=== PATIENT | male | born 1980 | race Caucasian/White ===

== ENCOUNTER 2019-03-03 20:47 | Inpatient (IN) ==
[2019-03-03] MEDS ORDERED: KETOROLAC 30 MG/ML VIAL IV ONE (21:04)
[2019-03-03] MEDS ORDERED: MoRPHine SULFATE 4 MG/ML 1 ML CARP\\VIAL IV STA (21:04)
[2019-03-03] MEDS ORDERED: CLINDAMYCIN 600 MG in DEXTROSE 5% 50 ML IV ONE (21:06)
[2019-03-03 21:20] LABS: Basophils # (auto) 0.06 K/uL (0-0.2); Basophils % (auto) 0.5 %; Eosinophils # (auto) 0.04 K/uL (0-0.5); Eosinophils % (auto) 0.3 %; Hematocrit (blood only) 42.2 % (42-52); Hemoglobin 14.9 g/dL (14.0-18.0); Immature Granulocytes # (auto) 0.03 K/uL (0.00-0.02); Immature Granulocytes % (auto) 0.2 %; Lymphocytes % (auto) 14.6 %; Mean Corpuscular Hemoglobin 36.4 pg (25-34); Mean Corpuscular Hgb Conc 35.3 g/dL (32-36); Mean Corpuscular Volume 103.2 fL (80-100); Mean Platelet Volume 8.7 fL (7.4-10.4); Monocytes # (auto) 1.55 K/uL (0.11-0.59); Monocytes % (auto) 12.6 %; Neutrophils # (auto) 8.82 K/uL (1.4-6.5); Neutrophils % (auto) 71.8 %; Platelet Count 204 K/uL (130-400); RDW Coefficient of Variation 12.3 % (11.5-14.5); RDW Standard Deviation 46.7 fL (36.4-46.3); Red Blood Count 4.09 M/uL (4.7-6.1)
[2019-03-03] MEDS ORDERED: IOVERSOL 100ml IV PRN (21:29)
[2019-03-03 21:31] LABS: iSTAT Blood Urea Nitrogen < 3 mg/dl (7-18); iSTAT Carbon Dioxide 27 mEq/l (24-31); iSTAT Chloride 98 mEq/L (101-112); iSTAT Glucose 103 mg/dl (70-99); iSTAT Hematocrit 44 % (42-52); iSTAT Ionized Calcium 1.12 mmol/l (1.12-1.32); iSTAT Potassium 3.9 mEq/L (3.3-5.0); iSTAT Sodium 135 mEq/L (135-144)
[2019-03-03 21:36] LABS: Albumin Level 3.9 gm/dl (3.4-5.0); BUN Creatinine Ratio 4.5 (10-20); Calcium 9.6 mg/dl (8.5-10.1); Creatinine Clr Calc Pharmacy 153.4 ml/min; Est GFR (African American) 146.8; Est GFR (Non-African American) 126.6
[2019-03-03 21:39] LABS: Bilirubin,Total 0.7 mg/dl (0.2-1); Globulin 3.8 gm/dl (2.5-4.0); Total Protein 7.7 gm/dl (6.4-8.2)
--- NOTE | 2019-03-03 22:12 | CT Scan Report ---
CT facial bones w con HISTORY: r sided facial swelling TECHNIQUE: Multiaxial CT images of the maxillofacial region were performed and reformatted in the cor onal plane following the use of intravenous contrast. COMPARISON STUDY: None. FINDINGS: The visualized brain parenchyma and orbits are unremarkable. Subcutaneous fat stranding and swelling within the right side of the face. There is also mild right cervical lymphadenopathy. Domin ant posterior chain lymph node measures 3.4 x 1.5 x 0.8 cm. The major cervical vessels enhance normal ly. Prevertebral soft tissues and the epiglottis are normal in thickness. The major salivary glands e nhance symmetrically. A few mildly enlarged submental lymph nodes and left submandibular lymph nodes. Multiple dental caries are present. Small periapical lucencies are noted within the bilateral lower molars and a left upper molar. There is also a periapical lucency at ADA 1 and 2 which demonstrates e xtensive/expansion into the right maxillary sinus. This could represent a large infected periapical l ucency or odontogenic cyst. This measures 2.7 x 2.8 x 1.7 cm and occupies the floor the right maxilla ry sinus. There is focal cortical breakthrough measuring 8 mm along the lower lateral portion of this periapical lucency with extension into the adjacent buccal soft tissues consistent with an abscess. This measures 1.7 x 0.5 cm and is best seen on image 138 of 261. This likely accounts for the right f acial soft tissue swelling. There is also near complete opacification of the right maxillary sinus wi th an associated fluid level and partial opacification of the right ethmoid air cells which is also c oncerning for underlying infection. IMPRESSION: 1. A 2.8 x 2.7 x 1.7 cm periapical lucency/infected odontogenic cyst at the level of ADA 1 and 2 whic h extends into the floor of the right maxillary sinus. There is also focal cortical breakthrough arslan g the lower lateral portion of this abnormality with an associated 1.7 x 0.5 cm soft tissue abscess a t the buccal surface of the lower maxilla. Oral maxillofacial surgery consultation recommended for fu rther evaluation. 2. Right facial soft tissue swelling. 3. Cervical lymphadenopathy. This is nonspecific but likely reactive. 4. Right-sided sinus disease as described above. 5. Multiple dental caries are noted. Electronically signed by: Song Acuna M.D. 03/03/2019 10:11 PM
[2019-03-03] MEDS: NICOTINE 21 MG/24 HR TDSY TD SCH (23:44)
[2019-03-03] MEDS ORDERED: LORazepam 1 MG/2 ML VIAL IV PRN (23:47)
--- NOTE | 2019-03-04 00:12 | Emergency Department Note ---
Entered by Chloe Ghosh acting as a scribe for History of Present Illness General Chief complaint: Infection Stated complaint: SEVER INFECTION MOUTH JAW NOSE AND EYE Source: patient History of Present Illness Onset (ago): day(s) (2) Location: face and mouth (jaw and teeth) Maximum Pain Intensity: 10 Current Pain Intensity: 9 Quality: + other (infection) Associated symptoms: + denies other symptoms (difficulty breathing) and + other (right eye pain, runny nose); no cough and no fever/chills The patient is a 39 year old male who presents to the Emergency Room with complaints of an infection in his jaw and teeth beginning 2 days ago. The patient states it began in his upper jaw. The patient reports the pain as a 9/10. He denies any recent dental trauma. The patient reports pain with movement of his right eye. He notes a runny nose. The patient denies cough, fever, and difficulty breathing. He reports similar symptoms previously. Pain is significantly worsened with eating and drinking. He also notes that breathing does worsen the pain. Any palpation of the right side of his face also worsens the pain. Home Medications Home Medications Medication Instructions Recorded Confirmed Type multivitamin 1 tab PO DAILY 03/03/19 03/03/19 History Allergies Allergy/AdvReac Type Severity Reaction Status Date / Time No Known Allergies Allergy Verified 03/03/19 21:38 Past Med/Surg History Medical History No significant past medical history Surgical History Hx of tonsillectomy Family History Other No pertinent family history Social History Preferred Language: Syriac marital status: Current Living Situation: Spouse and Family current occupational status: employed Feels Safe at Home: Yes Smoking Status: Current every day smoker Review of Systems See HPI for pertinent positives & negatives. and A total of 10 systems reviewed and were otherwise negative Physical Exam Vital Signs Vital Signs - 24 hr 03/03/19 20:52 03/03/19 21:42 03/03/19 22:57 Temperature Source Oral Pulse Rate 107 H Pulse Rate [Right Finger] 100 H Respiratory Rate 16 20 Respiratory Effort / Characteristics Non-Labored Non-Labored Respiratory Depth Normal Normal Blood Pressure 145/93 H Blood Pressure [Right Arm] 119/91 Blood Pressure Mean 110 Blood Pressure Mean [Right Arm] 100 Blood Pressure Position Sitting Pulse Oximetry 99 99 100 Oxygen Delivery Method Room Air Room Air Room Air Sepsis Recent Fever Within 48 Hours No Sepsis New/Unexplained Change in Mental Status No Sepsis Action Taken by Nursing No Action Required GENERAL: Sitting up in bed, disheveled, mild distress, holding right side of face EYE EXAM: normal conjunctiva FACE: Swelling below right eye and over right check. OROPHARYNX: No swelling below tongue. Tolerates secretions. Poor dentition. Number 1 tooth with black stub present. Teeth 3, 4, and 5 are fractured with multiple dental carries, stained yellow, no palpable abscess. NECK: supple, no nuchal rigidity, no adenopathy, non-tender LUNGS: Clear to auscultation. Normal chest wall mechanics HEART: no murmurs, S1 normal and S2 normal ABDOMEN: abdomen soft, non-tender, normo-active bowel sounds, no masses, no rebound or guarding. SKIN: no rashes and no bruising UPPER EXTREMITIES: upper extremities are grossly normal. LOWER EXTREMITIES: No pitting edema. NEURO EXAM: Normal sensorium Course Course ED COURSE: Vital signs were reviewed and showed tachycardia and hypertension. The patients medical record was reviewed The above diagnostic studies were performed and reviewed. ED treatments and interventions as stated above. 2100: The patient was evaluated in room B08. A complete history and physical examination was performed. 2229: Upon reevaluation, the patient is resting more comfortably.I discussed my findings with the patient and he understands and agrees with the treatment plan. I spoke with Dr. Morales [facility] Hospitalist who agrees to further manage the patient. Based on the patients age, coexisting illnesses, exam and lab findings the decision to treat as an inpatient was made. The patient remained stable while under my care. The patient will be evaluated for further management. Administered Medications Ioversol (Optiray 320 100ml) 93 ml IV ONCE PRN PRN Reason: Interaction Checking Stop: 03/07/19 21:28 Last Admin: 03/03/19 21:29 Dose: 93 ml Documented by: [id number] Nicotine (Nicoderm Cq) 21 mg TD QAM ELSY Stop: 04/02/19 23:39 Last Admin: 03/03/19 23:44 Dose: 21 mg Documented by: [id number] Discontinued Medications Clindamycin Phosphate 600 mg/ (Dextrose) 54 mls @ 100 mls/hr IV ONE ONE Stop: 03/03/19 21:38 Last Infusion: 03/03/19 22:16 Dose: 0 mls/hr Documented by: [id number] Admin: 03/03/19 21:41 Dose: 100 mls/hr Documented by: [id number] Ketorolac Tromethamine (Toradol) 30 mg IV NOW ONE Stop: 03/03/19 21:05 Last Admin: 03/03/19 21:38 Dose: 30 mg Documented by: [id number] Morphine Sulfate (Morphine Sulfate) 4 mg IV NOW STA Stop: 03/03/19 21:05 Last Admin: 03/03/19 21:38 Dose: 4 mg Documented by: [id number] Medical Decision Making Differential Diagnosis Differential diagnoses includes but is not limited to dental fracture, dental carries, and dental abscess. Medical Records Attestation: I reviewed the patient's medical records. Home Medications Current Medication List: was personally reviewed by me Laboratory Data Attestation: I reviewed the patient's lab results. Result diagrams: 03/03/19 21:13 03/03/19 21:13 Lab Results 03/03/19 03/03/19 03/03/19 Range/Units 21:13 21:13 21:16 WBC 12.30 H (4.8-10.8) K/uL RBC 4.09 L (4.7-6.1) M/uL Hgb 14.9 (14.0-18.0) g/dL POC Hgb 15.0 (14.0-18.0) g/dl Hct 42.2 (42-52) % POC Hct 44 (42-52) % MCV 103.2 H (80-100) fL MCH 36.4 H (25-34) pg MCHC 35.3 (32-36) g/dL RDW Std Deviation 46.7 H (36.4-46.3) fL RDW Coeff of Shanika 12.3 (11.5-14.5) % Plt Count 204 (130-400) K/uL MPV 8.7 (7.4-10.4) fL Immature Gran % (Auto) 0.2 % Neut % (Auto) 71.8 % Lymph % (Auto) 14.6 % [place] % (Auto) 12.6 % Eos % (Auto) 0.3 % Baso % (Auto) 0.5 % Immature Gran # (Auto) 0.03 H (0.00-0.02) K/uL Neut # (Auto) 8.82 H (1.4-6.5) K/uL Lymph # (Auto) 1.80 (1.2-3.4) K/uL [place] # (Auto) 1.55 H (0.11-0.59) K/uL Eos # (Auto) 0.04 (0-0.5) K/uL Baso # (Auto) 0.06 (0-0.2) K/uL POC Sodium 135 (135-144) mEq/L Sodium 135 L (136-145) mmol/L POC Potassium 3.9 (3.3-5.0) mEq/L Potassium 4.0 (3.5-5.1) mmol/L POC Chloride 98 L (101-112) mEq/L Chloride 101 (98-107) mmol/L Carbon Dioxide 28 (21-32) mmol/L POC Total CO2 27 (24-31) mEq/l Anion Gap 7.0 (3-11) POC Anion Gap 14.0 L (16-25) mmol/L POC BUN < 3 L (7-18) mg/dl BUN 3 L (7-18) mg/dl Creatinine 0.58 L (0.6-1.4) mg/dl POC Creatinine 1.0 (0.6-1.3) mg/dl Est Cr Clr Drug Dosing 153.4 ml/min Est GFR ( Amer) 146.8 Est GFR (Non-Af Amer) 126.6 BUN/Creatinine Ratio 4.5 L (10-20) Glucose 101 H (70-99) mg/dl POC Glucose (other) 103 H (70-99) mg/dl Calcium 9.6 (8.5-10.1) mg/dl POC Ioniz Calcium Ancelmo 1.12 (1.12-1.32) mmol/l Total Bilirubin 0.7 (0.2-1) mg/dl AST 16 (15-37) U/L ALT 20 (12-78) U/L Alkaline Phosphatase 65 (45-117) U/L Total Protein 7.7 (6.4-8.2) gm/dl Albumin 3.9 (3.4-5.0) gm/dl Globulin 3.8 (2.5-4.0) gm/dl Albumin/Globulin Ratio 1.0 (0.9-2) Imaging Data Radiologist's Impression: Radiology results as stated below per my review and the radiologist's interpretation: CT facial bones w con HISTORY: r sided facial swelling TECHNIQUE: Multiaxial CT images of the maxillofacial region were performed and reformatted in the coronal plane following the use of intravenous contrast. COMPARISON STUDY: None. FINDINGS: The visualized brain parenchyma and orbits are unremarkable. Subcutaneous fat stranding and swelling within the right side of the face. There is also mild right cervical lymphadenopathy. Dominant posterior chain lymph node measures 3.4 x 1.5 x 0.8 cm. The major cervical vessels enhance normally. Prevertebral soft tissues and the epiglottis are normal in thickness. The major salivary glands enhance symmetrically. A few mildly enlarged submental lymph nodes and left submandibular lymph nodes. Multiple dental caries are present. Small periapical lucencies are noted within the bilateral lower molars and a left upper molar. There is also a periapical lucency at ADA 1 and 2 which demonstrates extensive/expansion into the right maxillary sinus. This could represent a large infected periapical lucency or odontogenic cyst. This measures 2.7 x 2.8 x 1.7 cm and occupies the floor the right maxillary sinus. There is focal cortical breakthrough measuring 8 mm along the lower lateral portion of this periapical lucency with extension into the adjacent buccal soft tissues consistent with an abscess. This measures 1.7 x 0.5 cm and is best seen on image 138 of 261. This likely accounts for the right facial soft tissue swelling. There is also near complete opacification of the right maxillary sinus with an associated fluid level and partial opacification of the right ethmoid air cells which is also concerning for underlying infection. IMPRESSION: 1. A 2.8 x 2.7 x 1.7 cm periapical lucency/infected odontogenic cyst at the level of ADA 1 and 2 which extends into the floor of the right maxillary sinus. There is also focal cortical breakthrough along the lower lateral portion of this abnormality with an associated 1.7 x 0.5 cm soft tissue abscess at the buccal surface of the lower maxilla. Oral maxillofacial surgery consultation recommended for further evaluation. 2. Right facial soft tissue swelling. 3. Cervical lymphadenopathy. This is nonspecific but likely reactive. 4. Right-sided sinus disease as described above. 5. Multiple dental caries are noted. Electronically signed by: Song Acuna M.D. 03/03/2019 10:11 PM Blood Pressure Blood Pressure Findings: Elevated blood pressure Blood Pressure Disposition: elevated BP felt to be situational MDM Narrative Patient is a 39-year-old male who presents the ER for 2 days worth of right- sided facial swelling. Pain is significantly worsened. He notes he has some pain with range of motion of his eye. On exam he does have swelling to the anterior right face. Vital show that he is tachycardic. Labs show a leukoc ytosis of 12.3 thousand. No significant anemia. BMP was unremarkable along with LFTs bilirubin. CT of the face shows a moderate dental abscess with erosion of the right maxillary sinus. Patient was given IV fluids and IV narcotics along with IV clindamycin. He was updated bedside. Discussed with oral maxillary facial surgery. Patient will be admitted to the hospitalist. Both patient and significant other were updated bedside. Impression & Plan Dental abscess, Facial swelling, Facial pain Discharge Plan Visit Data Chief Complaint: Infection Stated Complaint: SEVER INFECTION MOUTH JAW NOSE AND EYE ED Provider: Leonel Guevara Discharge Problem: Dental abscess, Facial swelling, Facial pain Patient Disposition: Being Evaluated by Hospitalist Discharge Instructions Interventions: ED Discharge Assessment Last Done: 03/04/19 00:00 Forms Stand Alone Forms: My [facility] [employer] Prescriptions Prescriptions: No Action multivitamin Tablet,Chewable 1 tab PO DAILY RF: 0 Referrals Referrals: PCP,NO [Primary Care Provider] - The scribe's documentation has been prepared under my direction and personally reviewed by me in its entirety. I confirm that the note above accurately reflects all work, treatment, procedures, and medical decision making performed by me.
[2019-03-04] MEDS: HYDROmorphone INJ 0.5 MG/0.5 ML SYR IV PRN ×4 (00:27→20:17)
[2019-03-04] MEDS ORDERED: ONDANSETRON INJ 2 MG/ML 2 ML VIAL IV PRN (00:48)
[2019-03-04] MEDS ORDERED: POLYETHYLENE (MIRALAX) 17 GM PACK PO PRN (00:48)
[2019-03-04] MEDS: SODIUM CHLORIDE 0.9% 1000ML 1,000 ML IV SCH ×3 (01:01→20:42)
--- NOTE | 2019-03-04 02:44 | History and Physical Report ---
DATE OF ADMISSION: 03/03/2019 CHIEF COMPLAINT: Dental infection. HISTORY OF PRESENT ILLNESS: This is a 39-year-old male with past medical history significant for dental infection, in the past he was supposed to get tooth extracted about 2 years ago but was not done because of insurance issues , history of tobacco abuse,presents with dental infection at his right side since last 3 days and the right side of the face is swollen. He has pain shooting into his head and his ears, not able to eat food, has a fever at home which prompted him to come to the ER. In the ER, imaging studies with CAT scan was done which shows a periapical infected odontogenic cyst at the level of ADA 1 and 2 which extends into the floor of the right maxillary sinus and also a soft tissue abscess in the buccal surface of the lower maxilla. ER talked to oral maxillofacial surgery and they are going to come and see the patient in the morning. IV clindamycin was given in the ER and patient requiring IV pain medications. Currently, resting comfortable and hemodynamically stable. Has headache and earache from the infection. No runny nose. No chest pain, no shortness of breath, no cough, he felt nauseous due to pain, no abdominal pain. No diarrhea or constipation, no black stools or bloody stools. No hematuria or burning micturition, no swelling in the legs, no rash. ALLERGIES: No known drug allergies. PAST SURGICAL HISTORY: Tonsillectomy. MEDICATIONS: Multivitamins. FAMILY HISTORY: Significant for mother had diabetes. Father had COPD. Aunt has diabetes. Maternal grandmother has lung cancer, she was a smoker. SOCIAL HISTORY: He says he is and lives with his . Smokes one and a half pack cigarettes day. Alcohol, drinks 2 or 3 beers every day. No drug use. REVIEW OF SYMPTOMS: As per HPI. Rest of review of systems negative. PHYSICAL EXAMINATION: GENERAL: The patient is of moderate build, not in acute distress. VITAL SIGNS: Temperature, afebrile, pulse 100, respiratory rate 20, blood pressure 119/91, oxygen 100% room air. HEENT: No pallor, no icterus. Pupils equal, round, reactive to light. Right-sided face is swollen. No erythema seen. tender to palpation. NECK: No JVD, no neck masses. CARDIOVASCULAR: S1, S2 heard, regular rate and rhythm, no murmur, no gallop. RESPIRATORY SYSTEM: Normal AP diameter. No accessory muscle use. No wheezing, no crackles. ABDOMEN: Soft, bowel sounds present, nontender. No distention. CENTRAL NERVOUS SYSTEM: Cranial nerves II-XII grossly intact. Nonfocal. EXTREMITIES: No edema, no erythema. LABORATORY DATA: WBC 12.3, hemoglobin 14.9, hematocrit 42.2, platelets 204. Sodium 135, potassium 4, chloride 101, bicarbonate 28, BUN 3, creatinine 0.5, serum glucose 101, calcium 9.6, total bilirubin 0.7, AST 16, ALT 20, alkaline phosphatase 65,. Facial CT 2.8 x 2.7 x 1.7 periapical lucency infected odontogenic cyst at the level of ADA 1 and 2 which extends to the floor of the right maxillary sinus. There is also a focal cortical breakthrough along the lower lateral portion of this abnormality with an associated 1.7 x 0.5 cm soft tissue abscess at the buccal surface of the lower maxilla. Oral maxillofacial surgery consultation is recommended for further evaluation. Right facial soft tissue swelling, cervical lymphadenopathy, this is nonspecific, but likely reactive. Right sinus disease, multiple dental caries as noted. ASSESSMENT AND PLAN: This is a 39-year-old male who presents with dental abscess. 1. Dental abscess and also multiple dental caries, IV antibiotics with clindamycin 600 t.i.d. Oral surgeon was notified by the ER and will consult in a.m. Keep him n.p.o., IV fluids, pain control. 2. Tobacco use: On nicotine patch. 3. Alcoholism: drinks beers 2 or 3 beers per day . Denies withdrawal symptoms if he doesn't drink.We will give IV thiamine and folic acid, IV Ativan p.r.n. for any withdrawal symptoms. 3. Deep venous thrombosis prophylaxis, sequential compression devices for now. 4. Disposition: Admit to medical floor. Level 1 full code. MTDD
[2019-03-04] MEDS: CLINDAMYCIN 600 MG in DEXTROSE 5% 50 ML IV SCH ×3 (05:22→21:14)
[2019-03-04 05:25] LABS: Basophils # (auto) 0.05 K/uL (0-0.2); Basophils % (auto) 0.5 %; Eosinophils # (auto) 0.03 K/uL (0-0.5); Eosinophils % (auto) 0.3 %; Hematocrit (blood only) 39.8 % (42-52); Hemoglobin 13.8 g/dL (14.0-18.0); Immature Granulocytes # (auto) 0.03 K/uL (0.00-0.02); Immature Granulocytes % (auto) 0.3 %; Lymphocytes # (auto) 1.91 K/uL (1.2-3.4); Lymphocytes % (auto) 19.5 %; Mean Corpuscular Hgb Conc 34.7 g/dL (32-36); Mean Corpuscular Volume 103.9 fL (80-100); Mean Platelet Volume 8.7 fL (7.4-10.4); Monocytes % (auto) 14.3 %; Neutrophils # (auto) 6.35 K/uL (1.4-6.5); Neutrophils % (auto) 65.1 %; Platelet Count 184 K/uL (130-400); RDW Coefficient of Variation 12.4 % (11.5-14.5); RDW Standard Deviation 47.4 fL (36.4-46.3); Red Blood Count 3.83 M/uL (4.7-6.1); White Blood Count 9.77 K/uL (4.8-10.8)
[2019-03-04 05:40] LABS: BUN Creatinine Ratio 6.7 (10-20); Blood Urea Nitrogen 4 mg/dl (7-18); Calcium 8.6 mg/dl (8.5-10.1); Carbon Dioxide 25 mmol/L (21-32); Chloride 107 mmol/L (98-107); Creatinine Clr Calc Pharmacy 166.6 ml/min; Est GFR (African American) > 150.0; Est GFR (Non-African American) 131.4; Glucose 80 mg/dl (70-99); Magnesium 2.3 mg/dl (1.8-2.4); Potassium 4.1 mmol/L (3.5-5.1); Sodium 138 mmol/L (136-145)
[2019-03-04] MEDS: ACETAMINOPHEN 325 MG TAB PO PRN ×2 (05:42→12:53)
--- NOTE | 2019-03-04 07:43 | Surgery Consultation ---
Date of Consultation Reason for consult=acute right side upper facial swelling--3 cm collection of pus from infected teeth. Review of CT scan=I reviewed the CT scan and agree with the reading, acute infection upper right, very poor dentition and reactive nodes. Oral Exam-extensive dental decay and fractured teeth, all teeth are beyond repair and future full mouth extraction will be needed. Draining fistula and gross decay noted on almost every tooth. Present Complaint:pain, swelling Upper right side and face abscess A detailed oral exam was completed. Soft tissue---swelling right cheek, mucobuccal fold, draining fistula noted on many teeth and localized infection Oral Care---Overall oral care is very poor Occlusion---N/A TMJ exam---No pop, clicking, pain, good ROM Periodontal exam---poor The soft tissue of the tongue, floor of mouth, palate (hard/soft) all WNL Right posterior =abscess from infected teeth, chronic gingival infection from decayed teeth Neck is supple, FROM, Able to extend and flex neck w/o difficulty, Tender right submandular glands due to current right side infection. Plan: Discussed findings and treatment plan with patient, he is in agreement. Take patient to the OR and drain the infection upper right side, will need to extract teeth # 1,2,3,4,5 maybe other as this is an extensive infection and localized infection involving the upper right teeth and whole upper jaw. I will plan OR today. History of Present Illness Attending Physician: Shahram Arreguin DO Allergies Allergy/AdvReac Type Severity Reaction Status Date / Time No Known Allergies Allergy Verified 03/03/19 21:38 Home Medications Home Medications Medication Instructions Recorded Confirmed Type multivitamin 1 tab PO DAILY 03/03/19 03/03/19 History Patient History Medical History No significant past medical history Surgical History Hx of tonsillectomy Family History Other No pertinent family history Social History Preferred Language: Slovenian Communication Ability: Effective Dye Blender Required: No Beliefs That Will Affect Care: None marital status: Current Living Situation: Spouse current occupational status: employed Feels Safe at Home: Yes Safety Concerns: Feels Safe At This Time Smoking Status: Current every day smoker Tobacco Type: cigarettes ; Cigarettes Per Day: 20 ; Do You Dip or Chew Tobacco: No ; Tobacco Cessation Education Requested by Patient: No Hx Alcohol Use: Yes Alcohol type: beer Hx Substance Use: No Results & Data Vital Signs (Past 12 Hours) Vital Signs Temp Pulse Pulse Resp BP BP Pulse Ox 03/04/19 00:10 37.1 C 101 H 18 118/73 94 03/03/19 22:57 100 H 20 119/91 100 03/03/19 21:42 99 03/03/19 20:52 107 H 16 145/93 H 99 PG Care Time/CCT Total # of Minutes Spent Total Time Spent with Patient: Total time spent is greater than 50% in coordination of care (as documented) at patient's floor/unit and/or counseling patient:
--- NOTE | 2019-03-04 07:51 | Hospitalist Progress Note ---
Date of Service March 04, 2019 Assessment & Plan (1) Dental abscess: ASSESSMENT AND PLAN: This is a 39-year-old male who presents with dental abscess. 1. Dental abscess and also multiple dental caries, IV antibiotics with clindamycin 600 t.i.d. Oral surgeon was notified by the ER and has seen the patient Keep him n.p.o., IV fluids, pain control. 2. Tobacco use: On nicotine patch. 3. Alcoholism: drinks beers 2 or 3 beers per day . Denies withdrawal symptoms if he doesn't drink.We will give IV thiamine and folic acid, IV Ativan p.r.n. for any withdrawal symptoms. 4. Leukocytosis 5. Deep venous thrombosis prophylaxis, sequential compression devices for now. Disposition: DC after OMFS workup complete Labs reviewed ROS-No Headache, No Visual Changes, No Nausea, No Vomiting, No Fever, No Chills, No Neck Pain or Stiffness, No Chest Pain, No Palpitations, No SOB, No BROOKS, No Cough, No Sputum, No Wheezing, No Abdominal Pain, No Diarrhea, No Hematemesis, No Hemoptysis, No Unexpected Weight Loss, No Flank pain, No Melena, No Hematochezia, No Frequency, No Urgency, No Burning, No Hematuria, No Rashes, No Diaphoresis. Appetite is Normal, +Facial Pain and Swelling R>L Physical Exam Gen-AAO x 3, NAD, Afebrile Head-NCAT, EOMI, PERRLA, Anicteric Sclera, No Posterior Pharyngeal Erythema Neck-Supple, No JVD, No Thyromegaly, No Masses, No LAD, No Bruits Lungs-Clear to Auscultation Bilaterally, No Rales, No Rhonchi, No Wheezing, No Crepitus Chest-No S4, +S1, +S2, No S3, No Murmurs, No Rubs, No Gallops, No Ectopy Abdomen-Soft, Bowel Sounds Present, Non Tender, Non Distended, No Hepatomegaly, No Splenomegaly, No Palpable Masses, No Rebound, No Rigidity, No Guarding Musculoskeletal-Full Range of Motion Bilaterally, No CVAT Extremities-No Cyanosis, No Clubbing, No Edema Nuero-Cranial Nerves II-XII grossly intact, Motor WNL, DTRs WNL, Strength WNL, Non Focal Psych-Normal Mood Results & Data Vital Signs (Past 12 Hours) Vital Signs Temp Pulse Pulse Resp BP BP Pulse Ox 03/04/19 00:10 37.1 C 101 H 18 118/73 94 03/03/19 22:57 100 H 20 119/91 100 03/03/19 21:42 99 03/03/19 20:52 107 H 16 145/93 H 99 Allergies No Known Allergies Allergy (Verified 03/03/19 21:38) Height/Weight/Isolation Height 5 ft 10 in Weight 64.2 kg CBC 03/03/19 03/03/19 03/03/19 21:13 21:13 21:16 WBC 12.30 H RBC 4.09 L Hgb 14.9 POC Hgb 15.0 Hct 42.2 POC Hct 44 MCV 103.2 H MCH 36.4 H MCHC 35.3 RDW Std Deviation 46.7 H RDW Coeff of Shanika 12.3 Plt Count 204 MPV 8.7 Immature Gran % (Auto) 0.2 Neut % (Auto) 71.8 Lymph % (Auto) 14.6 [place] % (Auto) 12.6 Eos % (Auto) 0.3 Baso % (Auto) 0.5 Immature Gran # (Auto) 0.03 H Neut # (Auto) 8.82 H Lymph # (Auto) 1.80 [place] # (Auto) 1.55 H Eos # (Auto) 0.04 Baso # (Auto) 0.06 POC Sodium 135 Sodium 135 L POC Potassium 3.9 Potassium 4.0 POC Chloride 98 L Chloride 101 Carbon Dioxide 28 POC Total CO2 27 Anion Gap 7.0 POC Anion Gap 14.0 L POC BUN < 3 L BUN 3 L Creatinine 0.58 L POC Creatinine 1.0 Est Cr Clr Drug Dosing 153.4 Est GFR ( Amer) 146.8 Est GFR (Non-Af Amer) 126.6 BUN/Creatinine Ratio 4.5 L Glucose 101 H POC Glucose (other) 103 H Calcium 9.6 POC Ioniz Calcium Ancelmo 1.12 Magnesium Total Bilirubin 0.7 AST 16 ALT 20 Alkaline Phosphatase 65 Total Protein 7.7 Albumin 3.9 Globulin 3.8 Albumin/Globulin Ratio 1.0 03/04/19 03/04/19 05:13 05:13 WBC 9.77 RBC 3.83 L Hgb 13.8 L POC Hgb Hct 39.8 L POC Hct MCV 103.9 H MCH 36.0 H MCHC 34.7 RDW Std Deviation 47.4 H RDW Coeff of Shanika 12.4 Plt Count 184 MPV 8.7 Immature Gran % (Auto) 0.3 Neut % (Auto) 65.1 Lymph % (Auto) 19.5 [place] % (Auto) 14.3 Eos % (Auto) 0.3 Baso % (Auto) 0.5 Immature Gran # (Auto) 0.03 H Neut # (Auto) 6.35 Lymph # (Auto) 1.91 [place] # (Auto) 1.40 H Eos # (Auto) 0.03 Baso # (Auto) 0.05 POC Sodium Sodium 138 POC Potassium Potassium 4.1 POC Chloride Chloride 107 Carbon Dioxide 25 POC Total CO2 Anion Gap 6.0 POC Anion Gap POC BUN BUN 4 L Creatinine 0.53 L POC Creatinine Est Cr Clr Drug Dosing 166.6 Est GFR ( Amer) > 150.0 Est GFR (Non-Af Amer) 131.4 BUN/Creatinine Ratio 6.7 L Glucose 80 POC Glucose (other) Calcium 8.6 POC Ioniz Calcium Ancelmo Magnesium 2.3 Total Bilirubin AST ALT Alkaline Phosphatase Total Protein Albumin Globulin Albumin/Globulin Ratio Chemistry 03/03/19 03/04/19 21:13 05:13 Sodium 135 L 138 Potassium 4.0 4.1 Chloride 101 107 Carbon Dioxide 28 25 Anion Gap 7.0 6.0 BUN 3 L 4 L Creatinine 0.58 L 0.53 L Glucose 101 H 80
[2019-03-04] MEDS ORDERED: INFLUENZA ADMINISTRATION CHARGE ONE (08:30)
[2019-03-04] MEDS ORDERED: INFLUENZA VIRUS QUAD VACCINE 0.5 ML SYR IM ONE (08:30)
[2019-03-04] MEDS ORDERED: NICOTINE 21 MG/24 HR TDSY TD SCH (09:00)
[2019-03-04] MEDS ORDERED: FOLIC ACID 1 MG in SYRINGE 9.8 ML IV SCH (09:00)
[2019-03-04] MEDS ORDERED: THIAMINE HCL 100 MG in SYRINGE 9 ML IV SCH (09:00)
[2019-03-04] MEDS: NICOTINE 21 MG/24 HR TDSY TD SCH (09:32)
[2019-03-04] MEDS: CEROVITE ADV FORMULA TAB PO SCH (09:32)
--- NOTE | 2019-03-04 13:46 | Anesthesiology Consultation ---
Date of Service March 04, 2019 Assessment & Plan (1) Encounter for pre-operative examination: Chart Review Chart Review: Acceptable Risk for Surgery History Surgery Operation Date: 03/04/19 09:40 Proposed Procedures p Right Incision and Drainage Upper Face Abscess - Vitaly Desir, DMD s 2 Dental Extractions, Possible Multiple - Vitaly Desir DMD Height/Weight Height: 5 ft 10 in Weight: 64.2 kg Allergies Allergy/AdvReac Type Severity Reaction Status Date / Time No Known Allergies Allergy Verified 03/03/19 21:38 Medications Home Medications Medication Instructions Recorded Confirmed Last Taken multivitamin 1 tab PO DAILY 03/03/19 03/03/19 Unknown Active Medications Generic Name Dose Route Start Last Admin Trade Name Freq PRN Reason Stop Dose Admin Acetaminophen 650 mg 03/04/19 00:48 03/04/19 12:53 Tylenol PO 04/03/19 00:47 650 mg Q4H PRN Administration pain/fever Hydromorphone HCl 0.5 mg 03/03/19 23:40 03/04/19 07:32 Dilaudid IV 03/17/19 23:39 0.5 mg Q3H PRN Administration Pain Thiamine HCl 100 mg/ Syringe 10 mls @ 2 mls/min 03/04/19 09:00 03/04/19 09:07 IV 04/03/19 08:59 2 mls/min QAM ELSY Administration Folic Acid 1 mg/ Syringe 10 mls @ 5 mls/min 03/04/19 09:00 03/04/19 09:07 IV 04/03/19 08:59 5 mls/min QAM ELSY Administration Sodium Chloride 1,000 mls @ 125 mls/hr 03/04/19 00:55 03/04/19 09:06 Nss 1000ml IV 04/03/19 00:54 125 mls/hr .Q8H ELSY Administration Clindamycin Phosphate 600 mg/ 54 mls @ 100 mls/hr 03/04/19 06:00 03/04/19 13:30 Dextrose IV 03/14/19 05:59 100 mls/hr Q8H ELSY Administration Miscellaneous 1 ea 03/04/19 08:59 03/04/19 09:17 Remove Nicoderm Patch N/A 04/03/19 08:58 1 ea [id number] ELSY Administration Multivitamins/Minerals 1 tab 03/04/19 09:00 03/04/19 09:32 Multivitamin W/ Minerals Tab PO 04/03/19 08:59 1 tab QAM ELSY Administration Nicotine 21 mg 03/03/19 23:40 03/04/19 09:32 Nicoderm Cq TD 04/02/19 23:39 21 mg QAM ELSY Administration Past Medical History Medical History No significant past medical history Past Family History Family History Other No pertinent family history Past Surgical History Surgical History Hx of tonsillectomy Social History Smoking Status: Current every day smoker tobacco type: cigarettes Smoking cigarettes per day: 20 Do You Dip or Chew Tobacco: No Hx Alcohol Use: Yes Alcohol type: beer alcohol intake frequency: 0-2 drinks per day Hx Substance Use: No Physical Exam Vital Signs Last Vital Signs Temp 37.0 C 03/04/19 08:00 Pulse 80 03/04/19 08:00 Resp 18 03/04/19 08:00 BP 118/62 03/04/19 08:00 Pulse Ox 96 03/04/19 08:00 Testing Laboratory Results 03/04/19 05:13 03/04/19 05:13
[2019-03-04] MEDS ORDERED: BUPIVACAINE/EPINEPHRINE 0.5% 1:200,000 1.8 ML CARP ONE ×2 (16:14→18:08)
[2019-03-04] MEDS ORDERED: CHLORHEXIDINE GLUCONATE 0.12% 480 ML ONE (16:14)
[2019-03-04] MEDS ORDERED: MIDAZOLAM HCL 1 MG/ML 2ML VIAL ONE (17:10)
[2019-03-04] MEDS ORDERED: fentaNYL citrate 100 MCG/2 ML VIAL ONE ×3 (17:10→19:33)
[2019-03-04] MEDS ORDERED: ROCURONIUM BROMIDE 10 MG/ML 5 ML VIAL ONE (17:13)
[2019-03-04] MEDS ORDERED: PROPOFOL IV EMULSION 10 MG/ML 20 ML VIAL IV ONE (17:13)
[2019-03-04] MEDS ORDERED: LIDOCAINE HCL 2% 2 ML VIAL/AMP(20MG/ML) INFIL ONE (17:13)
[2019-03-04] MEDS ORDERED: ATROPINE SULFATE 0.1 MG/ML 10ML SYR IV PRN (17:22)
[2019-03-04] MEDS ORDERED: ePHEDrine sulfate 50 MG/ML AMP IV PRN (17:22)
[2019-03-04] MEDS ORDERED: fentaNYL citrate 100 MCG/2 ML VIAL IV PRN (17:22)
--- NOTE | 2019-03-04 17:24 | History & Physical Bridge Note ---
Date of Service March 04, 2019 History & Physical Bridge Note I have examined the patient, reviewed the History & Physical and in the interval since the performance of the History & Physical I have noted the following changes of clinical significance: no changes noted. swelling continues upper right side. Plan I&D and extraction of involved teeth.
[2019-03-04] MEDS ORDERED: PHENYLEPHRINE 100MCG/ML 5ML SYR ONE (18:40)
[2019-03-04] MEDS ORDERED: DEXAMETHASONE SOD INJ 4 MG/ML VIAL ONE (18:45)
[2019-03-04] MEDS ORDERED: ONDANSETRON INJ 2 MG/ML 2 ML VIAL ONE (18:45)
--- NOTE | 2019-03-04 19:03 | History & Physical Bridge Note ---
Date of Service March 04, 2019 History & Physical Bridge Note I have examined the patient, reviewed the History & Physical and in the interval since the performance of the History & Physical I have noted the following changes of clinical significance: no changes noted
--- NOTE | 2019-03-04 19:04 | Post Operative Brief Note ---
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 culture naso maxillary abscess B. sinus fistula - pathology
--- NOTE | 2019-03-04 19:28 | Anesthesiology Progress Note ---
Date of Service March 04, 2019 Anesthesia Post Procedure Vital Signs Vital Signs: Temp Pulse Pulse Pulse Resp BP BP 03/04/19 17:07 37.2 C 98 H 96 H 16 148/96 H 03/04/19 15:26 36.9 C 73 16 132/83 03/04/19 08:00 37.0 C 80 18 118/62 03/04/19 00:10 37.1 C 101 H 18 118/73 03/03/19 22:57 100 H 20 119/91 03/03/19 21:42 03/03/19 20:52 107 H 16 145/93 H Pulse Ox 03/04/19 17:07 100 03/04/19 15:26 100 03/04/19 08:00 96 03/04/19 00:10 94 03/03/19 22:57 100 03/03/19 21:42 99 03/03/19 20:52 99 Pain Intensity Mouth: Pain Intensity: 8 Transfer of Care Handoff Completed per policy Notes Mental Status: alert / awake / arousable and participated in evaluation Patient Amnestic to Procedure: Yes Nausea / Vomiting: adequately controlled Pain: adequately controlled Airway Patency, RR, SpO2: stable & adequate BP & HR: stable & adequate Hydration State: stable & adequate Anesthetic Complications: no major complications apparent and Pt Satisfied with anesthetic care
[2019-03-04] MEDS ORDERED: cloNIDine HCL 0.1 MG TAB PO PRN (21:30)
[2019-03-04] MEDS ORDERED: MoRPHine SULFATE 2 MG/ML CARP IV PRN (22:05)
[2019-03-04] MEDS: MoRPHine SULFATE 2 MG/ML CARP IV PRN (22:14)
[2019-03-05] MEDS: MoRPHine SULFATE 2 MG/ML CARP IV PRN ×3 (00:22→07:34)
[2019-03-05] MEDS: CLINDAMYCIN 600 MG in DEXTROSE 5% 50 ML IV SCH (05:01)
[2019-03-05] MEDS: SODIUM CHLORIDE 0.9% 1000ML 1,000 ML IV SCH (05:02)
[2019-03-05] MEDS: ACETAMINOPHEN 325 MG TAB PO PRN (06:09)
[2019-03-05 06:40] LABS: Hemoglobin 14.1 g/dL (14.0-18.0); Mean Corpuscular Hemoglobin 35.6 pg (25-34); Mean Corpuscular Hgb Conc 33.6 g/dL (32-36); Mean Corpuscular Volume 106.1 fL (80-100); Mean Platelet Volume 9.6 fL (7.4-10.4); Platelet Count 247 K/uL (130-400); RDW Standard Deviation 46.6 fL (36.4-46.3); Red Blood Count 3.96 M/uL (4.7-6.1); White Blood Count 10.96 K/uL (4.8-10.8)
[2019-03-05 07:14] LABS: BUN Creatinine Ratio 10.2 (10-20); Calcium 9.3 mg/dl (8.5-10.1); Creatinine Clr Calc Pharmacy 149.6 ml/min; Est GFR (African American) 145.8; Est GFR (Non-African American) 125.8; Potassium 4.4 mmol/L (3.5-5.1)
[2019-03-05] MEDS: NICOTINE 21 MG/24 HR TDSY TD SCH (07:35)
[2019-03-05] MEDS: CEROVITE ADV FORMULA TAB PO SCH (07:36)
--- NOTE | 2019-03-05 07:50 | Discharge Summary ---
Date of Service March 05, 2019 Principal Diagnosis Dental Abscess Leukocytosis Nausea and Vomiting Discharge Exam See Below Discharge Data Allergies Allergy/AdvReac Type Severity Reaction Status Date / Time No Known Allergies Allergy Verified 03/03/19 21:38 Consultations 03/03/19 22:31 ED Decision to Admit Stat 03/04/19 08:00 Consult Oromaxillofacial Surgery Routine Current Diagnoses Periapical abscess without sinus (03/03/19) Encounter for other preprocedural examination (03/03/19) Allergies No Known Allergies Allergy (Verified 03/03/19 21:38) Height/Weight/Isolation Height 5 ft 10 in Weight 64.2 kg Chemistry 03/03/19 03/04/19 03/05/19 21:13 05:13 05:48 Sodium 135 L 138 132 L Potassium 4.0 4.1 4.4 Chloride 101 107 99 Carbon Dioxide 28 25 21 Anion Gap 7.0 6.0 12.0 H BUN 3 L 4 L 6 L Creatinine 0.58 L 0.53 L 0.59 L Glucose 101 H 80 156 H Microbiology 03/04/19 Unknown Face Gram Stain - Final 03/04/19 Unknown Face Aerobic and Anaerobic Culture - Pending Procedures Performed Operation Date: 03/04/19 09:40 Actual Procedures p Right Incision and Drainage Upper Face Abscess, closure oral sinus opening(Right) - Vitaly Desir DMD s Dental Extractions 16 teeth and roots(Right) - Vitaly Desir DMD Ordered Studies 03/03/19 21:04 CT facial bones w con Stat Hospital Course (1) Dental abscess: ASSESSMENT AND PLAN: This is a 39-year-old male who presents with dental abscess. 1. Dental abscess and also multiple dental caries, IV antibiotics with clindamycin 600 t.i.d. Oral surgeon extracted 16 teeth 2. Tobacco use: On nicotine patch. 3. Alcohol use: drinks beers 2 or 3 beers per day Disposition: DC today on Clindamycin and Percocet, F/U c Dr Desir in the office 2-3 weeks Labs reviewed ROS-No Headache, No Visual Changes, No Nausea, No Vomiting, No Fever, No Chills, No Neck Pain or Stiffness, No Chest Pain, No Palpitations, No SOB, No BROOKS, No Cough, No Sputum, No Wheezing, No Abdominal Pain, No Diarrhea, No Hematemesis, No Hemoptysis, No Unexpected Weight Loss, No Flank pain, No Melena, No Hematochezia, No Frequency, No Urgency, No Burning, No Hematuria, No Rashes, No Diaphoresis. Appetite is Normal, Less Facial Pain and considerably less Swelling Physical Exam Gen-AAO x 3, NAD, Afebrile, Poor dentition Head-NCAT, EOMI, PERRLA, Anicteric Sclera, No Posterior Pharyngeal Erythema Neck-Supple, No JVD, No Thyromegaly, No Masses, No LAD, No Bruits Lungs-Clear to Auscultation Bilaterally, No Rales, No Rhonchi, No Wheezing, No Crepitus Chest-No S4, +S1, +S2, No S3, No Murmurs, No Rubs, No Gallops, No Ectopy Abdomen-Soft, Bowel Sounds Present, Non Tender, Non Distended, No Hepatomegaly, No Splenomegaly, No Palpable Masses, No Rebound, No Rigidity, No Guarding Musculoskeletal-Full Range of Motion Bilaterally, No CVAT Extremities-No Cyanosis, No Clubbing, No Edema Nuero-Cranial Nerves II-XII grossly intact, Motor WNL, DTRs WNL, Strength WNL, Non Focal Psych-Normal Mood Total Time Total Time Spent Total Time Spent (In Minutes): 45 mins Total Time Includes: Examination of the Patient, Discharge Planning, Medication Reconciliation and Communication With Other Providers Discharge Plan Discharge Items Patient Disposition: Home - Self-Care Reason For Visit: DENTAL INFECTION Discharge Diagnosis: Dental Abscess Leukocytosis Nausea and Vomiting Condition on Discharge: Good Activity: Resume your previous activity Lifting: Gradually increase as tolerated Bathing: No limitations Sexual Activity: When tolerated Exercise/Sports: Gradually increase as tolerated Driving/Machine Use: No limitations Weightbearing: Full weightbearing Non-emergency contact: Primary Care Provider and Surgeon Call non-emergency contact if: you have any medication questions Follow-up/Referrals: PCP,NO [Primary Care Provider] - Vitaly Desir DMD [Physician] - (2-3 weeks) Diet: Regular Diet Texture: Dental soft (bite-sized) Addtl Attending Provider Instructions: None Pending Studies at Discharge: No Stand-Alone Forms: My [place], Smoking Cessation Medications and DC Order Prescriptions: New acetaminophen [Mapap (acetaminophen)] 325 mg Tablet 650 mg PO Q4H PRN (Reason: fever or pain) Qty: 100 RF: 0 oxycodone-acetaminophen [Percocet] 5-325 mg tablet 1 tab PO Q6H PRN (Reason: pain) Qty: 30 RF: 0 clindamycin HCl 300 mg capsule 300 mg PO Q8H 7 Days Qty: 21 RF: 0 Continued multivitamin Tablet,Chewable 1 tab PO DAILY RF: 0 Discharge Orders: Discharge Order (Routine); Ordered 03/05/19 Ordered By: Shahram Arreguin Admission Data Admit Date/Time: 03/03/19 23:40 Attending Provider: Shahram Arreguin Admit Provider: Prateek Morales Primary Care Provider: PCP,NO Other Providers: Prateek Morales ; Vitaly Desir
--- NOTE | 2019-03-05 08:44 | Progress Note ---
Date of Service Post op note --surgery Thursday at 5:30 PM in OR Today doing great. Swelling is decreased and pain level improved, oral sites look good, sinus opening well closed, suture line looks great, no air leak. OK for D/C today--reviewed diet, Oral care, Peridex rinse, need for follow up. Due to sinus opening -need to avoid smoking, discussed nasal spray and avoid nos e blowing. Follow up was stressed but I get the feeling that he does not want to take any more time off work to see me. Damon has my card and phone number and I stress the need to follow up and need for the other teeth to be removed soon to avoid further infection on the left side. Overall excellent result Rx as pr the hospital service. RTC w/in 10-12 days =follow up March 05, 2019 Results & Data Vital Signs (Past 12 Hours) Vital Signs Temp Pulse Resp BP BP Pulse Ox 03/05/19 08:24 37.2 C 77 18 137/84 99 03/05/19 07:15 37.2 C 77 18 137/84 99 03/05/19 03:39 37.0 C 83 15 139/88 98 03/04/19 23:13 36.8 C 78 15 153/90 H 98 03/04/19 22:02 36.7 C 79 16 166/87 H 96 03/04/19 20:58 37.3 C 76 16 165/95 H 98 PG Care Time/CCT Total # of Minutes Spent Total Time Spent with Patient: Total time spent is greater than 50% in coordination of care (as documented) at patient's floor/unit and/or counseling patient:
--- NOTE | 2019-03-05 09:38 | Operative Report ---
DATE OF OPERATION: 03/04/2019 PREOPERATIVE DIAGNOSES: Severe infection of the right nasolabial zygomatic area as well as an extensive swelling in the mucobuccal fold of the right side with multiple carious teeth. 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 OPERATION: Incision and drainage of acute infection of right maxilla, extraction of multiple teeth of maxilla and right lower jaw and closure of large oral sinus opening right side. DESCRIPTION OF PROCEDURE: After the patient was cleared to undergo general anesthesia, he was brought down to the operating room and placed under general anesthesia via an orotracheal intubation. After adequate anesthesia was obtained, the patient was prepped and draped in the usual manner for oral surgery. At this time, a time-out was taken to ensure that we had the correct patient, position, antibiotics were on board and all instrument and equipment was available. Everyone agreed and the operation now began. At this time, the facial area was prepped in the usual manner. Sterile dressings were applied around the facial area. Sterile dressing was applied. The tube was positioned to allow for good access to the right side. The oral cavity was suctioned dried. A gauze pressure dressing was applied into the trachea to keep the tube in position and also to prevent any fluids from getting down into the stomach and long area. At this time, Peridex mouth rinse was irrigated into the mouth and allowed to sit for a minute or so before was suctioned dried and I turned my attention to the right maxilla. With the use of Marcaine anesthesia, I was able to give local anesthesia mostly on the palatal aspect of the maxilla due to the fact that there was such gross swelling and edematous tissue in the mucolabial fold. I also gave an inferior alveolar block on the right side. I now turned my attention to the infected area. The tissue was quite fluctuant and with the use of a 15 blade, an incision was made in the mucoperiosteal tissue and I was able to express a large amount of pus from the area. This material was then cultured for both aerobic and anaerobic bacteria. At this time, it was obvious that the infection most likely developed from grossly carious teeth which were tooth #1 and #2 on the upper right side. With the use of rongeurs and dental forceps, I was able to remove these root particles and fractured teeth. By doing so, more pus was expressed in the sinus. The 2 sockets were filled with devitalized bone and a lot of granulation tissue. When I removed the granulation tissue, it was obvious that there was a very large cystic cavity within the sinus. The sinus itself was not violated, but there was definitely a cyst within the sinus that was walled off from the sinus separately. I spent a lot of time cleaning out the cystic lining, which could represent an odontogenic lesion. Nevertheless, this tissue was submitted for pathologic determination. At this time, it was obvious that I needed to obtain a lot of soft tissue relaxation to close this very large opening which was almost 20 mm in length and about 7-8 mm in width. Unfortunately, the surrounding tissues were grossly edematous and the teeth were cariously involved and infected almost to the gumline. As I discussed with the patient preoperatively, there was definitely a need to remove these grossly infected teeth to ensure good closure of the opening into the maxillary sinus and to prevent a recurrence of infection. Once again with the use of a 15 blade, I was able to make an incision around the necks of the teeth from tooth #[address] the midline to tooth #12. I reflected the mucoperiosteal flap and by doing so, another loculation of pus in the nasolabial maxillary area was encountered. This was drained with introducing a hemostat into the area. At this time, I irrigated the area to make sure that there was no other loculations of pus. Now using rongeurs and dental forceps, I was able to remove tooth #3, 4, 5, 6, 7, 8, 9, 10, 11 and 12. Once the teeth were removed, I then used a curette and curetted each of the sockets. Tooth #3 and tooth #4 had gross infection at the socket and it was obvious that these teeth did communicate with the sinus once the granulation tissue was removed. Using rongeurs, I was able to perform an alveoplasty to remove all of the irregular bone and then smoothed it out with a file. Once this was done, I then used a fresh 15 blade, incised the very scarred periosteum to get some relaxation. I also reflected the palatal tissue and smoothed down some of the irregular bone in this area. Once again filing it down, irrigating it and reflecting the tissue. I was able to now get a very relaxed soft tissue closure over the maxilla and especially over the posterior maxilla where the large opening was. It was obvious that I had some difficulty in closing the tissue posteriorly so to prevent any tension on the wound in this area. I used a 15 blade and made an incision high into the tuberosity area and then reflected the tissue with a periosteal elevator and then incised the periosteum. By doing so, I was able to get a very nice closure of the whole maxilla from the posterior area to tooth #12 area without any tension. At this time, we irrigated the maxillary sinus. I used curettes and adequate suction to clean out the sinus. When we were done, irrigating the sinus was relatively clear. The closure was now started with the use of a 4-0 Vicryl suture in a hammock suture method. By putting a number of strategic sutures, I was able to get good relaxation of the tissue and started the closure. After this was completed, I now used a 2-0 chromic suture in an interrupted fashion starting from the most posterior area and ending in the anterior region. By doing so, we had excellent closure. To add another layer of security using a 3 Vicryl suture, I was able to place a number of Hammock sutures in the posterior area where the large opening was to again take tension off the suture line. When all was said and done, we had very nice closure of the maxillary area with no air leaks encountered. Because of the patient's very abnormal occlusion when I closed the jaws, some of the lower teeth were impinging on the surgical site. Since these teeth were also grossly carious and decayed, I elected to remove some lower teeth to prevent trauma to the sinus closure area. In essence, I removed tooth #32, 30, 29 and 28. At this time, I sutured the area after irrigating the sockets. We were finally completed with the procedure. The oral cavity was irrigated and suctioned dried. The oropharyngeal throat pack was removed. I introduced a large bore suction to clean out the oral cavity. I cleaned out the nasal cavity and the oropharyngeal areas as well. I passed an orogastric tube to evacuate the contents of the stomach. At this time, the patient was turned over to the anesthesia department. Once he was awake and alert, the anesthetic tube was removed. Gauze pressure dressings were applied into the right side. The patient was transferred to the recovery room for postoperative management. In the recovery room, I evaluated the patient. He was awake. He was alert. He had no bleeding. I checked the sinus opening and we had good closure without any air leaks. I will be seeing the patient on Thursday morning for discussion of discharge and followup planning. We will most likely keep him on oral antibiotics in the form of clindamycin and some form of pain medication. At this time, this is end of this dictation for Mr. Damon Day. Please note that the following procedures were done: 1. Complex incision and drainage of nasomaxillary infection as well as drainage of right maxillary sinus infection, removal of 16 teeth going from tooth #1 to tooth #12 on the upper and tooth #28, 29, 30 and 32 on the lower. Primary closure of a large oral sinus opening was completed as well as routine alveoplasties. I attest to the content of the Intraoperative Record and any orders documented therein. Any exception s are noted below.
== END 2019-03-05 09:40 | disposition home or self-care (01) | DRG 134 ==
LOC: ED 20:47 → 3W 23:40
DX: K04.7 Periapical abscess without sinus

== ENCOUNTER 2022-04-14 13:24 | Inpatient (IN) ==
[2022-04-14 16:09] LABS: Basophils # (auto) 0.11 K/uL (0-0.2); Basophils % (auto) 1.3 %; Eosinophils # (auto) 0.05 K/uL (0-0.50); Eosinophils % (auto) 0.6 %; Hematocrit (blood only) 40.4 % (40.1-51.0); Hemoglobin 14.9 g/dl (14.0-18.0); Immature Granulocytes # (auto) 0.03 K/uL (0.00-0.02); Immature Granulocytes % (auto) 0.4 %; Lymphocytes # (auto) 1.86 K/uL (1.2-3.4); Lymphocytes % (auto) 21.9 %; Mean Corpuscular Hemoglobin 38.4 pg (25.0-34.0); Mean Corpuscular Hgb Conc 36.9 g/dL (32.0-36.0); Mean Corpuscular Volume 104.1 fL (80.0-100.0); Mean Platelet Volume 8.6 fL (9.4-12.4); Monocytes # (auto) 0.86 K/uL (0.24-0.82); Monocytes % (auto) 10.1 %; Neutrophils # (auto) 5.57 K/uL (1.4-6.5); Neutrophils % (auto) 65.7 %; Platelet Count 206 K/uL (130-400); RDW Coefficient of Variation 12.9 % (11.5-14.5); RDW Standard Deviation 49.6 fL (36.4-46.3); Red Blood Count 3.88 M/uL (4.63-6.08); White Blood Count 8.48 K/ul (4.8-10.8)
[2022-04-14 16:32] LABS: Albumin Globulin Ratio 1.6 (0.9-2); Albumin Level 4.6 gm/dl (3.4-5.0); BUN Creatinine Ratio 9.1 (10-20); Bilirubin,Total 0.5 mg/dl (0.2-1.0); Calcium 9.4 mg/dl (8.5-10.1); Creatinine Clr Calc Pharmacy 154.7 ml/min; Est GFR (African American) 146.9 ml/min; Est GFR (Non-African American) 126.7 ml/min; Globulin 2.9 gm/dl (2.5-4.0); Potassium 4.1 mmol/L (3.5-5.1); Total Protein 7.5 gm/dl (6.0-8.3)
[2022-04-14 18:58] LABS: Appearance Urine Clear (Clear); Bilirubin Urine Negative (Negative); Blood Urine Negative (Negative); Color Urine Yellow; Glucose Urine UA Negative (Negative); Ketones Urine Negative (Negative); Leukocyte Esterase Urine Negative (Negative); Nitrite Urine Negative (Negative); Protein Urine Negative (Negative); Specific Gravity Urine 1.006 (1.000-1.030); Urobilinogen Urine Negative (Negative)
[2022-04-14] MEDS ORDERED: LORazepam 2 MG/1 ML VIAL IV STA (19:13)
[2022-04-14] MEDS ORDERED: SODIUM CHLORIDE 0.9% 1000ML 2,000 ML IV ONE (19:13)
--- NOTE | 2022-04-14 19:13 | Emergency Department Note ---
Impression & Plan Alcohol withdrawal, Alcoholic intoxication, Transaminitis ED Provider Note NAME: DANIEL DUGGAN AGE: 42 SEX: M : 1980 ARRIVES VIA: Walk-In INFORMANT: Patient ED PROVIDER(S): Leonel Guevara DO CHIEF COMPLAINT: withdraw HPI: Patient is a 42-year-old male who presents to the ER as he wants to stop drinking. His last drink was around 10 AM. He notes he is very tremulous and feels his heart racing. He generally drinks about 18 beers a day plus some. He denies any headache or change in vision. No chest pain or shortness of breath. He admits to nausea but no vomiting. No dysuria, urgency, or frequency. No cough or congestion. He denies any thoughts when hurt himself or hurt anyone else. ROS: See above HPI for pertinent positives & negatives. A total of 10 systems reviewed and were otherwise negative. PAST MEDICAL HISTORY:See Below PAST SURGICAL HISTORY:See Below FAMILY HISTORY:See Below SOCIAL HISTORY:See Below HOME MEDICATIONS:See Below ALLERGIES:See Below VITALS:See Below PHYSICAL EXAMINATION: GENERAL: Sitting up in bed, alert, mild distress, diffuse shaking of the upper and lower extremities, EYE EXAM: normal conjunctiva. OROPHARYNX: mucous membranes are dry LUNGS: Clear to auscultation. Normal chest wall mechanics HEART: no murmurs, S1 normal and S2 normal ABDOMEN: abdomen soft, non-tender, normo-active bowel sounds, no masses, no rebound or guarding. BACK: Back is symmetrical on inspection and there is no deformity, no midline tenderness, no CVA tenderness. SKIN: no rashes and no bruising UPPER EXTREMITIES: upper extremities are grossly normal. LOWER EXTREMITIES: No pitting edema. NEURO EXAM: Normal sensorium, cranial nerves II-XII grossly intact, normal speech, no gross weakness of arms, no gross weakness of legs. MEDICAL DECISION MAKING: Patient is a 42-year-old male who presents to the ER for the above-stated complaint. He is an alcoholic and drinks about 18 beers a day. Last drink was earlier today. He was stopped drinking. He notes he has persistent tremors and cannot stop shaking. Denies any headache or change in vision. No chest pain or shortness of breath. No nausea vomiting or diarrhea. No dysuria urgency or frequency. No other exacerbating or remitting factors. Upon evaluation he has persistent tremors. IV Ativan. Labs show no significant leukocytosis or anemia. BMP with mild hyponatremia at 132. Mild transaminitis of the 70s. Troponin negative. Lipase unremarkable. COVID-negative. Alcohol was elevated at 280. He was given IV Ativan as he was having tremors and was slightly hypertensive and mildly tachycardic. Updated bedside discussed with Dr. Ruiz approved for further evaluation. Triage Nursing notes reviewed. Limited review of prior medical records performed Vital Signs: reviewed and remarkable for HTN Differential diagnosis: Infection, dehydration, metabolic abnormality, hypo/hyperglycemia, electrolyte disturbance, anemia, hypoxia, cardiac sources, intracerebral event, toxicologic, neurologic, as well as other pathologies. ER treatment provided: See below Diagnostics interpreted by me: ECG: Sinus rhythm rate 82 Normal axis J-point elevation throughout QTC 4 4 Cardiac Monitoring: An order was placed for continuous cardiac monitoring. The monitor shows a rate of 90 with sinus rhythm. Laboratory studies: As stated above and show below. Imaging studies: Portable AP upright 1 view of the chest unremarkable Consultation(s): Discussed with the hospitalist for further evaluation Procedures: none Critical Care: None Past Med/Surg History Medical History (Updated 04/15/22 @ 00:14 by Leonel Guevara DO) No significant past medical history Surgical History Hx of tonsillectomy Family History Father COPD (chronic obstructive pulmonary disease) Social History Smoking Status: Current every day smoker Tobacco Type: Cigarettes Cigarettes Per Day: 1 pack a day; Hx Alcohol Use: Yes Alcohol type: beer and hard liquor Hx Substance Use: No Preferred Language: Macedonian Communication Ability: Effective Visual Impairment: No Limitations Rounding Machine Tender Required: No Beliefs That Will Affect Care: None marital status: Current Living Situation: Spouse current occupational status: employed Other Information That Helps Us Care for You: No Feels Safe at Home: Yes Safety Concerns: Feels Safe At This Time Assistive Devices: None Allergies Allergies Allergy/AdvReac Type Severity Reaction Status Date / Time No Known Allergies Allergy Verified 04/14/22 20:10 Home Meds Home Medications Medication Instructions Recorded Confirmed multivitamin 1 tab PO DAILY 12/26/22 12/26/22 Results & Data (ED) Vital Signs Vital Signs - 24 hr 04/14/22 14:00 04/14/22 18:43 04/14/22 18:43 Temperature 36.9 C 37.2 C Temperature Source Temporal Artery Scan Oral Pulse Rate 111 H Pulse Rate [Apical] 81 Pulse Rhythm [Apical] Pulse Strength [Apical] Respiratory Rate 18 14 Respiratory Effort / Characteristics Non-Labored Spontaneous Respiratory Depth Normal Respiratory Pattern Regular Blood Pressure 149/88 H Blood Pressure [Left Arm] 169/104 H Blood Pressure Mean 108 Blood Pressure Mean [Left Arm] 125 Blood Pressure Position Sitting Blood Pressure Position [Left Arm] Pulse Oximetry 98 98 Oxygen Delivery Method Room Air Room Air Room Air Sepsis Recent Fever Within 48 Hours No Sepsis New/Unexplained Change in Mental Status No Sepsis Action Taken by Nursing No Action Required 04/14/22 19:18 04/14/22 20:00 Temperature Temperature Source Pulse Rate Pulse Rate [Apical] 82 Pulse Rhythm [Apical] Regular Pulse Strength [Apical] Normal Respiratory Rate 18 Respiratory Effort / Characteristics Non-Labored Respiratory Depth Normal Respiratory Pattern Regular Blood Pressure Blood Pressure [Left Arm] 162/99 H Blood Pressure Mean Blood Pressure Mean [Left Arm] 120 Blood Pressure Position Blood Pressure Position [Left Arm] Lying Pulse Oximetry 98 97 Oxygen Delivery Method Room Air Room Air Sepsis Recent Fever Within 48 Hours Sepsis New/Unexplained Change in Mental Status Sepsis Action Taken by Nursing Laboratory Data Result diagrams: 04/14/22 15:55 04/14/22 15:55 Lab Results 04/14/22 04/14/22 04/14/22 Range/Units 15:55 15:55 15:55 WBC 8.48 (4.8-10.8) K/ul RBC 3.88 L (4.63-6.08) M/uL Hgb 14.9 (14.0-18.0) g/dl Hct 40.4 (40.1-51.0) % MCV 104.1 H (80.0-100.0) fL MCH 38.4 H (25.0-34.0) pg MCHC 36.9 H (32.0-36.0) g/dL RDW Std Deviation 49.6 H (36.4-46.3) fL RDW Coeff of Shanika 12.9 (11.5-14.5) % Plt Count 206 (130-400) K/uL MPV 8.6 L (9.4-12.4) fL Immature Gran % (Auto) 0.4 % Neut % (Auto) 65.7 % Lymph % (Auto) 21.9 % [place] % (Auto) 10.1 % Eos % (Auto) 0.6 % Baso % (Auto) 1.3 % Neut # (Auto) 5.57 (1.4-6.5) K/uL Lymph # (Auto) 1.86 (1.2-3.4) K/uL [place] # (Auto) 0.86 H (0.24-0.82) K/uL Eos # (Auto) 0.05 (0-0.50) K/uL Baso # (Auto) 0.11 (0-0.2) K/uL Immature Gran # (Auto) 0.03 H (0.00-0.02) K/uL Sodium 132 L (136-145) mmol/L Potassium 4.1 (3.5-5.1) mmol/L Chloride 96 L (98-107) mmol/L Carbon Dioxide 29 (21-32) mmol/L Anion Gap 7 (3-11) BUN 5 L (6-23) mg/dl Creatinine 0.55 L (0.6-1.4) mg/dl Est Cr Clr Drug Dosing 154.7 ml/min Est GFR ( Amer) 146.9 ml/min Est GFR (Non-Af Amer) 126.7 ml/min BUN/Creatinine Ratio 9.1 L (10-20) Glucose 97 (70-99(Fasting)) mg/dl Calcium 9.4 (8.5-10.1) mg/dl Magnesium (1.7-2.4) mg/dl Total Bilirubin 0.5 (0.2-1.0) mg/dl AST 78 H (13-39) U/L ALT 56 H (7-52) U/L Alkaline Phosphatase 73 (34-104) U/L Troponin I High Sens (0-20) pg/ml Total Protein 7.5 (6.0-8.3) gm/dl Albumin 4.6 (3.4-5.0) gm/dl Globulin 2.9 (2.5-4.0) gm/dl Albumin/Globulin Ratio 1.6 (0.9-2) Lipase (11-82) U/L Urine Color Urine Appearance (Clear) Urine pH (4.5-7.5) Ur Specific [place] (1.000-1.030) Urine Protein (Negative) Urine Glucose (UA) (Negative) Urine Ketones (Negative) Urine Blood (Negative) Urine Nitrite (Negative) Urine Bilirubin (Negative) Urine Urobilinogen (Negative) Ur Leukocyte Esterase (Negative) Ethyl Alcohol mg/dL 225.7 H (<10.0) mg/dl SARS-CoV-2, RNA, NAAT (NEGATIVE) 04/14/22 04/14/22 04/14/22 Range/Units 15:55 18:39 19:30 WBC (4.8-10.8) K/ul RBC (4.63-6.08) M/uL Hgb (14.0-18.0) g/dl Hct (40.1-51.0) % MCV (80.0-100.0) fL MCH (25.0-34.0) pg MCHC (32.0-36.0) g/dL RDW Std Deviation (36.4-46.3) fL RDW Coeff of Shanika (11.5-14.5) % Plt Count (130-400) K/uL MPV (9.4-12.4) fL Immature Gran % (Auto) % Neut % (Auto) % Lymph % (Auto) % [place] % (Auto) % Eos % (Auto) % Baso % (Auto) % Neut # (Auto) (1.4-6.5) K/uL Lymph # (Auto) (1.2-3.4) K/uL [place] # (Auto) (0.24-0.82) K/uL Eos # (Auto) (0-0.50) K/uL Baso # (Auto) (0-0.2) K/uL Immature Gran # (Auto) (0.00-0.02) K/uL Sodium (136-145) mmol/L Potassium (3.5-5.1) mmol/L Chloride (98-107) mmol/L Carbon Dioxide (21-32) mmol/L Anion Gap (3-11) BUN (6-23) mg/dl Creatinine (0.6-1.4) mg/dl Est Cr Clr Drug Dosing ml/min Est GFR ( Amer) ml/min Est GFR (Non-Af Amer) ml/min BUN/Creatinine Ratio (10-20) Glucose (70-99(Fasting)) mg/dl Calcium (8.5-10.1) mg/dl Magnesium 2.4 (1.7-2.4) mg/dl Total Bilirubin (0.2-1.0) mg/dl AST (13-39) U/L ALT (7-52) U/L Alkaline Phosphatase (34-104) U/L Troponin I High Sens 4.5 (0-20) pg/ml Total Protein (6.0-8.3) gm/dl Albumin (3.4-5.0) gm/dl Globulin (2.5-4.0) gm/dl Albumin/Globulin Ratio (0.9-2) Lipase 59 (11-82) U/L Urine Color Yellow Urine Appearance Clear (Clear) Urine pH 7.0 (4.5-7.5) Ur Specific [place] 1.006 (1.000-1.030) Urine Protein Negative (Negative) Urine Glucose (UA) Negative (Negative) Urine Ketones Negative (Negative) Urine Blood Negative (Negative) Urine Nitrite Negative (Negative) Urine Bilirubin Negative (Negative) Urine Urobilinogen Negative (Negative) Ur Leukocyte Esterase Negative (Negative) Ethyl Alcohol mg/dL (<10.0) mg/dl SARS-CoV-2, RNA, NAAT NEGATIVE (NEGATIVE) Administered Medications Folic Acid (Folic Acid 1 Mg Tab) [facility] [place] [facility] [place] Stop: 05/14/22 23:11 Last Admin: 04/14/22 23:29 Dose: 1 mg Documented By: FOREST Nicotine (Nicotine 21 Mg/24 Hr Tdsy) 21 mg TD Q24H [facility] Stop: 05/14/22 20:59 Last Admin: 04/14/22 21:07 Dose: 21 mg Documented By: NEHAS Thiamine HCl (Thiamine Hcl 100 Mg Tab) 100 mg PO QAM [facility] Stop: 05/14/22 23:11 Last Admin: 04/14/22 23:28 Dose: 100 mg Documented By: VK Discontinued Medications Gabapentin (Gabapentin 600 Mg Tab) 1,200 mg PO NOW ONE Stop: 04/14/22 23:13 Last Admin: 04/14/22 23:28 Dose: 1,200 mg Documented By: VK Sodium Chloride (Nss 1000ml) 2,000 mls @ 999 mls/hr IV .Q2H1M ONE Stop: 04/14/22 21:13 Last Infusion: 04/14/22 20:59 Dose: 0 mls/hr Documented By: Admin: 04/14/22 19:30 Dose: 999 mls/hr Documented By: LRS Multivitamins 10 ml/ Thiamine HCl 100 mg/ Folic Acid 1 mg/Sodium Chloride 1,011.2 mls @ 1,011.2 mls/hr IV .Q1H ONE Stop: 04/14/22 21:59 Last Admin: 04/14/22 22:15 Dose: 1,011.2 mls/hr Documented By: VK Lorazepam (Lorazepam 2 Mg/1 Ml Vial) 2 mg IV NOW STA Stop: 04/14/22 19:14 Last Admin: 04/14/22 19:30 Dose: 2 mg Documented By: LRS Imaging Data Radiologist's Impression: Chest X-Ray 04/14/22 19:13 SINGLE VIEW CHEST CLINICAL HISTORY: Atypical chest pain. FINDINGS: An AP, portable, upright chest radiograph is obtained. No prior studies are available for comparison at the time of dictation. The cardiomediastinal silhouette is unremarkable. The lungs and pleural spaces are clear. No pneumothorax is seen. The bony thorax is grossly intact. Bilateral nipple piercings are in place. IMPRESSION: No active disease in the chest. ACT 112: Negative or not required by law. Electronically signed by: Costa Ríos M.D. 04/14/2022 7:30 PM Discharge Plan Visit Data Chief Complaint: Detox Request Stated Complaint: DETOX REQUEST ED Provider: Leonel Guevara Discharge Problem: Alcohol withdrawal, Alcoholic intoxication, Transaminitis Patient Disposition: Admitted As Inpatient Discharge Instructions Interventions: ED Discharge Assessment Last Done: 04/14/22 21:47
--- NOTE | 2022-04-14 19:32 | XRay Report ---
SINGLE VIEW CHEST CLINICAL HISTORY: Atypical chest pain. FINDINGS: An AP, portable, upright chest radiograph is obtained. No prior studies are available for c omparison at the time of dictation. The cardiomediastinal silhouette is unremarkable. The lungs and p leural spaces are clear. No pneumothorax is seen. The bony thorax is grossly intact. Bilateral nipple piercings are in place. IMPRESSION: No active disease in the chest. ACT 112: Negative or not required by law. Electronically signed by: Costa Ríos M.D. 04/14/2022 7:30 PM
[2022-04-14 20:13] LABS: Magnesium 2.4 mg/dl (1.7-2.4)
[2022-04-14 20:15] LABS: Troponin I High Sensitivity 4.5 pg/ml (0-20)
[2022-04-14] MEDS ORDERED: MULTI-VITAMIN INFUSION 10 ML, THIAMINE HCL 100 MG, FOLIC ACID 1 MG in SODIUM CHLORIDE 0... IV ONE (21:00)
[2022-04-14] MEDS: NICOTINE 21 MG/24 HR TDSY TD SCH (21:07)
--- NOTE | 2022-04-14 21:46 | History & Physical Report ---
Date of Service April 14, 2022 Assessment & Plan (1) Alcohol withdrawal: Plan: Admit to telemetry Patient presenting from home with request for alcohol detox. Patient reports drinking at least 15 beers/day. Last drink was at 1030 this morning. Give banana bag, start p.o. folic acid and thiamine tomorrow. Alcohol withdrawal protocol with gabapentin and as needed Ativan Patient expresses wishes to attend inpatient rehab after hospitalization DVT prophylaxis SCDs History of Present Illness Chief Complaint: Alcohol detox request Primary Care Provider: Juan Luis Blair DO 42-year-old male without significant past medical history who presents to the ED for alcohol detox request. Patient reports that he drinks at least 15 beers/day. Also drinks some occasional hard liquor. Patient reports he has been drinking this amount for the past 2 years. Patient reports experiencing tremors when he does not drink alcohol. Patient reports he was previously employed at [employer] until about 2 weeks ago when he was found drinking alcohol on the job. Patient reports his last drink was around 1030 this morning. He is currently feeling tremulous, nauseous, diaphoretic. Patient denies chest pain and palpitations. No other recent illnesses, fevers, chills. He denies abdominal pain, vomiting, diarrhea. No urinary symptoms. In the ED, patient is hemodynamically stable. Labs are unremarkable. He was given IVF and Ativan 2 mg IV. Allergies Allergy/AdvReac Type Severity Reaction Status Date / Time No Known Allergies Allergy Verified 04/14/22 20:10 Home Medications Medication Instructions Recorded Confirmed Type multivitamin 1 tab PO DAILY 04/14/22 04/14/22 History Past Med/Surg History Medical History (Updated 04/15/22 @ 00:14 by Leonel Guevara DO) No significant past medical history Surgical History Hx of tonsillectomy Family History Father COPD (chronic obstructive pulmonary disease) Social History Smoking Status: Current every day smoker Tobacco Type: Cigarettes Cigarettes Per Day: 1 pack a day; Hx Alcohol Use: Yes Alcohol type: beer and hard liquor Hx Substance Use: No Preferred Language: Tajik Communication Ability: Effective Visual Impairment: No Limitations Clinical Research Management Associate Required: No Beliefs That Will Affect Care: None marital status: Current Living Situation: Spouse current occupational status: employed Other Information That Helps Us Care for You: No Feels Safe at Home: Yes Safety Concerns: Feels Safe At This Time Assistive Devices: None Review of Systems Review of Systems: ROS per HPI, all other systems reviewed and negative Physical Exam Constitutional: WD/WN, vitals as above Eyes: PERRL, conjunctivae normal, anicteric sclerae ENMT: external ear and nose normal, oropharynx normal Respiratory: normal respiratory effort, lungs clear to auscultation Cardiovascular: Rate/Rhythm: regular rhythm and + tachycardic Vessels: normal peripheral pulses Extremities: no edema Gastrointestinal (Abdomen): normal bowel sounds, soft, nontender, no he patosplenomegaly Musculoskeletal: no cyanosis or clubbing, extremities motor strength 5/5 Skin: no rashes, warm and dry Neurologic: PERRL, EOMI, accommodation nl, no face palsy, no dysarthria Motor/Sensory: + tremor Psychiatric: A+Ox3, euthymic affect Results & Data Results & Data ([facility]) Vital Signs (Past 12 Hours) Vital Signs Temp Pulse Pulse Resp BP BP Pulse Ox 04/14/22 20:00 82 18 162/99 H 97 04/14/22 19:18 98 04/14/22 18:43 37.2 C 81 14 169/104 H 98 04/14/22 18:43 04/14/22 14:00 36.9 C 111 H 18 149/88 H 98 O2 Del Method 04/14/22 20:00 Room Air 04/14/22 19:18 Room Air 04/14/22 18:43 Room Air 04/14/22 18:43 Room Air 04/14/22 14:00 Room Air Laboratory Results Short CBC 04/14/22 Range/Units 15:55 WBC 8.48 (4.8-10.8) K/ul Hgb 14.9 (14.0-18.0) g/dl Hct 40.4 (40.1-51.0) % Plt Count 206 (130-400) K/uL BMP 04/14/22 15:55 Sodium 132 L Potassium 4.1 Chloride 96 L Carbon Dioxide 29 BUN 5 L Creatinine 0.55 L Glucose 97 Calcium 9.4 Liver Function 04/14/22 Range/Units 15:55 Total Bilirubin 0.5 (0.2-1.0) mg/dl AST 78 H (13-39) U/L ALT 56 H (7-52) U/L Alkaline Phosphatase 73 (34-104) U/L Albumin 4.6 (3.4-5.0) gm/dl Urine 04/14/22 Range/Units 18:39 Urine Color Yellow Urine Appearance Clear (Clear) Urine pH 7.0 (4.5-7.5) Ur Specific [place] 1.006 (1.000-1.030) Urine Protein Negative (Negative) Urine Glucose (UA) Negative (Negative) Diagnostic Findings Chest X-Ray 04/14/22 19:13 SINGLE VIEW CHEST CLINICAL HISTORY: Atypical chest pain. FINDINGS: An AP, portable, upright chest radiograph is obtained. No prior studies are available for comparison at the time of dictation. The cardiomediastinal silhouette is unremarkable. The lungs and pleural spaces are clear. No pneumothorax is seen. The bony thorax is grossly intact. Bilateral nipple piercings are in place. IMPRESSION: No active disease in the chest. ACT 112: Negative or not required by law. Electronically signed by: Costa Ríos M.D. 04/14/2022 7:30 PM Code Status & VTE Plan VTE Prophylaxis Plan VTE Prophylaxis will be ordered: Yes Supervising Physician Co-Signing Physician Notes Agree with above note by Tory Staples patient saying having some tremors, nausea and sweating. Hs some left facial swelling and says he is having ongoing dental problem but doing ok . No fevers. No chest pain or sob. Appetite ok. No abdominal pain.Hemodynamics stable Exam Heent: Mild swollen left cheek CVS s1 and s2 heard no murmurs RS cta b/l no added sounds Abd benign slat grader non focal ext no edema A/p Alcohol withdrawal gabapentin withdrawal protocol with ativan prn thiamine and folic acid clonidine prn close monitor Dental infection. will start on augmentin. Rest as per Tory staples
[2022-04-14] MEDS ORDERED: GABAPENTIN 600 MG TAB PO ONE (23:12)
[2022-04-14] MEDS ORDERED: ACETAMINOPHEN 325 MG TAB PO PRN (23:12)
[2022-04-14] MEDS ORDERED: GABAPENTIN 1200MG ALCOHOL WITHDRAWAL LOAD PO STA (23:12)
[2022-04-14] MEDS ORDERED: LORazepam 1 MG TAB PO PRN (23:12)
[2022-04-14] MEDS ORDERED: Ativan PO Alcohol Withdrawal--Active Protocol PO PRN (23:12)
[2022-04-14] MEDS: THIAMINE HCL 100 MG TAB PO SCH (23:28)
[2022-04-14] MEDS: FOLIC ACID 1 MG TAB PO SCH (23:29)
[2022-04-15] MEDS: GABAPENTIN 600 MG TAB PO SCH ×3 (05:01→20:05)
[2022-04-15] MEDS: LORazepam 1 MG TAB PO PRN ×2 (05:01→15:12)
[2022-04-15 05:03] LABS: Hemoglobin 14.2 g/dl (14.0-18.0); Mean Corpuscular Hemoglobin 38.1 pg (25.0-34.0); Mean Corpuscular Hgb Conc 36.4 g/dL (32.0-36.0); Mean Corpuscular Volume 104.6 fL (80.0-100.0); Mean Platelet Volume 8.8 fL (9.4-12.4); Platelet Count 168 K/uL (130-400); RDW Coefficient of Variation 13.2 % (11.5-14.5); RDW Standard Deviation 51.3 fL (36.4-46.3); Red Blood Count 3.73 M/uL (4.63-6.08); White Blood Count 7.32 K/ul (4.8-10.8)
[2022-04-15 05:22] LABS: Anion Gap 6 (3-11); BUN Creatinine Ratio 10.6 (10-20); Blood Urea Nitrogen 5 mg/dl (6-23); Calcium 7.9 mg/dl (8.5-10.1); Carbon Dioxide 25 mmol/L (21-32); Chloride 106 mmol/L (98-107); Creatinine Clr Calc Pharmacy 177.6 ml/min; Est GFR (African American) > 150.0 ml/min; Est GFR (Non-African American) 135.2 ml/min; Glucose 95 mg/dl (70-99(Fasting)); Potassium 3.9 mmol/L (3.5-5.1); Sodium 137 mmol/L (136-145)
--- NOTE | 2022-04-15 07:58 | Hospitalist Progress Note ---
Date of Service April 15, 2022 Assessment & Plan (1) Alcohol withdrawal: Plan: Admitted to telemetry Patient presenting from home with request for alcohol detox. Patient reports drinking at least 15 beers/day. Give banana bag in ED, started p.o. folic acid and thiamine - will cont. Alcohol withdrawal protocol with gabapentin and as needed Ativan Patient expresses wishes to attend inpatient rehab after hospitalization Currently no symptoms of withdrawal. Dental infection -Left-sided facial swelling -Patient reports that he has been having swelling on and off for some time, denies any pain, he is not concerned -Patient has very poor dentition, history of dental infection -Started on Augmentin on admission, will continue DVT ppx - SCDs Admission and Anticipated Discharge Date Admission Date: April 14, 2022 Subjective Patient seen for alcoholism, alcohol withdrawal, interested in going to inpatient alcohol rehab Currently laying in bed, in no acute distress He is awake alert oriented answering questions appropriately, patient is very cooperative Denies any fevers chills chest pain shortness of breath, abdominal pain, nausea vomiting Complains of sweats and some tremors He does have facial swelling, secondary to poor dentition, he says swelling comes and goes and he does not have any pain. Patient is not concerned about this. Review of Systems Review of Systems: All systems reviewed & are unremarkable except as noted in Subjective Physical Exam Physical Exam: Constitutional:L WD/WN, vitals as a ryne Eyes: PERRL, EOMI, conju nctivae normal, an icteric sclerae ENMT: + poor dentition Respiratory: normal respiratory effort, lungs emmett ar to auscultation Cardiovascular:L Rate/Rhythm: regul ar rhythm Vessels: normal peripheral pulses Extremiti es: no edema Gastrointestinal ( Abdomen): normal bowel sound s, soft, nontender , no hepatosplenom egaly Musculoskeletal: moves extremities Skin: no rashes, warm an d dry Neurologic: PERRL, EOMI, no fa ce palsy, no dysar thria, moves extre mities Motor/Sens ory: + tremor Psychiatric: A+Ox3, euthymic af fect Results & Data Results & Data ([facility]) Vital Signs (Past 12 Hours) Vital Signs Temp Pulse Pulse Resp BP BP Pulse Ox 04/15/22 07:19 36.8 C 89 18 153/94 H 97 04/15/22 07:15 04/15/22 07:15 91 H 04/15/22 04:40 36.8 C 112 H 18 165/105 H 94 04/15/22 03:07 82 14 129/86 95 04/14/22 23:30 86 04/14/22 23:30 83 18 129/86 95 04/14/22 22:31 36.7 C 92 H 18 146/90 H 95 04/14/22 22:31 88 04/14/22 20:00 82 18 162/99 H 97 O2 Del Method 04/15/22 07:19 Room Air 04/15/22 07:15 Room Air 04/15/22 07:15 04/15/22 04:40 Room Air 04/15/22 03:07 Room Air 04/14/22 23:30 04/14/22 23:30 Room Air 04/14/22 22:31 Room Air 04/14/22 22:31 04/14/22 20:00 Room Air Laboratory Results 04/15/22 04/15/22 04/14/22 Range/Units 04:57 04:57 22:15 WBC 7.32 (4.8-10.8) K/ul RBC 3.73 L (4.63-6.08) M/uL Hgb 14.2 (14.0-18.0) g/dl Hct 39.0 L (40.1-51.0) % MCV 104.6 H (80.0-100.0) fL MCH 38.1 H (25.0-34.0) pg MCHC 36.4 H (32.0-36.0) g/dL RDW Std Deviation 51.3 H (36.4-46.3) fL RDW Coeff of Shanika 13.2 (11.5-14.5) % Plt Count 168 (130-400) K/uL MPV 8.8 L (9.4-12.4) fL Immature Gran % (Auto) % Neut % (Auto) % Lymph % (Auto) % Ida % (Auto) % Eos % (Auto) % Baso % (Auto) % Neut # (Auto) (1.4-6.5) K/uL Lymph # (Auto) (1.2-3.4) K/uL Ida # (Auto) (0.24-0.82) K/uL Eos # (Auto) (0-0.50) K/uL Baso # (Auto) (0-0.2) K/uL Immature Gran # (Auto) (0.00-0.02) K/uL Sodium 137 (136-145) mmol/L Potassium 3.9 (3.5-5.1) mmol/L Chloride 106 (98-107) mmol/L Carbon Dioxide 25 (21-32) mmol/L Anion Gap 6 (3-11) BUN 5 L (6-23) mg/dl Creatinine 0.47 L (0.6-1.4) mg/dl Est Cr Clr Drug Dosing 177.6 ml/min Est GFR ( Amer) > 150.0 ml/min Est GFR (Non-Af Amer) 135.2 ml/min BUN/Creatinine Ratio 10.6 (10-20) Glucose 95 (70-99(Fasting)) mg/dl Calcium 7.9 L (8.5-10.1) mg/dl Magnesium (1.7-2.4) mg/dl Total Bilirubin (0.2-1.0) mg/dl AST (13-39) U/L ALT (7-52) U/L Alkaline Phosphatase (34-104) U/L Troponin I High Sens (0-20) pg/ml Total Protein (6.0-8.3) gm/dl Albumin (3.4-5.0) gm/dl Globulin (2.5-4.0) gm/dl Albumin/Globulin Ratio (0.9-2) Lipase (11-82) U/L Urine Color Urine Appearance (Clear) Urine pH (4.5-7.5) Ur Specific [place] (1.000-1.030) Urine Protein (Negative) Urine Glucose (UA) (Negative) Urine Ketones (Negative) Urine Blood (Negative) Urine Nitrite (Negative) Urine Bilirubin (Negative) Urine Urobilinogen (Negative) Ur Leukocyte Esterase (Negative) Nasal Screen MRSA (PCR) Negative (Negative) Ethyl Alcohol mg/dL (<10.0) mg/dl SARS-CoV-2, RNA, NAAT (NEGATIVE) 04/14/22 04/14/22 04/14/22 Range/Units 20:40 19:30 18:39 WBC (4.8-10.8) K/ul RBC (4.63-6.08) M/uL Hgb (14.0-18.0) g/dl Hct (40.1-51.0) % MCV (80.0-100.0) fL MCH (25.0-34.0) pg MCHC (32.0-36.0) g/dL RDW Std Deviation (36.4-46.3) fL RDW Coeff of Shanika (11.5-14.5) % Plt Count (130-400) K/uL MPV (9.4-12.4) fL Immature Gran % (Auto) % Neut % (Auto) % Lymph % (Auto) % Ida % (Auto) % Eos % (Auto) % Baso % (Auto) % Neut # (Auto) (1.4-6.5) K/uL Lymph # (Auto) (1.2-3.4) K/uL Ida # (Auto) (0.24-0.82) K/uL Eos # (Auto) (0-0.50) K/uL Baso # (Auto) (0-0.2) K/uL Immature Gran # (Auto) (0.00-0.02) K/uL Sodium (136-145) mmol/L Potassium (3.5-5.1) mmol/L Chloride (98-107) mmol/L Carbon Dioxide (21-32) mmol/L Anion Gap (3-11) BUN (6-23) mg/dl Creatinine (0.6-1.4) mg/dl Est Cr Clr Drug Dosing ml/min Est GFR ( Amer) ml/min Est GFR (Non-Af Amer) ml/min BUN/Creatinine Ratio (10-20) Glucose (70-99(Fasting)) mg/dl Calcium (8.5-10.1) mg/dl Magnesium (1.7-2.4) mg/dl Total Bilirubin (0.2-1.0) mg/dl AST (13-39) U/L ALT (7-52) U/L Alkaline Phosphatase (34-104) U/L Troponin I High Sens (0-20) pg/ml Total Protein (6.0-8.3) gm/dl Albumin (3.4-5.0) gm/dl Globulin (2.5-4.0) gm/dl Albumin/Globulin Ratio (0.9-2) Lipase (11-82) U/L Urine Color Yellow Urine Appearance Clear (Clear) Urine pH 7.0 (4.5-7.5) Ur Specific [place] 1.006 (1.000-1.030) Urine Protein Negative (Negative) Urine Glucose (UA) Negative (Negative) Urine Ketones Negative (Negative) Urine Blood Negative (Negative) Urine Nitrite Negative (Negative) Urine Bilirubin Negative (Negative) Urine Urobilinogen Negative (Negative) Ur Leukocyte Esterase Negative (Negative) Nasal Screen MRSA (PCR) (Negative) Ethyl Alcohol mg/dL 89.4 H (<10.0) mg/dl SARS-CoV-2, RNA, NAAT NEGATIVE (NEGATIVE) 04/14/22 04/14/22 04/14/22 Range/Units 15:55 15:55 15:55 WBC (4.8-10.8) K/ul RBC (4.63-6.08) M/uL Hgb (14.0-18.0) g/dl Hct (40.1-51.0) % MCV (80.0-100.0) fL MCH (25.0-34.0) pg MCHC (32.0-36.0) g/dL RDW Std Deviation (36.4-46.3) fL RDW Coeff of Shanika (11.5-14.5) % Plt Count (130-400) K/uL MPV (9.4-12.4) fL Immature Gran % (Auto) % Neut % (Auto) % Lymph % (Auto) % Ida % (Auto) % Eos % (Auto) % Baso % (Auto) % Neut # (Auto) (1.4-6.5) K/uL Lymph # (Auto) (1.2-3.4) K/uL Ida # (Auto) (0.24-0.82) K/uL Eos # (Auto) (0-0.50) K/uL Baso # (Auto) (0-0.2) K/uL Immature Gran # (Auto) (0.00-0.02) K/uL Sodium 132 L (136-145) mmol/L Potassium 4.1 (3.5-5.1) mmol/L Chloride 96 L (98-107) mmol/L Carbon Dioxide 29 (21-32) mmol/L Anion Gap 7 (3-11) BUN 5 L (6-23) mg/dl Creatinine 0.55 L (0.6-1.4) mg/dl Est Cr Clr Drug Dosing 154.7 ml/min Est GFR ( Amer) 146.9 ml/min Est GFR (Non-Af Amer) 126.7 ml/min BUN/Creatinine Ratio 9.1 L (10-20) Glucose 97 (70-99(Fasting)) mg/dl Calcium 9.4 (8.5-10.1) mg/dl Magnesium 2.4 (1.7-2.4) mg/dl Total Bilirubin 0.5 (0.2-1.0) mg/dl AST 78 H (13-39) U/L ALT 56 H (7-52) U/L Alkaline Phosphatase 73 (34-104) U/L Troponin I High Sens 4.5 (0-20) pg/ml Total Protein 7.5 (6.0-8.3) gm/dl Albumin 4.6 (3.4-5.0) gm/dl Globulin 2.9 (2.5-4.0) gm/dl Albumin/Globulin Ratio 1.6 (0.9-2) Lipase 59 (11-82) U/L Urine Color Urine Appearance (Clear) Urine pH (4.5-7.5) Ur Specific [place] (1.000-1.030) Urine Protein (Negative) Urine Glucose (UA) (Negative) Urine Ketones (Negative) Urine Blood (Negative) Urine Nitrite (Negative) Urine Bilirubin (Negative) Urine Urobilinogen (Negative) Ur Leukocyte Esterase (Negative) Nasal Screen MRSA (PCR) (Negative) Ethyl Alcohol mg/dL 225.7 H (<10.0) mg/dl SARS-CoV-2, RNA, NAAT (NEGATIVE) 04/14/22 Range/Units 15:55 WBC 8.48 (4.8-10.8) K/ul RBC 3.88 L (4.63-6.08) M/uL Hgb 14.9 (14.0-18.0) g/dl Hct 40.4 (40.1-51.0) % MCV 104.1 H (80.0-100.0) fL MCH 38.4 H (25.0-34.0) pg MCHC 36.9 H (32.0-36.0) g/dL RDW Std Deviation 49.6 H (36.4-46.3) fL RDW Coeff of Shanika 12.9 (11.5-14.5) % Plt Count 206 (130-400) K/uL MPV 8.6 L (9.4-12.4) fL Immature Gran % (Auto) 0.4 % Neut % (Auto) 65.7 % Lymph % (Auto) 21.9 % Ida % (Auto) 10.1 % Eos % (Auto) 0.6 % Baso % (Auto) 1.3 % Neut # (Auto) 5.57 (1.4-6.5) K/uL Lymph # (Auto) 1.86 (1.2-3.4) K/uL Ida # (Auto) 0.86 H (0.24-0.82) K/uL Eos # (Auto) 0.05 (0-0.50) K/uL Baso # (Auto) 0.11 (0-0.2) K/uL Immature Gran # (Auto) 0.03 H (0.00-0.02) K/uL Sodium (136-145) mmol/L Potassium (3.5-5.1) mmol/L Chloride (98-107) mmol/L Carbon Dioxide (21-32) mmol/L Anion Gap (3-11) BUN (6-23) mg/dl Creatinine (0.6-1.4) mg/dl Est Cr Clr Drug Dosing ml/min Est GFR ( Amer) ml/min Est GFR (Non-Af Amer) ml/min BUN/Creatinine Ratio (10-20) Glucose (70-99(Fasting)) mg/dl Calcium (8.5-10.1) mg/dl Magnesium (1.7-2.4) mg/dl Total Bilirubin (0.2-1.0) mg/dl AST (13-39) U/L ALT (7-52) U/L Alkaline Phosphatase (34-104) U/L Troponin I High Sens (0-20) pg/ml Total Protein (6.0-8.3) gm/dl Albumin (3.4-5.0) gm/dl Globulin (2.5-4.0) gm/dl Albumin/Globulin Ratio (0.9-2) Lipase (11-82) U/L Urine Color Urine Appearance (Clear) Urine pH (4.5-7.5) Ur Specific [place] (1.000-1.030) Urine Protein (Negative) Urine Glucose (UA) (Negative) Urine Ketones (Negative) Urine Blood (Negative) Urine Nitrite (Negative) Urine Bilirubin (Negative) Urine Urobilinogen (Negative) Ur Leukocyte Esterase (Negative) Nasal Screen MRSA (PCR) (Negative) Ethyl Alcohol mg/dL (<10.0) mg/dl SARS-CoV-2, RNA, NAAT (NEGATIVE) Medications Administered Current Inpatient Medications Acetaminophen (Acetaminophen 325 Mg Tab) 650 mg PO Q4H PRN PRN Reason: pain/fever Stop: 05/14/22 23:11 Folic Acid (Folic Acid 1 Mg Tab) 1 mg PO QAM [facility] Stop: 05/14/22 23:11 Last Admin: 04/14/22 23:29 Dose: 1 mg Gabapentin (Gabapentin 600 Mg Tab) 600 mg PO Q6H [facility] Stop: 04/15/22 12:01 Last Admin: 04/15/22 05:01 Dose: 600 mg Gabapentin (Gabapentin 600 Mg Tab) 600 mg PO Q8H [facility] Stop: 04/16/22 12:01 Gabapentin (Gabapentin 600 Mg Tab) 600 mg PO Q12H [facility] Stop: 04/17/22 12:01 Gabapentin (Gabapentin 600 Mg Tab) 600 mg PO Q24H [facility] Stop: 04/18/22 12:01 Lorazepam (Lorazepam 1 Mg Tab) 1 mg PO UD PRN; Protocol PRN Reason: EtOH Withdrawal AWSS Score 6,7 Stop: 05/14/22 23:11 Last Admin: 04/15/22 05:01 Dose: 1 mg Lorazepam (Lorazepam 1 Mg Tab) 3 mg PO ONCE PRN; Protocol PRN Reason: EtOH Withdrawal AWSS Score 10 & above Lorazepam (Lorazepam 1 Mg Tab) 2 mg PO UD PRN; Protocol PRN Reason: EtOH Withdrawal AWSS Score 8,9 Stop: 05/14/22 23:11 Miscellaneous (Remove Nicoderm Patch) 1 each N/A Q24H [facility] Stop: 05/15/22 20:58 Nicotine (Nicotine 21 Mg/24 Hr Tdsy) 21 mg TD Q24H [facility] Stop: 05/14/22 20:59 Last Admin: 04/14/22 21:07 Dose: 21 mg Thiamine HCl (Thiamine Hcl 100 Mg Tab) 100 mg PO QAM [facility] Stop: 05/14/22 23:11 Last Admin: 04/14/22 23:28 Dose: 100 mg
[2022-04-15] MEDS: FOLIC ACID 1 MG TAB PO SCH (08:37)
[2022-04-15] MEDS: THIAMINE HCL 100 MG TAB PO SCH (08:37)
[2022-04-15] MEDS ORDERED: Ativan IV Alcohol Withdrawal--Active Protocol IV PRN (09:54)
[2022-04-15] MEDS ORDERED: cloNIDine HCL 0.1 MG TAB PO PRN (09:54)
[2022-04-15] MEDS ORDERED: LORazepam 2 MG/1 ML VIAL IV PRN ×3 (09:54)
[2022-04-15] MEDS: AMOXICILLIN/CLAVULANATE 875 MG TAB PO SCH ×2 (10:38→16:15)
--- NOTE | 2022-04-15 12:49 | Electrocardiogram Report ---
Test Reason : Blood Pressure : / mmHG Vent. Rate : 082 BPM Atrial Rate : 082 BPM P-R Int : 142 ms QRS Dur : 072 ms QT Int : 346 ms P-R-T Axes : 054 031 042 degrees QTc Int : 404 ms Normal sinus rhythm Minimal voltage criteria for LVH, may be normal variant ST elevation, consider early repolarization Borderline ECG No previous ECGs available Confirmed by Antoni Cohen ([id number]) on 04/15/2022 12:49:41 PM Referred By: Confirmed By:Bola Cohen
[2022-04-15] MEDS: NICOTINE 21 MG/24 HR TDSY TD SCH (20:05)
[2022-04-16] MEDS: GABAPENTIN 600 MG TAB PO SCH ×3 (04:40→23:51)
[2022-04-16 05:18] LABS: Hematocrit (blood only) 41.7 % (40.1-51.0); Hemoglobin 14.7 g/dl (14.0-18.0); Mean Corpuscular Hemoglobin 38.2 pg (25.0-34.0); Mean Corpuscular Hgb Conc 35.3 g/dL (32.0-36.0); Mean Corpuscular Volume 108.3 fL (80.0-100.0); Mean Platelet Volume 9.2 fL (9.4-12.4); Platelet Count 169 K/uL (130-400); RDW Coefficient of Variation 12.9 % (11.5-14.5); RDW Standard Deviation 51.5 fL (36.4-46.3); Red Blood Count 3.85 M/uL (4.63-6.08); White Blood Count 5.59 K/ul (4.8-10.8)
[2022-04-16 05:44] LABS: BUN Creatinine Ratio 13.2 (10-20); Calcium 8.7 mg/dl (8.5-10.1); Creatinine Clr Calc Pharmacy 157.5 ml/min; Est GFR (African American) 149.1 ml/min; Est GFR (Non-African American) 128.7 ml/min; Magnesium 2.5 mg/dl (1.7-2.4); Phosphorus 3.6 mg/dl (2.5-4.9); Potassium 4.1 mmol/L (3.5-5.1)
[2022-04-16] MEDS: LORazepam 1 MG TAB PO PRN ×5 (06:42→20:11)
[2022-04-16] MEDS: AMOXICILLIN/CLAVULANATE 875 MG TAB PO SCH ×2 (09:00→17:18)
[2022-04-16] MEDS: FOLIC ACID 1 MG TAB PO SCH (09:00)
[2022-04-16] MEDS: THIAMINE HCL 100 MG TAB PO SCH (09:01)
--- NOTE | 2022-04-16 10:32 | Hospitalist Progress Note ---
Date of Service April 16, 2022 Assessment & Plan (1) Alcohol withdrawal: Plan: Admitted to telemetry Patient presenting from home with request for alcohol detox. Patient reports drinking at least 15 beers/day. Give banana bag in ED, started p.o. folic acid and thiamine - will cont. Alcohol withdrawal protocol with gabapentin and as needed Ativan Patient expresses wishes to attend inpatient rehab after hospitalization Currently sleepy, but able to be awoken easily and patient is answering appropriately, cooperative. Dental infection -Left-sided facial swelling -Patient reports that he has been having swelling on and off for some time, denies any pain, he is not concerned -Patient has very poor dentition, history of dental infection -Started on Augmentin on admission, will continue DVT ppx - SCDs Admission and Anticipated Discharge Date Admission Date: April 14, 2022 Subjective Patient seen for alcoholism, alcohol withdrawal, interested in going to inpatient alcohol rehab Currently laying in bed, in no acute distress He is sleepy but able to be awoken easily, he is answering questions appropriately Denies any fevers chills chest pain shortness of breath, abdominal pain, nausea vomiting + on and off sweats and some tremors + facial swelling, secondary to poor dentition, he says swelling comes and goes and he does not have any pain. Patient is not concerned about this. Review of Systems Review of Systems: All systems reviewed & are unremarkable except as noted in Subjective Physical Exam Physical Exam: Constitutional:L WD/WN, vitals as a ryne Eyes: PERRL, EOMI, conju nctivae normal, an icteric sclerae ENMT: + poor dentition Respiratory: normal respiratory effort, lungs emmett ar to auscultation Cardiovascular:L Rate/Rhythm: regul ar rhythm Vessels: normal peripheral pulses Extremiti es: no edema Gastrointestinal ( Abdomen): normal bowel sound s, soft, nontender , no hepatosplenom egaly Musculoskeletal: moves extremities Skin: no rashes, warm an d dry Neurologic: PERRL, EOMI, no fa ce palsy, no dysar thria, moves extre mities Motor/Sens ory: + tremor Psychiatric: A+Ox3, euthymic af fect Results & Data Results & Data ([facility]) Vital Signs (Past 12 Hours) Vital Signs Temp Pulse Pulse Resp BP Pulse Ox O2 Del Method 04/16/22 07:35 36.6 C 75 16 147/98 H 95 Room Air 04/16/22 03:04 36.7 C 80 16 153/92 H 96 Room Air 04/16/22 00:00 65 04/15/22 22:37 36.7 C 90 20 187/121 H 97 Room Air Laboratory Results 04/16/22 04/16/22 Range/Units 04:24 04:24 WBC 5.59 (4.8-10.8) K/ul RBC 3.85 L (4.63-6.08) M/uL Hgb 14.7 (14.0-18.0) g/dl Hct 41.7 (40.1-51.0) % MCV 108.3 H (80.0-100.0) fL MCH 38.2 H (25.0-34.0) pg MCHC 35.3 (32.0-36.0) g/dL RDW Std Deviation 51.5 H (36.4-46.3) fL RDW Coeff of Shanika 12.9 (11.5-14.5) % Plt Count 169 (130-400) K/uL MPV 9.2 L (9.4-12.4) fL Sodium 135 L (136-145) mmol/L Potassium 4.1 (3.5-5.1) mmol/L Chloride 103 (98-107) mmol/L Carbon Dioxide 26 (21-32) mmol/L Anion Gap 6 (3-11) BUN 7 (6-23) mg/dl Creatinine 0.53 L (0.6-1.4) mg/dl Est Cr Clr Drug Dosing 157.5 ml/min Est GFR ( Amer) 149.1 ml/min Est GFR (Non-Af Amer) 128.7 ml/min BUN/Creatinine Ratio 13.2 (10-20) Glucose 110 H (70-99(Fasting)) mg/dl Calcium 8.7 (8.5-10.1) mg/dl Phosphorus 3.6 (2.5-4.9) mg/dl Magnesium 2.5 H (1.7-2.4) mg/dl Medications Administered Current Inpatient Medications Acetaminophen (Acetaminophen 325 Mg Tab) 650 mg PO Q4H PRN PRN Reason: pain/fever Stop: 05/14/22 23:11 Amoxicillin/Clavulanate Potassium (Amoxicillin/Clavulanate 875 Mg Tab) 1 tab PO BIDM [facility] Stop: 04/22/22 09:59 Last Admin: 04/16/22 09:00 Dose: 1 tab Clonidine HCl (Clonidine Hcl 0.1 Mg Tab) 0.1 mg PO Q4H PRN PRN Reason: Hypertension Stop: 05/15/22 09:53 Last Admin: 04/15/22 22:40 Dose: 0.1 mg Folic Acid (Folic Acid 1 Mg Tab) 1 mg PO QAM [facility] Stop: 05/14/22 23:11 Last Admin: 04/16/22 09:00 Dose: 1 mg Gabapentin (Gabapentin 600 Mg Tab) 600 mg PO Q8H [facility] Stop: 04/16/22 12:01 Last Admin: 04/16/22 04:40 Dose: 600 mg Gabapentin (Gabapentin 600 Mg Tab) 600 mg PO Q12H [facility] Stop: 04/17/22 12:01 Gabapentin (Gabapentin 600 Mg Tab) 600 mg PO Q24H [facility] Stop: 04/18/22 12:01 Lorazepam (Lorazepam 1 Mg Tab) 1 mg PO UD PRN; Protocol PRN Reason: EtOH Withdrawal AWSS Score 6,7 Stop: 05/14/22 23:11 Last Admin: 04/16/22 06:42 Dose: 1 mg Lorazepam (Lorazepam 1 Mg Tab) 3 mg PO ONCE PRN; Protocol PRN Reason: EtOH Withdrawal AWSS Score 10 & above Lorazepam (Lorazepam 1 Mg Tab) 2 mg PO UD PRN; Protocol PRN Reason: EtOH Withdrawal AWSS Score 8,9 Stop: 05/14/22 23:11 Last Admin: 04/16/22 09:01 Dose: 2 mg Lorazepam (Lorazepam 2 Mg/1 Ml Vial) 1 mg IV UD PRN; Protocol PRN Reason: EtOH Withdrawal AWSS Score 6,7 Stop: 05/15/22 09:53 Lorazepam (Lorazepam 2 Mg/1 Ml Vial) 2 mg IV UD PRN; Protocol PRN Reason: EtOH Withdrawal AWSS Score 8,9 Stop: 05/15/22 09:53 Last Admin: 04/15/22 22:41 Dose: 2 mg Lorazepam (Lorazepam 2 Mg/1 Ml Vial) 3 mg IV ONCE PRN; Protocol PRN Reason: EtOH Withdrawal AWSS Score 10+ Miscellaneous (Remove Nicoderm Patch) 1 each N/A Q24H ELSY Stop: 05/15/22 20:58 Last Admin: 04/15/22 20:05 Dose: 1 each Miscellaneous (Ativan Iv Alcohol Withdrawal--Active Protocol) 1 each IV UD PRN; Protocol PRN Reason: EtoH Withdrawal AWSS 6,7,8,9,10+ Stop: 05/15/22 09:53 Nicotine (Nicotine 21 Mg/24 Hr Tdsy) 21 mg TD Q24H [facility] Stop: 05/14/22 20:59 Last Admin: 04/15/22 20:05 Dose: 21 mg Thiamine HCl (Thiamine Hcl 100 Mg Tab) 100 mg PO QAM ELSY Stop: 05/14/22 23:11 Last Admin: 04/16/22 09:01 Dose: 100 mg
[2022-04-16] MEDS: NICOTINE 21 MG/24 HR TDSY TD SCH (20:11)
[2022-04-17 06:52] LABS: Hematocrit (blood only) 44.8 % (40.1-51.0); Mean Corpuscular Hemoglobin 38.5 pg (25.0-34.0); Mean Corpuscular Hgb Conc 35.7 g/dL (32.0-36.0); Mean Corpuscular Volume 107.7 fL (80.0-100.0); Mean Platelet Volume 9.6 fL (9.4-12.4); Platelet Count 186 K/uL (130-400); RDW Coefficient of Variation 12.6 % (11.5-14.5); RDW Standard Deviation 50.7 fL (36.4-46.3); Red Blood Count 4.16 M/uL (4.63-6.08); White Blood Count 6.33 K/ul (4.8-10.8)
[2022-04-17 07:12] LABS: Anion Gap 6 (3-11); BUN Creatinine Ratio 13.7 (10-20); Blood Urea Nitrogen 7 mg/dl (6-23); Calcium 9.2 mg/dl (8.5-10.1); Carbon Dioxide 25 mmol/L (21-32); Chloride 105 mmol/L (98-107); Creatinine Clr Calc Pharmacy 163.7 ml/min; Est GFR (African American) > 150.0 ml/min; Est GFR (Non-African American) 130.7 ml/min; Glucose 117 mg/dl (70-99(Fasting)); Magnesium 2.3 mg/dl (1.7-2.4); Potassium 4.7 mmol/L (3.5-5.1); Sodium 136 mmol/L (136-145)
[2022-04-17] MEDS: THIAMINE HCL 100 MG TAB PO SCH (08:11)
[2022-04-17] MEDS: AMOXICILLIN/CLAVULANATE 875 MG TAB PO SCH ×2 (08:11→17:57)
[2022-04-17] MEDS: FOLIC ACID 1 MG TAB PO SCH (08:11)
--- NOTE | 2022-04-17 08:35 | Hospitalist Progress Note ---
Date of Service April 17, 2022 Assessment & Plan (1) Alcohol withdrawal: Plan: Admitted to telemetry Patient presenting from home with request for alcohol detox. Patient reports drinking at least 15 beers/day. Give banana bag in ED, started p.o. folic acid and thiamine - will cont. Alcohol withdrawal protocol with gabapentin and as needed Ativan Patient expresses wishes to attend inpatient rehab after hospitalization patient is answering appropriately, cooperative. Dental infection -Left-sided facial swelling -Patient reports that he has been having swelling on and off for some time, denies any pain -Patient has very poor dentition, history of dental infection, saw Dr. Desir before -Started on Augmentin on admission, will continue - consult Dr. Desir DVT ppx - SCDs Admission and Anticipated Discharge Date Admission Date: April 14, 2022 Subjective Patient seen for alcoholism, alcohol withdrawal, interested in going to inpatient alcohol rehab Currently laying in bed, in no acute distress He is answering questions appropriately, cooperative Denies any fevers chills chest pain shortness of breath, abdominal pain, nausea vomiting + on and off sweats and some tremors + facial swelling, secondary to poor dentition, he says swelling comes and goes and he does not have any pain Review of Systems Review of Systems: All systems reviewed & are unremarkable except as noted in Subjective Physical Exam Physical Exam: Constitutional:L WD/WN, vitals as a ryne Eyes: PERRL, EOMI, conju nctivae normal, an icteric sclerae ENMT: + poor dentition + left facial swell ing Respiratory: normal respiratory effort, lungs emmett ar to auscultation Cardiovascular:L Rate/Rhythm: regul ar rhythm Vessels: normal peripheral pulses Extremiti es: no edema Gastrointestinal ( Abdomen): normal bowel sound s, soft, nontender , no hepatosplenom egaly Musculoskeletal: moves extremities Skin: no rashes, warm an d dry Neurologic: PERRL, EOMI, no fa ce palsy, no dysar thria, moves extre mities Motor/Sens ory: + minimal elma mor Psychiatric: A+Ox3, euthymic af fect Results & Data Results & Data ([facility]) Vital Signs (Past 12 Hours) Vital Signs Temp Pulse Pulse Resp BP Pulse Ox O2 Del Method 04/17/22 08:01 36.4 C L 71 16 154/104 H 99 Room Air 04/17/22 02:49 36.2 C L 71 18 150/92 H 98 Room Air 04/17/22 00:00 36.8 C 77 16 161/107 H 99 Room Air 04/16/22 22:41 36.9 C 68 16 147/91 H 100 Room Air 04/16/22 22:40 63 Laboratory Results 04/17/22 04/17/22 Range/Units 05:43 05:43 WBC 6.33 (4.8-10.8) K/ul RBC 4.16 L (4.63-6.08) M/uL Hgb 16.0 (14.0-18.0) g/dl Hct 44.8 (40.1-51.0) % MCV 107.7 H (80.0-100.0) fL MCH 38.5 H (25.0-34.0) pg MCHC 35.7 (32.0-36.0) g/dL RDW Std Deviation 50.7 H (36.4-46.3) fL RDW Coeff of Shanika 12.6 (11.5-14.5) % Plt Count 186 (130-400) K/uL MPV 9.6 (9.4-12.4) fL Sodium 136 (136-145) mmol/L Potassium 4.7 (3.5-5.1) mmol/L Chloride 105 (98-107) mmol/L Carbon Dioxide 25 (21-32) mmol/L Anion Gap 6 (3-11) BUN 7 (6-23) mg/dl Creatinine 0.51 L (0.6-1.4) mg/dl Est Cr Clr Drug Dosing 163.7 ml/min Est GFR ( Amer) > 150.0 ml/min Est GFR (Non-Af Amer) 130.7 ml/min BUN/Creatinine Ratio 13.7 (10-20) Glucose 117 H (70-99(Fasting)) mg/dl Calcium 9.2 (8.5-10.1) mg/dl Phosphorus 4.0 (2.5-4.9) mg/dl Magnesium 2.3 (1.7-2.4) mg/dl Medications Administered Current Inpatient Medications Acetaminophen (Acetaminophen 325 Mg Tab) 650 mg PO Q4H PRN PRN Reason: pain/fever Stop: 05/14/22 23:11 Amoxicillin/Clavulanate Potassium (Amoxicillin/Clavulanate 875 Mg Tab) 1 tab PO BIDM [facility] Stop: 04/22/22 09:59 Last Admin: 04/17/22 08:11 Dose: 1 tab Clonidine HCl (Clonidine Hcl 0.1 Mg Tab) 0.1 mg PO Q4H PRN PRN Reason: Hypertension Stop: 05/15/22 09:53 Last Admin: 04/15/22 22:40 Dose: 0.1 mg Folic Acid (Folic Acid 1 Mg Tab) 1 mg PO QAM [facility] Stop: 05/14/22 23:11 Last Admin: 04/17/22 08:11 Dose: 1 mg Gabapentin (Gabapentin 600 Mg Tab) 600 mg PO Q12H [facility] Stop: 04/17/22 12:01 Last Admin: 04/16/22 23:51 Dose: 600 mg Gabapentin (Gabapentin 600 Mg Tab) 600 mg PO Q24H [facility] Stop: 04/18/22 12:01 Lorazepam (Lorazepam 1 Mg Tab) 1 mg PO UD PRN; Protocol PRN Reason: EtOH Withdrawal AWSS Score 6,7 Stop: 05/14/22 23:11 Last Admin: 04/16/22 20:11 Dose: 1 mg Lorazepam (Lorazepam 1 Mg Tab) 3 mg PO ONCE PRN; Protocol PRN Reason: EtOH Withdrawal AWSS Score 10 & above Lorazepam (Lorazepam 1 Mg Tab) 2 mg PO UD PRN; Protocol PRN Reason: EtOH Withdrawal AWSS Score 8,9 Stop: 05/14/22 23:11 Last Admin: 04/16/22 17:22 Dose: 2 mg Lorazepam (Lorazepam 2 Mg/1 Ml Vial) 1 mg IV UD PRN; Protocol PRN Reason: EtOH Withdrawal AWSS Score 6,7 Stop: 05/15/22 09:53 Lorazepam (Lorazepam 2 Mg/1 Ml Vial) 2 mg IV UD PRN; Protocol PRN Reason: EtOH Withdrawal AWSS Score 8,9 Stop: 05/15/22 09:53 Last Admin: 04/15/22 22:41 Dose: 2 mg Lorazepam (Lorazepam 2 Mg/1 Ml Vial) 3 mg IV ONCE PRN; Protocol PRN Reason: EtOH Withdrawal AWSS Score 10+ Miscellaneous (Remove Nicoderm Patch) 1 each N/A Q24H [facility] Stop: 05/15/22 20:58 Last Admin: 04/16/22 20:11 Dose: 1 each Nicotine (Nicotine 21 Mg/24 Hr Tdsy) 21 mg TD Q24H [facility] Stop: 05/14/22 20:59 Last Admin: 04/16/22 20:11 Dose: 21 mg Thiamine HCl (Thiamine Hcl 100 Mg Tab) 100 mg PO QAM [facility] Stop: 05/14/22 23:11 Last Admin: 04/17/22 08:11 Dose: 100 mg
--- NOTE | 2022-04-17 10:43 | Oral/Maxillofacial Consult ---
Date of Consultation April 17, 2022 History of Present Illness Attending Physician: Gage Carmona MD History of Present Illness Oral Maxillofacial Surgery Exam Present Complaint: Grossly fractured to gum line upper left molars This is a very chronic condition. Damon will need to remaining teeth removed once he has completed his rehab program. I do not see any acute issues that need urgent dental surgery. Symptoms have been ongoing for a while. Oral Exam: Finding- tender gingival tissue with deep pocket formation.Teeth are in an abnormal position and removal is clinical indicated of all remaining teeth Imaging: I suggested that Damon get a dental Panorex X Rays for treatment planing and future denture construction Soft tissue: floor of the mouth, tongue, hard/soft palate, posterior pharyngeal area all with in normal limits, no pathology or abnormal findings noted. No lesions noted that require follow up or Bx. No acute swelling, bleeding, infection. Slight tenderness upper left check--this has been an issue on and off for a while Suggest oral antibiotics for immediate therapy Oral Care: Overall oral care isvery poor TMJ exam: No pop, clicking, pain, good ROM, No history of TMJ injury or dysfunction Periodontal exam: There is evidence of severe chronic periodontal pathology extraction of all teeth required. Head/Neck exam: Neck is supple, FROM, Able to extend and flex neck w/o difficulty, no masses, no abnormalities, no airway issues. Treatment Plan: Given his present condition getting him into an inpatient Rehab facility would be in his best interest MAXIMILIANO Upon completion of the Rehab he will need to find the services of a dentist for routine dental X- Rays and extractions of all the remaining teeth followed by denture construction I reviewed the treatment plan and consent with the patient Understanding was expressed-that Rehab is needed. Upon completion of Rehab--getting involved with a dentist for X Rays and extractions will be needed. Time was given for questions regarding the future surgery, dentures, risks and post op care. The following teeth are decayed and fractured and removal is indicated of all remaining teeth Risks discussed: Bleeding,Pain,swelling,infection, dry socket, delayed healing, nerve injury to face,lips,tongue,chin area which could be permanent (rare). TMJ, jaw stiffness, change in bite (rare), ear pain (referred). Sinus problems like fistula or infection. Need to leave a small root fragment in place to avoid injury to nerve or sinus. OK for Rehab Dental issues are chronic in nature and can wait until he completes the inpatient Rehab. Allergies Allergy/AdvReac Type Severity Reaction Status Date / Time No Known Allergies Allergy Verified 04/14/22 20:10 Home Medications Medication Instructions Recorded Confirmed Type multivitamin 1 tab PO DAILY 04/14/22 04/14/22 History Patient History Medical History (Updated 04/15/22 @ 00:14 by Leonel Guevara DO) No significant past medical history Surgical History Hx of tonsillectomy Family History Father COPD (chronic obstructive pulmonary disease) Social History Smoking Status: Current every day smoker Tobacco Type: Cigarettes Cigarettes Per Day: 1 pack a day; Hx Alcohol Use: Yes Alcohol type: beer and hard liquor Hx Substance Use: No Preferred Language: Lebanese Communication Ability: Effective Visual Impairment: No 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 Beliefs That Will Affect Care: None marital status: Current Living Situation: Spouse current occupational status: employed Other Information That Helps Us Care for You: No Feels Safe at Home: Yes Safety Concerns: Feels Safe At This Time Assistive Devices: None Results & Data ([facility] [place]) Vital Signs (Past 12 Hours) Vital Signs Temp Pulse Pulse Resp BP Pulse Ox O2 Del Method 04/17/22 06:00 73 04/17/22 08:01 36.4 C L 71 16 154/104 H 99 Room Air 04/17/22 02:49 36.2 C L 71 18 150/92 H 98 Room Air 04/17/22 00:00 36.8 C 77 16 161/107 H 99 Room Air 04/16/22 22:41 36.9 C 68 16 147/91 H 100 Room Air 04/16/22 22:40 63 PG Care Time/CCT Total # of Minutes Spent Total Time Spent with Patient: Total time spent is greater than 50% in coordination of care (as documented) at patient's floor/unit and/or counseling patient: Coding Level of Care Code 86383 Inpt Consult Level 2
[2022-04-17] MEDS: GABAPENTIN 600 MG TAB PO SCH (12:23)
[2022-04-17] MEDS ORDERED: NICOTINE POLACRILEX 2 MG GUM MT PRN (16:27)
[2022-04-17] MEDS: NICOTINE 21 MG/24 HR TDSY TD SCH (20:43)
[2022-04-18 08:09] LABS: Hematocrit (blood only) 45.9 % (40.1-51.0); Hemoglobin 15.9 g/dl (14.0-18.0); Mean Corpuscular Hemoglobin 37.9 pg (25.0-34.0); Mean Corpuscular Hgb Conc 34.6 g/dL (32.0-36.0); Mean Corpuscular Volume 109.3 fL (80.0-100.0); Mean Platelet Volume 8.9 fL (9.4-12.4); Platelet Count 223 K/uL (130-400); RDW Coefficient of Variation 12.5 % (11.5-14.5); RDW Standard Deviation 50.3 fL (36.4-46.3); White Blood Count 6.83 K/ul (4.8-10.8)
[2022-04-18 08:33] LABS: Calcium 9.8 mg/dl (8.5-10.1); Creatinine Clr Calc Pharmacy 143.9 ml/min; Est GFR (African American) 143.7 ml/min; Magnesium 2.1 mg/dl (1.7-2.4); Potassium 4.4 mmol/L (3.5-5.1)
[2022-04-18] MEDS: FOLIC ACID 1 MG TAB PO SCH (08:36)
[2022-04-18] MEDS: THIAMINE HCL 100 MG TAB PO SCH (08:36)
[2022-04-18] MEDS: AMOXICILLIN/CLAVULANATE 875 MG TAB PO SCH (08:36)
[2022-04-18] MEDS ORDERED: GABAPENTIN 600 MG TAB PO SCH (12:00)
--- NOTE | 2022-04-18 13:03 | Discharge Summary ---
Date of Service April 18, 2022 Admission HPI Per Admitting Provider 42-year-old male without significant past medical history who presents to the ED for alcohol detox request. Patient reports that he drinks at least 15 beers/day. Also drinks some occasional hard liquor. Patient reports he has been drinking this amount for the past 2 years. Patient reports experiencing tremors when he does not drink alcohol. Patient reports he was previously employed at [employer] until about 2 weeks ago when he was found drinking alcohol on the job. Patient reports his last drink was around 1030 this morning. He is currently feeling tremulous, nauseous, diaphoretic. Patient denies chest pain and palpitations. No other recent illnesses, fevers, chills. He denies abdominal pain, vomiting, diarrhea. No urinary symptoms. In the ED, patient is hemodynamically stable. Labs are unremarkable. He was given IVF and Ativan 2 mg IV. Admission Exam Per Admitting Provider Constitutional: WD/WN, vitals as above Eyes: PERRL, conjunctivae normal, anicteric sclerae ENMT: external ear and nose normal, oropharynx normal Respiratory: normal respiratory effort, lungs clear to auscultation Cardiovascular: Rate/Rhythm: regular rhythm and + tachycardic Vessels: normal peripheral pulses Extremities: no edema Gastrointestinal (Abdomen): normal bowel sounds, soft, nontender, no hepatosplenomegaly Musculoskeletal: no cyanosis or clubbing, extremities motor strength 5/5 Skin: no rashes, warm and dry Neurologic: PERRL, EOMI, accommodation nl, no face palsy, no dysarthria Motor/Sensory: + tremor Psychiatric: A+Ox3, euthymic affect Principal Diagnosis Alcohol withdrawal Tobacco abuse Transaminitis Dental infection Discharge Exam General- No acute distress Head- atraumatic Eyes- PERRL, EOMI, No nystagmus ENT- oropharynx clear Neck- supple, no JVD Lungs- clear to auscultation Heart- regular rhythm; no murmur Abdomen- normal bowel sounds, soft, nontender Extremities- no calf tenderness Neuro- alert, oriented x 3; PERRL, EOMI; no facial palsy; no dysarthria, Mild tremor Skin- warm & dry Discharge Data Allergies Allergy/AdvReac Type Severity Reaction Status Date / Time No Known Allergies Allergy Verified 04/14/22 20:10 Consultations 04/14/22 20:14 ED Decision to Admit Stat 04/17/22 10:02 Consult Oromaxillofacial Surgery Routine Ordered Studies Laboratory Results WBC 6.83 K/ul (4.8-10.8) 04/18/22 07:48 RBC 4.20 M/uL (4.63-6.08) L 04/18/22 07:48 Hgb 15.9 g/dl (14.0-18.0) 04/18/22 07:48 Hct 45.9 % (40.1-51.0) 04/18/22 07:48 MCV 109.3 fL (80.0-100.0) H 04/18/22 07:48 MCH 37.9 pg (25.0-34.0) H 04/18/22 07:48 MCHC 34.6 g/dL (32.0-36.0) 04/18/22 07:48 RDW Std Deviation 50.3 fL (36.4-46.3) H 04/18/22 07:48 RDW Coeff of Shanika 12.5 % (11.5-14.5) 04/18/22 07:48 Plt Count 223 K/uL (130-400) 04/18/22 07:48 MPV 8.9 fL (9.4-12.4) L 04/18/22 07:48 Immature Gran % (Auto) 0.4 % 04/14/22 15:55 Neut % (Auto) 65.7 % 04/14/22 15:55 Lymph % (Auto) 21.9 % 04/14/22 15:55 [place] % (Auto) 10.1 % 04/14/22 15:55 Eos % (Auto) 0.6 % 04/14/22 15:55 Baso % (Auto) 1.3 % 04/14/22 15:55 Neut # (Auto) 5.57 K/uL (1.4-6.5) 04/14/22 15:55 Lymph # (Auto) 1.86 K/uL (1.2-3.4) 04/14/22 15:55 [place] # (Auto) 0.86 K/uL (0.24-0.82) H 04/14/22 15:55 Eos # (Auto) 0.05 K/uL (0-0.50) 04/14/22 15:55 Baso # (Auto) 0.11 K/uL (0-0.2) 04/14/22 15:55 Immature Gran # (Auto) 0.03 K/uL (0.00-0.02) H 04/14/22 15:55 Sodium 134 mmol/L (136-145) L 04/18/22 07:48 Potassium 4.4 mmol/L (3.5-5.1) 04/18/22 07:48 Chloride 100 mmol/L (98-107) 04/18/22 07:48 Carbon Dioxide 27 mmol/L (21-32) 04/18/22 07:48 Anion Gap 7 (3-11) 04/18/22 07:48 BUN 11 mg/dl (6-23) 04/18/22 07:48 Creatinine 0.58 mg/dl (0.6-1.4) L 04/18/22 07:48 Est Cr Clr Drug Dosing 143.9 ml/min 04/18/22 07:48 Est GFR ( Amer) 143.7 ml/min 04/18/22 07:48 Est GFR (Non-Af Amer) 124.0 ml/min 04/18/22 07:48 BUN/Creatinine Ratio 19.0 (10-20) 04/18/22 07:48 Glucose 104 mg/dl (70-99(Fasting)) H 04/18/22 07:48 Calcium 9.8 mg/dl (8.5-10.1) 04/18/22 07:48 Phosphorus 4.0 mg/dl (2.5-4.9) 04/17/22 05:43 Magnesium 2.1 mg/dl (1.7-2.4) 04/18/22 07:48 Total Bilirubin 0.5 mg/dl (0.2-1.0) 04/14/22 15:55 AST 78 U/L (13-39) H 04/14/22 15:55 ALT 56 U/L (7-52) H 04/14/22 15:55 Alkaline Phosphatase 73 U/L (34-104) 04/14/22 15:55 Troponin I High Sens 4.5 pg/ml (0-20) 04/14/22 15:55 Total Protein 7.5 gm/dl (6.0-8.3) 04/14/22 15:55 Albumin 4.6 gm/dl (3.4-5.0) 04/14/22 15:55 Globulin 2.9 gm/dl (2.5-4.0) 04/14/22 15:55 Albumin/Globulin Ratio 1.6 (0.9-2) 04/14/22 15:55 Lipase 59 U/L (11-82) 04/14/22 15:55 Urine Color Yellow 04/14/22 18:39 Urine Appearance Clear (Clear) 04/14/22 18:39 Urine pH 7.0 (4.5-7.5) 04/14/22 18:39 Ur Specific [place] 1.006 (1.000-1.030) 04/14/22 18:39 Urine Protein Negative (Negative) 04/14/22 18:39 Urine Glucose (UA) Negative (Negative) 04/14/22 18:39 Urine Ketones Negative (Negative) 04/14/22 18:39 Urine Blood Negative (Negative) 04/14/22 18:39 Urine Nitrite Negative (Negative) 04/14/22 18:39 Urine Bilirubin Negative (Negative) 04/14/22 18:39 Urine Urobilinogen Negative (Negative) 04/14/22 18:39 Ur Leukocyte Esterase Negative (Negative) 04/14/22 18:39 Nasal Screen MRSA (PCR) Negative (Negative) 04/14/22 22:15 Ethyl Alcohol mg/dL 89.4 mg/dl (<10.0) H 04/14/22 20:40 SARS-CoV-2, RNA, NAAT NEGATIVE (NEGATIVE) 04/14/22 19:30 Impressions Chest X-Ray 04/14/22 19:13 SINGLE VIEW CHEST CLINICAL HISTORY: Atypical chest pain. FINDINGS: An AP, portable, upright chest radiograph is obtained. No prior studies are available for comparison at the time of dictation. The cardiomediastinal silhouette is unremarkable. The lungs and pleural spaces are clear. No pneumothorax is seen. The bony thorax is grossly intact. Bilateral nipple piercings are in place. IMPRESSION: No active disease in the chest. ACT 112: Negative or not required by law. Electronically signed by: Costa Ríos M.D. 04/14/2022 7:30 PM Hospital Course (1) Alcohol withdrawal: Patient presenting from home with request for alcohol detox. Patient reported drinking at least 15 beers/day. Give banana bag in ED, started p.o. folic acid and thiamine - will cont. Alcohol withdrawal protocol with gabapentin and as needed Ativan Patient expresses wishes to attend inpatient rehab after hospitalization No sign of alcohol withdrawal or DT Pt is accepted to [facility] for inpatient alcohol rehab He said that he is anxious because there is only 1 bed available that he needs to discharge now before missing the bed Counseling on alcohol cessation Transaminitis Mostly related to alcohol abuse Check LFT in 1 to 2 weeks to monitor liver function Tobacco abuse Counseling on tobacco cessation Dental infection Left-sided facial swelling Patient reports that he has been having swelling on and off for some time, denies any pain Patient has very poor dentition, history of dental infection Oral maxillofacial surgery consulted- no indication foracute issues that need urgent dental surgery. Continue PO Augmentin BID to complete a today 10 days course Follow up with your dentist for routine dental care, X- Rays and extractions of all the remaining teeth followed by denture construction DVT ppx - SCDs Total Time Total Time Spent Total Time Spent (In Minutes): 35 minutes Discharge Plan Discharge Items Patient Disposition: Drug & Alcohol Rehab Reason For Visit: ETOH WITHDRAWAL Discharge Diagnosis: Alcohol withdrawal Tobacco abuse Transaminitis Dental infection Activity: Resume your previous activity Non-emergency contact: Primary Care Provider Call non-emergency contact if: you have any medication questions, your symptoms worsen and your temperature is above 101 Follow-up/Referrals: Juan Luis Blair DO [Primary Care Provider] - Diet: Regular Addtl Attending Provider Instructions: Follow up with your primary care provider once discharge from rehab Follow up with your dentist for routine dental care, X- Rays and extractions of all the remaining teeth followed by denture construction Counseling on alcohol and tobacco cessation Check LFT in 2 weeks to monitor your Liver enzymes Complete the course of the antibiotic Seek medical attention if your symptoms worsening Pending Studies at Discharge: No Stand-Alone Forms: My [facility] Skilled Items Patient informed of condition?: Yes DNR: No Discharge Level of Care: Acute rehab Communicable Disease: No Discharge Prognosis: Stable Lines: None Urinary Catheter: No Medications and DC Order Prescriptions: New amoxicillin-pot clavulanate 875-125 mg Tablet 1 tab PO BIDM Qty: 14 0RF folic acid 1 mg Tablet 1 mg PO QAM Qty: 30 0RF thiamine HCl (vitamin B1) 100 mg Tablet 100 mg PO QAM Qty: 30 0RF Continued multivitamin Tablet 1 tab PO DAILY Discharge Orders: Discharge Order (Routine); Ordered 04/18/22 Ordered By: Blanca Akins Admission Data Admit Date/Time: 04/14/22 20:23 Attending Provider: Blanca Akins Admit Provider: Prateek Morales Primary Care Provider: Juan Luis Blair Other Providers: Prateek Morales ; Vitaly Desir Andrea F.
== END 2022-04-18 13:28 | disposition home or self-care (01) | DRG 897 ==
LOC: ED 13:24 → 1E 20:23 → SUATTDRO 20:23 → 1E 21:47 → 2S 04-16 11:24

== ENCOUNTER 2022-12-29 19:25 | Inpatient (IN) ==
[2022-12-29 22:35] LABS: Alanine Aminotransferase 17 U/L (7-52); Albumin Globulin Ratio 1.2 (0.9-2); Albumin Level 3.4 gm/dl (3.4-5.0); Alkaline Phosphatase 134 U/L (34-104); Anion Gap 10 (3-11); BUN Creatinine Ratio 8.2 (10-20); Bilirubin,Total 0.6 mg/dl (0.2-1.0); Blood Urea Nitrogen 4 mg/dl (6-23); Calcium 8.3 mg/dl (8.6-10.3); Carbon Dioxide 28 mmol/L (21-32); Chloride 98 mmol/L (98-107); Est GFR (African American) > 150.0 ml/min; Est GFR (Non-African American) 132.9 ml/min; Globulin 2.9 gm/dl (2.5-4.0); Glucose 92 mg/dl (70-99(Fasting)); Lipase 41 U/L (11-82); Sodium 136 mmol/L (136-145); Total Protein 6.3 gm/dl (6.0-8.3)
[2022-12-29 22:51] LABS: Basophils # (auto) 0.07 K/uL (0.00-0.20); Basophils % (auto) 0.9 %; Eosinophils # (auto) 0.02 K/uL (0.00-0.50); Eosinophils % (auto) 0.2 %; Hematocrit (blood only) 38.7 % (42.0-52.0); Hemoglobin 14.3 g/dl (14.0-18.0); Immature Granulocytes # (auto) 0.04 K/uL (0.01-0.20); Immature Granulocytes % (auto) 0.5 %; Lymphocytes # (auto) 1.56 K/uL (1.20-3.40); Lymphocytes % (auto) 19.2 %; Mean Corpuscular Hemoglobin 38.1 pg (25.0-34.0); Mean Corpuscular Volume 103.2 fL (80.0-100.0); Mean Platelet Volume 9.6 fL (9.4-12.4); Monocytes # (auto) 0.68 K/uL (0.11-0.59); Monocytes % (auto) 8.4 %; Neutrophils # (auto) 5.74 K/uL (1.40-6.50); Neutrophils % (auto) 70.8 %; Platelet Count 158 K/uL (130-400); Platelet Estimate Decreased (Normal); RDW Coefficient of Variation 14.2 % (11.5-14.5); RDW Standard Deviation 53.1 fL (36.4-46.3); Red Blood Count 3.75 M/uL (4.70-6.10); White Blood Count 8.11 K/ul (4.8-10.8)
[2022-12-29] MEDS ORDERED: FAMOTIDINE 20MG IV PUSH 20 MG/5 ML SYR IV STA (23:05)
[2022-12-29] MEDS ORDERED: PANTOprazole 80 MG in DEXTROSE 5% 100 ML IV STA (23:05)
[2022-12-29] MEDS ORDERED: SODIUM CHLORIDE 0.9% 1,000 ML IV ONE (23:05)
[2022-12-29] MEDS ORDERED: PANTOprazole 80 MG in DEXTROSE 5% 100 ML IV ONE (23:05)
[2022-12-29] MEDS ORDERED: ONDANSETRON INJ 2 MG/ML 2 ML VIAL IV STA (23:05)
[2022-12-29] MEDS ORDERED: PANTOprazole 40 MG in DEXTROSE 5% 100 ML IV SCH (23:30)
[2022-12-29 23:35] LABS: Potassium 2.9 mmol/L (3.5-5.1)
[2022-12-29] MEDS ORDERED: NICOTINE 21 MG/24 HR TDSY TD STA (23:43)
[2022-12-29] MEDS ORDERED: POTASSIUM CHLORIDE 20 MEQ/15 ML UDC PO STA (23:47)
[2022-12-29] MEDS ORDERED: MULTI-VITAMIN INFUSION 10 ML, THIAMINE HCL 100 MG, FOLIC ACID 1 MG in SODIUM CHLORIDE 0... IV ONE (23:48)
[2022-12-30 00:24] LABS: Troponin I High Sensitivity 6.7 pg/ml (0-20)
[2022-12-30] MEDS ORDERED: OPTIRAY 320 100ml IV ONE (00:34)
[2022-12-30] MEDS: POTASSIUM CHLORIDE / WTR 10 MEQ/100 ML PLCT IV SCH ×6 (00:48→23:38)
[2022-12-30 00:56] LABS: Partial Thromboplastin Time 27.1 Seconds (21.0-31.0); Prothrombin Time 10.6 Seconds (9.0-12.0)
--- NOTE | 2022-12-30 02:32 | CT Scan Report ---
Exam(s): CT ABDOMEN + PELVIS With Contrast IV Amt: 91 ML OPTIRAY 320 EXAM: CT Abdomen and Pelvis With Intravenous Contrast CLINICAL HISTORY: Reason for exam: gi bleed, etoj abuse. TECHNIQUE: Axial computed tomography images of the abdomen and pelvis with intravenous contrast. CTDI is 9.08 mGy and DLP is 443.14 mGy-cm. Automated exposure control was utilized for the study. A dose lowering technique was utilized adhering to the principles of ALARA. CONTRAST: Patient received 91 ML OPTIRAY 320 of IV contrast COMPARISON: No relevant prior studies available. FINDINGS: Lung bases: Unremarkable. No mass. No consolidation. ABDOMEN: Liver: Fatty infiltration of the liver. Gallbladder and bile ducts: Unremarkable. No calcified stones. No ductal dilation. Pancreas: Unremarkable. No mass. No ductal dilation. Spleen: Unremarkable. No splenomegaly. Adrenals: Unremarkable. No mass. Kidneys and ureters: Unremarkable. No solid mass. No hydronephrosis. Stomach and bowel: Diffuse wall thickening of the colon, rectum, and terminal ileum most concerning for inflammatory bowel disease. No obstruction. PELVIS: Appendix: No findings to suggest acute appendicitis. Bladder: Unremarkable. No mass. Reproductive: Unremarkable as visualized. ABDOMEN and PELVIS: Intraperitoneal space: Unremarkable. No free air. No significant fluid collection. Bones/joints: No acute fracture. No dislocation. Soft tissues: Unremarkable. Vasculature: Unremarkable. No abdominal aortic aneurysm. Lymph nodes: Unremarkable. No enlarged lymph nodes. IMPRESSION: Diffuse wall thickening of the colon, rectum, and terminal ileum most concerning for inflammatory bowel disease. Electronically signed by: Hieu Hua M.D. 12/30/22 02:31 AM
--- NOTE | 2022-12-30 02:59 | Emergency Department Note ---
History of Present Illness General Chief complaint: GI Assessment Stated complaint: GI ASSESSMENT Time Seen by Provider: 12/29/22 23:00 History of Present Illness Maximum Pain Intensity: 5 This 42-year-old male who is an alcoholic presents to the ER for dark black stool for the past few days steadily getting worse. He also complains of abdominal pain. Patient denies chest pain, dyspnea, blood in the stool, hematemesis. Home Medications Medication Instructions Recorded Confirmed Type multivitamin 1 tab PO DAILY 04/14/22 12/29/22 History hydroxyzine pamoate 25 mg capsule 25 - 50 mg PO DAILY PRN Anxiety 10/25/22 12/29/22 History dicyclomine 10 mg capsule 10 mg PO QID PRN Abdominal 12/29/22 12/29/22 History Discomfort sertraline 50 mg tablet 50 mg PO QAM 12/29/22 12/29/22 History Allergies Allergy/AdvReac Type Severity Reaction Status Date / Time No Known Allergies Allergy Verified 11/03/22 21:27 Past Med/Surg History Medical History (Updated 12/30/22 @ 03:01 by Yulissa Haider PA-C) Alcohol withdrawal Alcoholic intoxication No significant past medical history Transaminitis Surgical History Hx of tonsillectomy Family History Father COPD (chronic obstructive pulmonary disease) Social History Smoking Status: Current every day smoker Tobacco Type: Cigarettes Cigarettes Per Day: 1 pack a day; Do You Dip or Chew Tobacco: No; Hx Alcohol Use: Yes Alcohol type: beer and hard liquor Hx Substance Use: No Preferred Language: Honduran Communication Ability: Effective Visual Impairment: No Limitations Team Driver Required: No Beliefs That Will Affect Care: None marital status: Current Living Situation: Spouse current occupational status: employed Feels Safe at Home: Yes Assistive Devices: None Review of Systems A total of 10 systems reviewed and were otherwise negative Physical Exam Vital Signs Vital Signs - 24 hr 12/29/22 19:41 12/29/22 22:39 12/29/22 22:39 Temperature 36.6 C Temperature Source Temporal Artery Scan Pulse Rate 105 H 72 Pulse Rate [Apical] 73 Pulse Rhythm Regular Pulse Strength Normal Respiratory Rate 18 20 Respiratory Effort / Characteristics Non-Labored Spontaneous Respiratory Depth Normal Normal Respiratory Pattern Regular Blood Pressure 123/82 Blood Pressure [Right Arm] 126/80 Blood Pressure Mean 95 Blood Pressure Mean [Right Arm] 95 Blood Pressure Position Sitting Pulse Oximetry 100 95 Oxygen Delivery Method Room Air Room Air Sepsis Recent Fever Within 48 Hours No Sepsis New/Unexplained Change in Mental Status N/A Sepsis Action Taken by Nursing No Action Required 12/30/22 00:57 Temperature Temperature Source Pulse Rate Pulse Rate [Apical] 70 Pulse Rhythm Pulse Strength Respiratory Rate 18 Respiratory Effort / Characteristics Non-Labored Spontaneous Respiratory Depth Normal Respiratory Pattern Blood Pressure Blood Pressure [Right Arm] 124/78 Blood Pressure Mean Blood Pressure Mean [Right Arm] 93 Blood Pressure Position Pulse Oximetry 96 Oxygen Delivery Method Room Air Sepsis Recent Fever Within 48 Hours Sepsis New/Unexplained Change in Mental Status Sepsis Action Taken by Nursing VITALS: Vitals are noted on the nurse's note and reviewed by myself. Vital signs stable. GENERAL: White male ambulating without difficulties with EtOH odor, in no acute distress, nondiaphoretic, well-developed well-nourished. SKIN: The skin was without rashes, erythema, edema, or bruising. There is no tenting of the skin. Capillary reflex less than 2 seconds. HEAD: Normocephalic atraumatic. EARS: External auditory canals clear, EYES: Pupils equal round and reactive to light and accommodation. Conjunctivae without injection, sclerae without icterus. Extraocular movements intact. NOSE: Patent, turbinates without inflammation or discharge. MOUTH: Mucous membranes moist. Pharynx without erythema or exudate. Uvula midline. Airway patent. Tongue does not deviate. NECK: Supple without nuchal rigidity. No lymphadenopathy. No thyromegaly. Cervical spine is nontender. No JVD. HEART: Regular rate and rhythm LUNGS: Clear to auscultation bilaterally without wheezes, rales or rhonchi. No retractions or accessory muscle use. ABDOMEN: Positive bowel sounds x 4. Normal tympanic percussion. Soft, tender mid abdomen, without masses or organomegaly. Barfield sign negative. No guarding or rebound tenderness. No CVA tenderness Rectal exam: Black stool guaiac positive. MUSCULOSKELETAL: No muscle atrophy, erythema, or edema noted. NEURO: Patient was alert and oriented to person place and time. Normal sensation to light and sharp touch. No focal neurological deficits. Course Administered Medications Discontinued Medications Pantoprazole Sodium 80 mg/ (Dextrose) 120 mls @ 480 mls/hr IV ONE STA Stop: 12/29/22 23:19 Last Admin: 12/30/22 00:56 Dose: Not Given Documented By: CHRISTA Pantoprazole Sodium 80 mg/ (Dextrose) 120 mls @ 400 mls/hr IV NOW ONE Stop: 12/29/22 23:22 Last Infusion: 12/30/22 00:56 Dose: 0 mls/hr Documented By: Admin: 12/29/22 23:51 Dose: 400 mls/hr Documented By: CHRISTA Sodium Chloride (Nss) 1,000 mls @ 999 mls/hr IV .Q1H1M ONE Stop: 12/30/22 00:05 Last Infusion: 12/30/22 02:01 Dose: 0 mls/hr Documented By: Admin: 12/30/22 00:48 Dose: 999 mls/hr Documented By: CHRISTA Famotidine (Pepcid 20mg Iv Push) 20 mg in 5 mls @ 2.5 mls/min IV NOW STA Stop: 12/29/22 23:06 Last Admin: 12/29/22 23:51 Dose: 2.5 mls/min Documented By: CHRISTA Potassium Chloride (K Shankar / Wtr) 10 meq in 100 mls @ 100 mls/hr IV Q1H ELSY Stop: 12/30/22 01:44 Last Admin: 12/30/22 02:01 Dose: 100 mls/hr Documented By: Infusion: 12/30/22 02:00 Dose: 0 mls/hr Documented By: Admin: 12/30/22 00:48 Dose: 100 mls/hr Documented By: CHRISTA Ioversol (Optiray 320 100ml) 100 ml IV ONCE ONE Stop: 12/30/22 00:35 Last Admin: 12/30/22 00:34 Dose: 91 ml Documented By: SCOOBY Nicotine (Nicotine 21 Mg/24 Hr Tdsy) 21 mg TD NOW STA Stop: 12/29/22 23:44 Last Admin: 12/29/22 23:51 Dose: 21 mg Documented By: CHRISTA Ondansetron HCl (Ondansetron Inj 2 Mg/Ml 2 Ml Vial) 4 mg IV NOW STA Stop: 12/29/22 23:06 Last Admin: 12/29/22 23:51 Dose: 4 mg Documented By: CHRISTA Potassium Chloride (Potassium Chloride 20 Meq/15 Ml Udc) 40 meq PO NOW STA Stop: 12/29/22 23:48 Last Admin: 12/30/22 00:48 Dose: 40 meq Documented By: CHRISTA Medical Decision Making Medical Records Attestation: I reviewed the patient's medical records. Home Medications Current Medication List: was personally reviewed by me Laboratory Data Attestation: I reviewed the patient's lab results. 12/29/22 21:45 12/29/22 23:00 Lab Results 12/29/22 12/29/22 12/29/22 Range/Units 21:45 21:45 23:00 WBC 8.11 (4.8-10.8) K/ul RBC 3.75 L (4.70-6.10) M/uL Hgb 14.3 (14.0-18.0) g/dl Hct 38.7 L (42.0-52.0) % MCV 103.2 H (80.0-100.0) fL MCH 38.1 H (25.0-34.0) pg MCHC 37.0 H (32.0-36.0) g/dL RDW Std Deviation 53.1 H (36.4-46.3) fL RDW Coeff of Shanika 14.2 (11.5-14.5) % Plt Count 158 (130-400) K/uL MPV 9.6 (9.4-12.4) fL Immature Gran % (Auto) 0.5 % Neut % (Auto) 70.8 % Lymph % (Auto) 19.2 % [place] % (Auto) 8.4 % Eos % (Auto) 0.2 % Baso % (Auto) 0.9 % Neut # (Auto) 5.74 (1.40-6.50) K/uL Lymph # (Auto) 1.56 (1.20-3.40) K/uL [place] # (Auto) 0.68 H (0.11-0.59) K/uL Eos # (Auto) 0.02 (0.00-0.50) K/uL Baso # (Auto) 0.07 (0.00-0.20) K/uL Immature Gran # (Auto) 0.04 (0.01-0.20) K/uL Platelet Estimate Decreased L (Normal) PT (9.0-12.0) Seconds INR (0.9-1.1) APTT (21.0-31.0) Seconds PTT Ratio Sodium 136 (136-145) mmol/L Potassium TNP 2.9 L Chloride 98 (98-107) mmol/L Carbon Dioxide 28 (21-32) mmol/L Anion Gap 10 (3-11) BUN 4 L (6-23) mg/dl Creatinine 0.49 L (0.6-1.4) mg/dl Est Cr Clr Drug Dosing 160.0 ml/min Est GFR ( Amer) > 150.0 ml/min Est GFR (Non-Af Amer) 132.9 ml/min BUN/Creatinine Ratio 8.2 L (10-20) Glucose 92 (70-99(Fasting)) mg/dl Calcium 8.3 L (8.6-10.3) mg/dl Magnesium 2.0 (1.7-2.4) mg/dl Total Bilirubin 0.6 (0.2-1.0) mg/dl AST TNP 32 ALT 17 (7-52) U/L Alkaline Phosphatase 134 H (34-104) U/L Troponin I High Sens 6.7 (0-20) pg/ml Total Protein 6.3 (6.0-8.3) gm/dl Albumin 3.4 (3.4-5.0) gm/dl Globulin 2.9 (2.5-4.0) gm/dl Albumin/Globulin Ratio 1.2 (0.9-2) Lipase 41 (11-82) U/L Ethyl Alcohol mg/dL (<10.0) mg/dl Blood Type Antibody Screen 12/30/22 12/30/22 12/30/22 Range/Units 00:00 00:00 00:02 WBC (4.8-10.8) K/ul RBC (4.70-6.10) M/uL Hgb (14.0-18.0) g/dl Hct (42.0-52.0) % MCV (80.0-100.0) fL MCH (25.0-34.0) pg MCHC (32.0-36.0) g/dL RDW Std Deviation (36.4-46.3) fL RDW Coeff of Shanika (11.5-14.5) % Plt Count (130-400) K/uL MPV (9.4-12.4) fL Immature Gran % (Auto) % Neut % (Auto) % Lymph % (Auto) % [place] % (Auto) % Eos % (Auto) % Baso % (Auto) % Neut # (Auto) (1.40-6.50) K/uL Lymph # (Auto) (1.20-3.40) K/uL [place] # (Auto) (0.11-0.59) K/uL Eos # (Auto) (0.00-0.50) K/uL Baso # (Auto) (0.00-0.20) K/uL Immature Gran # (Auto) (0.01-0.20) K/uL Platelet Estimate (Normal) PT 10.6 (9.0-12.0) Seconds INR 1.0 (0.9-1.1) APTT 27.1 (21.0-31.0) Seconds PTT Ratio 1.0 Sodium (136-145) mmol/L Potassium Chloride (98-107) mmol/L Carbon Dioxide (21-32) mmol/L Anion Gap (3-11) BUN (6-23) mg/dl Creatinine (0.6-1.4) mg/dl Est Cr Clr Drug Dosing ml/min Est GFR ( Amer) ml/min Est GFR (Non-Af Amer) ml/min BUN/Creatinine Ratio (10-20) Glucose (70-99(Fasting)) mg/dl Calcium (8.6-10.3) mg/dl Magnesium (1.7-2.4) mg/dl Total Bilirubin (0.2-1.0) mg/dl AST ALT (7-52) U/L Alkaline Phosphatase (34-104) U/L Troponin I High Sens (0-20) pg/ml Total Protein (6.0-8.3) gm/dl Albumin (3.4-5.0) gm/dl Globulin (2.5-4.0) gm/dl Albumin/Globulin Ratio (0.9-2) Lipase (11-82) U/L Ethyl Alcohol mg/dL 285.0 H (<10.0) mg/dl Blood Type A Positive Antibody Screen NEGATIVE Imaging Data Attestation: I personally reviewed and interpreted this imaging study as follows: Radiologist's Impression: Abdomen/Pelvis CT 12/29/22 23:05 Exam(s): CT ABDOMEN + PELVIS With Contrast IV Amt: 91 ML OPTIRAY 320 EXAM: CT Abdomen and Pelvis With Intravenous Contrast CLINICAL HISTORY: Reason for exam: gi bleed, etoj abuse. TECHNIQUE: Axial computed tomography images of the abdomen and pelvis with intravenous contrast. CTDI is 9.08 mGy and DLP is 443.14 mGy-cm. Automated exposure control was utilized for the study. A dose lowering technique was utilized adhering to the principles of ALARA. CONTRAST: Patient received 91 ML OPTIRAY 320 of IV contrast COMPARISON: No relevant prior studies available. FINDINGS: Lung bases: Unremarkable. No mass. No consolidation. ABDOMEN: Liver: Fatty infiltration of the liver. Gallbladder and bile ducts: Unremarkable. No calcified stones. No ductal dilation. Pancreas: Unremarkable. No mass. No ductal dilation. Spleen: Unremarkable. No splenomegaly. Adrenals: Unremarkable. No mass. Kidneys and ureters: Unremarkable. No solid mass. No hydronephrosis. Stomach and bowel: Diffuse wall thickening of the colon, rectum, and terminal ileum most concerning for inflammatory bowel disease. No obstruction. PELVIS: Appendix: No findings to suggest acute appendicitis. Bladder: Unremarkable. No mass. Reproductive: Unremarkable as visualized. ABDOMEN and PELVIS: Intraperitoneal space: Unremarkable. No free air. No significant fluid collection. Bones/joints: No acute fracture. No dislocation. Soft tissues: Unremarkable. Vasculature: Unremarkable. No abdominal aortic aneurysm. Lymph nodes: Unremarkable. No enlarged lymph nodes. IMPRESSION: Diffuse wall thickening of the colon, rectum, and terminal ileum most concerning for inflammatory bowel disease. Electronically signed by: Hieu Hua M.D. 12/30/22 02:31 AM MDM Narrative Prior records/ancillary studies reviewed. Triage Nursing notes reviewed. Additional history obtained from the nursing. The patient's history was concerning for possible gastrointestinal bleeding. Differential diagnosis: Etiologies such as diverticulosis, AVM, coagulopathy, colitis, inflammatory bowel disease, malignancy, Jesika-Barnes tear, esophagitis, peptic ulcer disease, variceal bleed, gastritis, epistaxis, fissure, hemorrhoids, as well as others were entertained. Physical exam: As above. The patients vital signs were stable. ER treatment provided: An order was placed for continuous cardiac monitoring. The monitor shows a rate of 60-100 with a sinus rhythm per my interpretation. Protonix, Pepcid, Zofran, IV fluids On reassessment the patient felt better. Diagnostics interpreted by me: ECG: Ordered for GI bleed Normal sinus, normal intervals, no acute ST-T wave changes. Impression normal sinus rhythm independently interpreted by myself I think arrhythmia is unlikely. EKG shows normal sinus rhythm with no interval abnormalities such as QT prolongation or WPW. There are no findings to suggest Brugada syndrome. Cardiac monitoring in the emergency department reveals no tachycardic or bradycardic dysrhythmia. Hypertrophic cardiomyopathy was considered but there are no clear historical elements pointing toward this. EKG is not suggestive. The QRS voltage is not extremely large and there are no suggestive Q waves. The labs Independently Interpreted by myself revealed alcohol 285 Stable H&H Hypokalemia this is replaced as above Imaging studies: Abdominal pelvis CT concerning for Diffuse wall thickening of the colon, rectum, and terminal ileum most concerning for inflammatory bowel disease. Chest x-ray with no acute consolidation, pneumothorax or free air per my independent interpretation Consultation: A consultation was placed with the hospitalist. The case was discussed and diagnostics were reviewed. The patient was evaluated in the ER for further treatment. This appears to be consistent with alcoholic GI bleeding. Patient was started on Protonix. He was medicated as above. He was hydrated as above. Labs and diagnostics are independently interpreted by myself. Radiology for the CAT scan. Medicine was consulted and the case was discussed. He will be admitted to the medical service for further evaluation and treatment. By the evaluation outlined above emergent etiologies such as esophageal perforation, coagulopathy, epistaxis, malignancy, as well as others were deemed relatively unlikely. The pt informed about the findings as listed above. All questions were answered and pleased with the treatment. The chart was completed utilizing [employer] voice recognition software. Grammatical errors, random word insertions, pronoun errors, and incomplete sentences are an occassional consequence of this system due to software limitations, ambient noise, and hardware issues. Any formal questions or concerns about the content, text, or information contained within the body of this dictation should be directly addressed to the physician janitorial assistant for clarification. Impression & Plan Acute GI bleeding, Acute alcoholism Discharge Plan Visit Data Chief Complaint: GI Assessment Stated Complaint: GI ASSESSMENT ED Provider: Costa Vargas ED Midlevel Provider: Yulissa Haider Discharge Problem: Acute GI bleeding, Acute alcoholism Patient Disposition: Admitted As Inpatient Condition: Fair Forms Stand Alone Forms: [facility] Prescriptions Prescriptions: No Action sertraline 50 mg tablet 50 mg PO QAM dicyclomine 10 mg capsule 10 mg PO QID PRN (Reason: Abdominal Discomfort) multivitamin Tablet 1 tab PO DAILY hydroxyzine pamoate 25 mg capsule 25 - 50 mg PO DAILY PRN (Reason: Anxiety) Referrals Referrals: Juan Luis Blair DO [Primary Care Provider] -
[2022-12-30] MEDS ORDERED: GABAPENTIN 600 MG TAB PO STA (03:22)
[2022-12-30] MEDS ORDERED: POTASSIUM CHLORIDE CRTAB 20 MEQ TABCR PO STA (03:22)
[2022-12-30] MEDS ORDERED: chlordiazePOXIDE HCl 25 MG CAP PO ONE (03:22)
[2022-12-30] MEDS ORDERED: LORazepam 2 MG/1 ML VIAL IV STA (03:22)
--- NOTE | 2022-12-30 03:23 | History & Physical Report ---
Date of Service December 30, 2022 Assessment & Plan (1) Abdominal pain: Plan: UGIB, history alcohol abuse Ileocolitis concerning for IBD on CT imaging Alcohol withdrawal, patient markedly tremulous at the ER Anxiety/mood disorder, recently started on sertraline Rx by PCP ongoing tobacco abuse Hypokalemia secondary to emesis/diarrhea Medical telemetry IV PPI N.p.o. until patient seen by GI for endoscopy Follow H&H, transfuse PRBC if hemoglobin less than 7 and or for symptomatic anemia DT precautions, ALBERT S Replace potassium Nicotine patch DVT prophylaxis. SCDs Re: GI bleed Full code Text document was generated using [employer] recognition software. It may contain grammatical or spelling errors. Kindly contact undersigned for clarification of any documentation item in question. History of Present Illness Chief Complaint: Worsening abdominal pain, melena Primary Care Provider: Juan Luis Blair DO History obtained from patient and records. Medical history significant for anxiety/mood disorder, ongoing tobacco/alcohol abuse. Last confinement March 2022 for alcohol withdrawal. Recent ER visit October 2022 for alcohol detox. Patient subsequently discharged home. Patient started drinking again after 2 weeks. 3 weeks ago, patient noted increased frequency of bowel movements (not diarrhea as per patient). No black/bloody stools. Mucoid/jellylike bowel movements. Achy lower abdominal pain, some weight loss. 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 Impression was diarrhea predominant IBS. Low FODMAP diet and alcohol avoidance recommended by PCP. Dicyclomine prescribed as needed for diarrhea. Sertraline also started for anxiety/mood disorder. Outpatient blood work and stool work-up recommended. Stool sample still needs to be submitted. Melanotic stool and worsening abdominal pain noted the last few days. Bilious emesis. No chest pain, no SOB. Outpatient GI referral for EGD contemplated by PCP's office. Patient consulted ER for worsening symptoms. IV Protonix infusion initiated at the ER. Medical History as above No prior endoscopies Surgical History : tonsillectomy/Adenoidectomy Family History : DM, lung cancer, heart disease, COPD; negative IBD as per patient Personal/Social history :1 pack daily, alcohol abuse, prior work as a commercial lines account manager Allergies Allergy/AdvReac Type Severity Reaction Status Date / Time No Known Allergies Allergy Verified 11/03/22 21:27 Home Medications Medication Instructions Recorded Confirmed Type multivitamin 1 tab PO DAILY 04/14/22 12/29/22 History hydroxyzine pamoate 25 mg capsule 25 - 50 mg PO DAILY PRN Anxiety 10/25/22 12/29/22 History dicyclomine 10 mg capsule 10 mg PO QID PRN Abdominal 12/29/22 12/29/22 History Discomfort sertraline 50 mg tablet 50 mg PO QAM 12/29/22 12/29/22 History Past Med/Surg History Medical History (Updated 12/30/22 @ 05:31 by Oneil Tanner MD) Alcohol withdrawal Alcoholic intoxication No significant past medical history Transaminitis Surgical History Hx of tonsillectomy Family History Father COPD (chronic obstructive pulmonary disease) Social History Smoking Status: Current every day smoker Tobacco Type: Cigarettes Cigarettes Per Day: 1 pack a day; Do You Dip or Chew Tobacco: No; Hx Alcohol Use: Yes Alcohol type: beer and hard liquor Hx Substance Use: No Preferred Language: Slovenian Communication Ability: Effective Visual Impairment: No Limitations Spinner Open End Required: No Beliefs That Will Affect Care: None marital status: Current Living Situation: Spouse current occupational status: employed Feels Safe at Home: Yes Assistive Devices: None Review of Systems Review of Systems: As per HPI, all other systems reviewed and negative Physical Exam Physical Exam: GENERAL: Slightly uncomfortable, tremulous, underweight, no respiratory distress SKIN: Normal color, warm HEENT: [place] palpebral conjunctivae, no ptosis, dry buccal mucosa NECK : Supple, no tenderness CHEST : CTA, no tenderness HEART : RRR, no obvious murmurs ABDOMEN: Some distention, central abdominal tenderness EXTREMITIES : No LE swelling/tenderness, no other conspicuous deformities noted NEUROLOGIC : Coherent, no facial asymmetry, tremulous, no other gross focality Results & Data Results & Data Vital Signs (Past 12 Hours) Vital Signs Temp Pulse Pulse Resp BP BP Pulse Ox 12/30/22 00:57 70 18 124/78 96 12/29/22 22:39 72 12/29/22 22:39 73 20 126/80 95 12/29/22 19:41 36.6 C 105 H 18 123/82 100 O2 Del Method 12/30/22 00:57 Room Air 12/29/22 22:39 12/29/22 22:39 Room Air 12/29/22 19:41 Room Air Laboratory Results Laboratory Results WBC 8.11 K/ul (4.8-10.8) 12/29/22 21:45 RBC 3.75 M/uL (4.70-6.10) L 12/29/22 21:45 Hgb 14.3 g/dl (14.0-18.0) 12/29/22 21:45 Hct 38.7 % (42.0-52.0) L 12/29/22 21:45 MCV 103.2 fL (80.0-100.0) H 12/29/22 21:45 MCH 38.1 pg (25.0-34.0) H 12/29/22 21:45 MCHC 37.0 g/dL (32.0-36.0) H 12/29/22 21:45 RDW Std Deviation 53.1 fL (36.4-46.3) H 12/29/22 21:45 RDW Coeff of Shanika 14.2 % (11.5-14.5) 12/29/22 21:45 Plt Count 158 K/uL (130-400) 12/29/22 21:45 MPV 9.6 fL (9.4-12.4) 12/29/22 21:45 Immature Gran % (Auto) 0.5 % 12/29/22 21:45 Neut % (Auto) 70.8 % 12/29/22 21:45 Lymph % (Auto) 19.2 % 12/29/22 21:45 [place] % (Auto) 8.4 % 12/29/22 21:45 Eos % (Auto) 0.2 % 12/29/22 21:45 Baso % (Auto) 0.9 % 12/29/22 21:45 Neut # (Auto) 5.74 K/uL (1.40-6.50) 12/29/22 21:45 Lymph # (Auto) 1.56 K/uL (1.20-3.40) 12/29/22 21:45 [place] # (Auto) 0.68 K/uL (0.11-0.59) H 12/29/22 21:45 Eos # (Auto) 0.02 K/uL (0.00-0.50) 12/29/22 21:45 Baso # (Auto) 0.07 K/uL (0.00-0.20) 12/29/22 21:45 Immature Gran # (Auto) 0.04 K/uL (0.01-0.20) 12/29/22 21:45 Platelet Estimate Decreased (Normal) L 12/29/22 21:45 PT 10.6 Seconds (9.0-12.0) 12/30/22 00:02 INR 1.0 (0.9-1.1) 12/30/22 00:02 APTT 27.1 Seconds (21.0-31.0) 12/30/22 00:02 PTT Ratio 1.0 12/30/22 00:02 Sodium 136 mmol/L (136-145) 12/29/22 21:45 Potassium 2.9 mmol/L (3.5-5.1) L 12/29/22 23:00 Chloride 98 mmol/L (98-107) 12/29/22 21:45 Carbon Dioxide 28 mmol/L (21-32) 12/29/22 21:45 Anion Gap 10 (3-11) 12/29/22 21:45 BUN 4 mg/dl (6-23) L 12/29/22 21:45 Creatinine 0.49 mg/dl (0.6-1.4) L 12/29/22 21:45 Est Cr Clr Drug Dosing 160.0 ml/min 12/29/22 21:45 Est GFR ( Amer) > 150.0 ml/min 12/29/22 21:45 Est GFR (Non-Af Amer) 132.9 ml/min 12/29/22 21:45 BUN/Creatinine Ratio 8.2 (10-20) L 12/29/22 21:45 Glucose 92 mg/dl (70-99(Fasting)) 12/29/22 21:45 Calcium 8.3 mg/dl (8.6-10.3) L 12/29/22 21:45 Magnesium 2.0 mg/dl (1.7-2.4) 12/29/22 21:45 Total Bilirubin 0.6 mg/dl (0.2-1.0) 12/29/22 21:45 AST 32 U/L (13-39) 12/29/22 23:00 ALT 17 U/L (7-52) 12/29/22 21:45 Alkaline Phosphatase 134 U/L (34-104) H 12/29/22 21:45 Troponin I High Sens 6.7 pg/ml (0-20) 12/29/22 21:45 Total Protein 6.3 gm/dl (6.0-8.3) 12/29/22 21:45 Albumin 3.4 gm/dl (3.4-5.0) 12/29/22 21:45 Globulin 2.9 gm/dl (2.5-4.0) 12/29/22 21:45 Albumin/Globulin Ratio 1.2 (0.9-2) 12/29/22 21:45 Lipase 41 U/L (11-82) 12/29/22 21:45 Ethyl Alcohol mg/dL 285.0 mg/dl (<10.0) H 12/30/22 00:00 Blood Type A Positive 12/30/22 00:00 Antibody Screen NEGATIVE 12/30/22 00:00 Impressions Abdomen/Pelvis CT 12/29/22 23:05 Exam(s): CT ABDOMEN + PELVIS With Contrast IV Amt: 91 ML OPTIRAY 320 EXAM: CT Abdomen and Pelvis With Intravenous Contrast CLINICAL HISTORY: Reason for exam: gi bleed, etoj abuse. TECHNIQUE: Axial computed tomography images of the abdomen and pelvis with intravenous contrast. CTDI is 9.08 mGy and DLP is 443.14 mGy-cm. Automated exposure control was utilized for the study. A dose lowering technique was utilized adhering to the principles of ALARA. CONTRAST: Patient received 91 ML OPTIRAY 320 of IV contrast COMPARISON: No relevant prior studies available. FINDINGS: Lung bases: Unremarkable. No mass. No consolidation. ABDOMEN: Liver: Fatty infiltration of the liver. Gallbladder and bile ducts: Unremarkable. No calcified stones. No ductal dilation. Pancreas: Unremarkable. No mass. No ductal dilation. Spleen: Unremarkable. No splenomegaly. Adrenals: Unremarkable. No mass. Kidneys and ureters: Unremarkable. No solid mass. No hydronephrosis. Stomach and bowel: Diffuse wall thickening of the colon, rectum, and terminal ileum most concerning for inflammatory bowel disease. No obstruction. PELVIS: Appendix: No findings to suggest acute appendicitis. Bladder: Unremarkable. No mass. Reproductive: Unremarkable as visualized. ABDOMEN and PELVIS: Intraperitoneal space: Unremarkable. No free air. No significant fluid collection. Bones/joints: No acute fracture. No dislocation. Soft tissues: Unremarkable. Vasculature: Unremarkable. No abdominal aortic aneurysm. Lymph nodes: Unremarkable. No enlarged lymph nodes. IMPRESSION: Diffuse wall thickening of the colon, rectum, and terminal ileum most concerning for inflammatory bowel disease. Electronically signed by: Hieu Hua M.D. 12/30/22 02:31 AM Diagnostic Findings EKG as per my interpretation : Rate 85, NSR, normal axis, no ischemia
[2022-12-30] MEDS ORDERED: LORazepam 2 MG/1 ML VIAL IV PRN ×3 (03:27)
[2022-12-30] MEDS ORDERED: Ativan IV Alcohol Withdrawal--Active Protocol IV PRN (03:27)
[2022-12-30] MEDS ORDERED: GABAPENTIN 1200MG ALCOHOL WITHDRAWAL LOAD PO STA (03:27)
[2022-12-30] MEDS ORDERED: oxyCODONE HCL IR 5 MG TAB (IMMEDIATE RELEASE) PO PRN (03:29)
[2022-12-30] MEDS ORDERED: PROMETHAZINE HCL 6.25 MG in SODIUM CHLORIDE 0.9% 50 ML IV PRN (03:29)
[2022-12-30] MEDS ORDERED: ACETAMINOPHEN 325 MG TAB PO PRN (03:29)
[2022-12-30] MEDS ORDERED: NSS + 20MEQ KCL 20 MEQ/1,000 ML BAG IV ONE (04:00)
[2022-12-30 04:28] LABS: Basophils # (auto) 0.07 K/uL (0.00-0.20); Basophils % (auto) 0.8 %; Eosinophils # (auto) 0.02 K/uL (0.00-0.50); Eosinophils % (auto) 0.2 %; Hematocrit (blood only) 32.5 % (42.0-52.0); Immature Granulocytes # (auto) 0.05 K/uL (0.01-0.20); Immature Granulocytes % (auto) 0.6 %; Lymphocytes # (auto) 1.17 K/uL (1.20-3.40); Lymphocytes % (auto) 13.4 %; Mean Corpuscular Hemoglobin 38.3 pg (25.0-34.0); Mean Corpuscular Hgb Conc 36.9 g/dL (32.0-36.0); Mean Corpuscular Volume 103.8 fL (80.0-100.0); Mean Platelet Volume 8.7 fL (9.4-12.4); Monocytes # (auto) 0.84 K/uL (0.11-0.59); Monocytes % (auto) 9.6 %; Neutrophils # (auto) 6.61 K/uL (1.40-6.50); Neutrophils % (auto) 75.4 %; Platelet Count 110 K/uL (130-400); RDW Coefficient of Variation 14.5 % (11.5-14.5); RDW Standard Deviation 53.5 fL (36.4-46.3); Red Blood Count 3.13 M/uL (4.70-6.10); White Blood Count 8.76 K/ul (4.8-10.8)
[2022-12-30 05:06] LABS: Adenovirus F 40/41 PCR Not Detected (NotDetected); Astrovirus PCR Not Detected (NotDetected); Campylobacter PCR Not Detected (NotDetected); Cryptosporidium PCR Not Detected (NotDetected); Cyclospora cayetanensis PCR Not Detected (NotDetected); Entamoeba histolytica PCR Not Detected (NotDetected); Enteroaggregative E.coli(EAEC) Not Detected (NotDetected); Enteropathogenic E.coli (EPEC) Not Detected (NotDetected); Enterotoxigenic E.coli (ETEC) Not Detected (NotDetected); Giardia lamblia PCR Not Detected (NotDetected); Norovirus GI/GII PCR Not Detected (NotDetected); Plesiomonas shigelloides PCR Not Detected (NotDetected); Rotavirus A PCR Not Detected (NotDetected); Salmonella PCR Not Detected (NotDetected); Sapovirus PCR Not Detected (NotDetected); Shiga-like Toxin E.coli (STEC) Not Detected (NotDetected); Shigella/Enteroinvasive E.coli Not Detected (NotDetected); Vibrio cholerae PCR Not Detected (NotDetected); Vibrio species PCR Not Detected (NotDetected); Yersinia enterocolitica PCR Not Detected (NotDetected)
[2022-12-30 06:11] LABS: Cdiff Antigen Positive; Cdiff Toxin A+B Negative Cdiff Toxin (Negative); Cdiff Toxin B Gene (2yr or >) Positive Cdiff Gene (Neg)
--- NOTE | 2022-12-30 06:59 | XRay Report ---
XR chest 1V portable CLINICAL HISTORY: gi bleed COMPARISON STUDY: Chest radiograph April 14, 2022. FINDINGS: Lung volumes are normal. Lungs are clear. There is no pneumothorax or pleural effusion. Car diac size is normal. Mediastinal contours are normal. There is no evidence for pulmonary edema. IMPRESSION: No acute cardiopulmonary findings. ACT 112: Negative or not required by law. Electronically signed by: Gavino Marc M.D. 12/30/2022 6:57 AM
--- NOTE | 2022-12-30 09:06 | Gastrointestinal Consultation ---
Date of Consultation December 30, 2022 Assessment & Plan (1) Abdominal pain: 42 year old male with ongoing ETOH abuse, 1 pint of liquid daily presenting with abd pain, diarrhea, dark stools. He is hemodynamically stable, CTAP concerning for colitis, c.diff gene positive but toxin negative. No acute indication for endoscopic evaluation May start with clear liquids, advance as tolerated Trend H&H Transfuse PRN Monitor and document GI output Agree with IV PPI BID x 48 hours then PO PPI BID x 1 month He will need OP EGD/Colonoscopy ETOH cessation was encouraged ETOH withdrawal protocol Thank you for allowing us to participate in the care of this patient. Please call with any acute changes, questions or concerns. Please see addendum below with additional recommendation from my supervising physician. (2) Acute alcoholism: Supervising Physician Co-Signing Physician Notes I performed a history and physical examination of the patient today, including specifically on physical exam - soft abdomen. I have discussed the patient's management with the advanced practitioner. Please refer to the nurse practitioner's note for the documented findings and plan of care. Seems intoxicated. Colitis on imaging, please obtain stool studies and give ABx if needed. No evidence of ongoing overt GI bleeding. OP E/C. Alcohol cessation. Recall GI if needed. History of Present Illness Reason for Consultation: UGI bleed Requesting Physician: Chandler Attending Physician: Booker Arteaga MD History of Present Illness 42 year old male with anxiety/mood disorder, ongoing tobacco/alcohol abuse who notes about 1 pint of ETOH use daily, last use yesterday who is admitted through the ED for abd pain, melena. GI was asked to evaluate - pt was seen and evaluated, chart reviewed. Notes that about 3/4 days ago he developed some upper GI discomfort and noted some looser and dark stools at that time. He denies any BRBPR. He denies any UGI bleeding, specificially no hematemesis or coffee ground emesis. No fever, chills, CP, SOB. Ongoing ETOH abuse, 1 pint daily Occasional NSAIDs HGB 12 BUN 4 C.diff gene positive ETOH level 285 CTAP 2022: Diffuse wall thickening of the colon, rectum, and terminal ileum mostconcerning for inflammatory bowel disease. Allergies Allergy/AdvReac Type Severity Reaction Status Date / Time No Known Allergies Allergy Verified 11/03/22 21:27 Home Medications Medication Instructions Recorded Confirmed Type multivitamin 1 tab PO DAILY 04/14/22 12/29/22 History hydroxyzine pamoate 25 mg capsule 25 - 50 mg PO DAILY PRN Anxiety 10/25/22 12/29/22 History dicyclomine 10 mg capsule 10 mg PO QID PRN Abdominal 12/29/22 12/29/22 History Discomfort sertraline 50 mg tablet 50 mg PO QAM 12/29/22 12/29/22 History Patient History Medical History (Updated 12/30/22 @ 05:31 by Oneil Tanner MD) Alcohol withdrawal Alcoholic intoxication No significant past medical history Transaminitis Surgical History Hx of tonsillectomy Family History Father COPD (chronic obstructive pulmonary disease) Social History Smoking Status: Current every day smoker Tobacco Type: Cigarettes Cigarettes Per Day: 1 pack a day; Do You Dip or Chew Tobacco: No; Hx Alcohol Use: Yes Alcohol type: beer and hard liquor Hx Substance Use: No Preferred Language: Georgian Communication Ability: Effective Visual Impairment: No Limitations [employer] Required: No Beliefs That Will Affect Care: None marital status: Current Living Situation: Spouse current occupational status: employed Feels Safe at Home: Yes Assistive Devices: None Review of Systems Review of Systems: All systems reviewed & are unremarkable except as noted in HPI & below Physical Exam Constitutional: WD/WN, vitals as above Respiratory: normal respiratory effort, lungs clear to auscultation Cardiovascular: Rate/Rhythm: regular rate and regular rhythm Gastrointestinal (Abdomen): normal bowel sounds, soft, nontender, no hepatosplenomegaly Skin: no rashes, warm and dry Results & Data Vital Signs (Past 12 Hours) Vital Signs Pulse Pulse Resp BP Pulse Ox O2 Del Method 12/30/22 05:53 84 16 114/61 94 Room Air 12/30/22 04:28 86 12/30/22 03:29 80 18 124/84 97 Room Air 12/30/22 00:57 70 18 124/78 96 Room Air 12/29/22 22:39 72 12/29/22 22:39 73 20 126/80 95 Room Air Laboratory Results 12/30/22 12/30/22 12/30/22 Range/Units 03:55 03:27 03:27 WBC 8.76 (4.8-10.8) K/ul RBC 3.13 L (4.70-6.10) M/uL Hgb 12.0 L (14.0-18.0) g/dl Hct 32.5 L (42.0-52.0) % MCV 103.8 H (80.0-100.0) fL MCH 38.3 H (25.0-34.0) pg MCHC 36.9 H (32.0-36.0) g/dL RDW Std Deviation 53.5 H (36.4-46.3) fL RDW Coeff of Shanika 14.5 (11.5-14.5) % Plt Count 110 L (130-400) K/uL MPV 8.7 L (9.4-12.4) fL Immature Gran % (Auto) 0.6 % Neut % (Auto) 75.4 % Lymph % (Auto) 13.4 % [place] % (Auto) 9.6 % Eos % (Auto) 0.2 % Baso % (Auto) 0.8 % Neut # (Auto) 6.61 H (1.40-6.50) K/uL Lymph # (Auto) 1.17 L (1.20-3.40) K/uL [place] # (Auto) 0.84 H (0.11-0.59) K/uL Eos # (Auto) 0.02 (0.00-0.50) K/uL Baso # (Auto) 0.07 (0.00-0.20) K/uL Immature Gran # (Auto) 0.05 (0.01-0.20) K/uL Platelet Estimate (Normal) PT (9.0-12.0) Seconds INR (0.9-1.1) APTT (21.0-31.0) Seconds PTT Ratio Sodium (136-145) mmol/L Potassium Chloride (98-107) mmol/L Carbon Dioxide (21-32) mmol/L Anion Gap (3-11) BUN (6-23) mg/dl Creatinine (0.6-1.4) mg/dl Est Cr Clr Drug Dosing ml/min Est GFR ( Amer) ml/min Est GFR (Non-Af Amer) ml/min BUN/Creatinine Ratio (10-20) Glucose (70-99(Fasting)) mg/dl Calcium (8.6-10.3) mg/dl Magnesium (1.7-2.4) mg/dl Total Bilirubin (0.2-1.0) mg/dl AST ALT (7-52) U/L Alkaline Phosphatase (34-104) U/L Troponin I High Sens (0-20) pg/ml Total Protein (6.0-8.3) gm/dl Albumin (3.4-5.0) gm/dl Globulin (2.5-4.0) gm/dl Albumin/Globulin Ratio (0.9-2) Lipase (11-82) U/L Stl C. cayetanensis PCR Not Detected (NotDetected) Stool Rotavirus A PCR Not Detected (NotDetected) Stl Adenov F 40/41 PCR Not Detected (NotDetected) Stool Astrovirus (PCR) Not Detected (NotDetected) Stool Campylobacter PCR Not Detected (NotDetected) Stl C. diff Tox B Gene Positive Cdiff Gene H (Neg) Stl C.difficile Tox A&B Negative Cdiff Toxin (Negative) Stool Cryptosporidium PCR Not Detected (NotDetected) Stl E.coli Shiga Tox PCR Not Detected (NotDetected) Stl Enterotoxigenic E PCR Not Detected (NotDetected) Stool EPEC (PCR) Not Detected (NotDetected) Stool EAEC (PCR) Not Detected (NotDetected) Stl E. histolytica PCR Not Detected (NotDetected) Stool Giardia Lamblia PCR Not Detected (NotDetected) Stool Salmonella PCR Not Detected (NotDetected) Stool Sapovirus (PCR) Not Detected (NotDetected) Stl P. shigelloides PCR Not Detected (NotDetected) Stl Shigella/EIEC PCR Not Detected (NotDetected) St Y.enterocolitica PCR Not Detected (NotDetected) Stool Vibrio (PCR) Not Detected (NotDetected) Stl Vibrio cholerae PCR Not Detected (NotDetected) Stl Norovirus GI/GII PCR Not Detected (NotDetected) Ethyl Alcohol mg/dL (<10.0) mg/dl Blood Type Antibody Screen 12/30/22 12/30/22 12/30/22 Range/Units 00:02 00:00 00:00 WBC (4.8-10.8) K/ul RBC (4.70-6.10) M/uL Hgb (14.0-18.0) g/dl Hct (42.0-52.0) % MCV (80.0-100.0) fL MCH (25.0-34.0) pg MCHC (32.0-36.0) g/dL RDW Std Deviation (36.4-46.3) fL RDW Coeff of Shanika (11.5-14.5) % Plt Count (130-400) K/uL MPV (9.4-12.4) fL Immature Gran % (Auto) % Neut % (Auto) % Lymph % (Auto) % [place] % (Auto) % Eos % (Auto) % Baso % (Auto) % Neut # (Auto) (1.40-6.50) K/uL Lymph # (Auto) (1.20-3.40) K/uL [place] # (Auto) (0.11-0.59) K/uL Eos # (Auto) (0.00-0.50) K/uL Baso # (Auto) (0.00-0.20) K/uL Immature Gran # (Auto) (0.01-0.20) K/uL Platelet Estimate (Normal) PT 10.6 (9.0-12.0) Seconds INR 1.0 (0.9-1.1) APTT 27.1 (21.0-31.0) Seconds PTT Ratio 1.0 Sodium (136-145) mmol/L Potassium Chloride (98-107) mmol/L Carbon Dioxide (21-32) mmol/L Anion Gap (3-11) BUN (6-23) mg/dl Creatinine (0.6-1.4) mg/dl Est Cr Clr Drug Dosing ml/min Est GFR ( Amer) ml/min Est GFR (Non-Af Amer) ml/min BUN/Creatinine Ratio (10-20) Glucose (70-99(Fasting)) mg/dl Calcium (8.6-10.3) mg/dl Magnesium (1.7-2.4) mg/dl Total Bilirubin (0.2-1.0) mg/dl AST ALT (7-52) U/L Alkaline Phosphatase (34-104) U/L Troponin I High Sens (0-20) pg/ml Total Protein (6.0-8.3) gm/dl Albumin (3.4-5.0) gm/dl Globulin (2.5-4.0) gm/dl Albumin/Globulin Ratio (0.9-2) Lipase (11-82) U/L Stl C. cayetanensis PCR (NotDetected) Stool Rotavirus A PCR (NotDetected) Stl Adenov F 40/41 PCR (NotDetected) Stool Astrovirus (PCR) (NotDetected) Stool Campylobacter PCR (NotDetected) Stl C. diff Tox B Gene (Neg) Stl C.difficile Tox A&B (Negative) Stool Cryptosporidium PCR (NotDetected) Stl E.coli Shiga Tox PCR (NotDetected) Stl Enterotoxigenic E PCR (NotDetected) Stool EPEC (PCR) (NotDetected) Stool EAEC (PCR) (NotDetected) Stl E. histolytica PCR (NotDetected) Stool Giardia Lamblia PCR (NotDetected) Stool Salmonella PCR (NotDetected) Stool Sapovirus (PCR) (NotDetected) Stl P. shigelloides PCR (NotDetected) Stl Shigella/EIEC PCR (NotDetected) St Y.enterocolitica PCR (NotDetected) Stool Vibrio (PCR) (NotDetected) Stl Vibrio cholerae PCR (NotDetected) Stl Norovirus GI/GII PCR (NotDetected) Ethyl Alcohol mg/dL 285.0 H (<10.0) mg/dl Blood Type A Positive Antibody Screen NEGATIVE 12/29/22 12/29/22 12/29/22 Range/Units 23:00 21:45 21:45 WBC 8.11 (4.8-10.8) K/ul RBC 3.75 L (4.70-6.10) M/uL Hgb 14.3 (14.0-18.0) g/dl Hct 38.7 L (42.0-52.0) % MCV 103.2 H (80.0-100.0) fL MCH 38.1 H (25.0-34.0) pg MCHC 37.0 H (32.0-36.0) g/dL RDW Std Deviation 53.1 H (36.4-46.3) fL RDW Coeff of Shanika 14.2 (11.5-14.5) % Plt Count 158 (130-400) K/uL MPV 9.6 (9.4-12.4) fL Immature Gran % (Auto) 0.5 % Neut % (Auto) 70.8 % Lymph % (Auto) 19.2 % [place] % (Auto) 8.4 % Eos % (Auto) 0.2 % Baso % (Auto) 0.9 % Neut # (Auto) 5.74 (1.40-6.50) K/uL Lymph # (Auto) 1.56 (1.20-3.40) K/uL [place] # (Auto) 0.68 H (0.11-0.59) K/uL Eos # (Auto) 0.02 (0.00-0.50) K/uL Baso # (Auto) 0.07 (0.00-0.20) K/uL Immature Gran # (Auto) 0.04 (0.01-0.20) K/uL Platelet Estimate Decreased L (Normal) PT (9.0-12.0) Seconds INR (0.9-1.1) APTT (21.0-31.0) Seconds PTT Ratio Sodium 136 (136-145) mmol/L Potassium 2.9 L TNP Chloride 98 (98-107) mmol/L Carbon Dioxide 28 (21-32) mmol/L Anion Gap 10 (3-11) BUN 4 L (6-23) mg/dl Creatinine 0.49 L (0.6-1.4) mg/dl Est Cr Clr Drug Dosing 160.0 ml/min Est GFR ( Amer) > 150.0 ml/min Est GFR (Non-Af Amer) 132.9 ml/min BUN/Creatinine Ratio 8.2 L (10-20) Glucose 92 (70-99(Fasting)) mg/dl Calcium 8.3 L (8.6-10.3) mg/dl Magnesium 2.0 (1.7-2.4) mg/dl Total Bilirubin 0.6 (0.2-1.0) mg/dl AST 32 TNP ALT 17 (7-52) U/L Alkaline Phosphatase 134 H (34-104) U/L Troponin I High Sens 6.7 (0-20) pg/ml Total Protein 6.3 (6.0-8.3) gm/dl Albumin 3.4 (3.4-5.0) gm/dl Globulin 2.9 (2.5-4.0) gm/dl Albumin/Globulin Ratio 1.2 (0.9-2) Lipase 41 (11-82) U/L Stl C. cayetanensis PCR (NotDetected) Stool Rotavirus A PCR (NotDetected) Stl Adenov F 40/41 PCR (NotDetected) Stool Astrovirus (PCR) (NotDetected) Stool Campylobacter PCR (NotDetected) Stl C. diff Tox B Gene (Neg) Stl C.difficile Tox A&B (Negative) Stool Cryptosporidium PCR (NotDetected) Stl E.coli Shiga Tox PCR (NotDetected) Stl Enterotoxigenic E PCR (NotDetected) Stool EPEC (PCR) (NotDetected) Stool EAEC (PCR) (NotDetected) Stl E. histolytica PCR (NotDetected) Stool Giardia Lamblia PCR (NotDetected) Stool Salmonella PCR (NotDetected) Stool Sapovirus (PCR) (NotDetected) Stl P. shigelloides PCR (NotDetected) Stl Shigella/EIEC PCR (NotDetected) St Y.enterocolitica PCR (NotDetected) Stool Vibrio (PCR) (NotDetected) Stl Vibrio cholerae PCR (NotDetected) Stl Norovirus GI/GII PCR (NotDetected) Ethyl Alcohol mg/dL (<10.0) mg/dl Blood Type Antibody Screen
[2022-12-30 10:08] LABS: Hematocrit (blood only) 35.5 % (42.0-52.0); Hemoglobin 12.9 g/dl (14.0-18.0)
[2022-12-30 10:26] LABS: Anion Gap 14 (3-11); BUN Creatinine Ratio 11.6 (10-20); Blood Urea Nitrogen 5 mg/dl (6-23); Calcium 6.8 mg/dl (8.6-10.3); Carbon Dioxide 19 mmol/L (21-32); Chloride 105 mmol/L (98-107); Creatinine Clr Calc Pharmacy 182.3 ml/min; Est GFR (African American) > 150.0 ml/min; Est GFR (Non-African American) 140.2 ml/min; Glucose 49 mg/dl (70-99(Fasting)); Magnesium 1.6 mg/dl (1.7-2.4); Potassium 3.3 mmol/L (3.5-5.1); Sodium 138 mmol/L (136-145)
[2022-12-30] MEDS: SERTRALINE HCL 50 MG TABLET PO SCH (10:39)
[2022-12-30] MEDS: GABAPENTIN 600 MG TAB PO SCH ×2 (10:40→18:29)
[2022-12-30] MEDS ORDERED: MAGNESIUM SULFATE / D5W 1 GM/100 ML BAG IV SCH (14:30)
--- NOTE | 2022-12-30 15:43 | Electrocardiogram Report ---
Test Reason : Blood Pressure : / mmHG Vent. Rate : 085 BPM Atrial Rate : 085 BPM P-R Int : 124 ms QRS Dur : 078 ms QT Int : 356 ms P-R-T Axes : 063 064 057 degrees QTc Int : 423 ms Normal sinus rhythm Normal ECG When compared with ECG of 14-APR-2022 15:57, T wave amplitude has decreased in Anterolateral leads Confirmed by Cornel Hernandez ([id number]) on 12/30/2022 3:43:23 PM Referred By: REFERRED SELF Confirmed By:Cornel Hernandez
[2022-12-30 19:19] LABS: Hematocrit (blood only) 32.1 % (42.0-52.0); Hemoglobin 11.7 g/dl (14.0-18.0)
[2022-12-31] MEDS: GABAPENTIN 600 MG TAB PO SCH ×3 (01:58→16:12)
[2022-12-31 08:12] LABS: Anion Gap 7 (3-11); BUN Creatinine Ratio 7.1 (10-20); Blood Urea Nitrogen 3 mg/dl (6-23); Calcium 7.1 mg/dl (8.6-10.3); Carbon Dioxide 30 mmol/L (21-32); Chloride 100 mmol/L (98-107); Creatinine Clr Calc Pharmacy 198.9 ml/min; Est GFR (African American) > 150.0 ml/min; Est GFR (Non-African American) 141.6 ml/min; Glucose 70 mg/dl (70-99(Fasting)); Potassium 3.3 mmol/L (3.5-5.1); Sodium 137 mmol/L (136-145)
[2022-12-31 08:19] LABS: Basophils # (auto) 0.05 K/uL (0.00-0.20); Basophils % (auto) 0.6 %; Eosinophils # (auto) 0.06 K/uL (0.00-0.50); Eosinophils % (auto) 0.7 %; Hematocrit (blood only) 36.2 % (42.0-52.0); Hemoglobin 12.7 g/dl (14.0-18.0); Immature Granulocytes # (auto) 0.05 K/uL (0.01-0.20); Immature Granulocytes % (auto) 0.6 %; Lymphocytes # (auto) 1.32 K/uL (1.20-3.40); Lymphocytes % (auto) 15.3 %; Mean Corpuscular Hemoglobin 37.4 pg (25.0-34.0); Mean Corpuscular Hgb Conc 35.1 g/dL (32.0-36.0); Mean Corpuscular Volume 106.5 fL (80.0-100.0); Mean Platelet Volume 9.5 fL (9.4-12.4); Monocytes % (auto) 8.1 %; Neutrophils # (auto) 6.43 K/uL (1.40-6.50); Neutrophils % (auto) 74.7 %; Platelet Count 121 K/uL (130-400); RDW Coefficient of Variation 14.4 % (11.5-14.5); RDW Standard Deviation 55.8 fL (36.4-46.3); White Blood Count 8.61 K/ul (4.8-10.8)
[2022-12-31] MEDS: NICOTINE 21 MG/24 HR TDSY TD SCH (09:13)
[2022-12-31] MEDS: MULTIVITAMIN TAB PO SCH (09:14)
[2022-12-31] MEDS: SERTRALINE HCL 50 MG TABLET PO SCH (09:14)
[2022-12-31] MEDS: THIAMINE HCL 100 MG TAB PO SCH (09:15)
[2022-12-31] MEDS: FOLIC ACID 1 MG TAB PO SCH (09:15)
--- NOTE | 2022-12-31 16:32 | Hospitalist Progress Note ---
Date of Service December 31, 2022 Assessment & Plan (1) Acute GI bleeding: (2) Acute blood loss anemia (ABLA): (3) Abdominal pain: (4) Alcohol withdrawal: Plan Mr. Day is a 42 year old gentleman with history of etoh abuse who was admitted for concern of GIB. Imaging revealed concerns of ileocolitis. Patient denies any reported history of such. GI on consult, given continued stability and no further bleeding, decision made for IV PPI therapy for 48 hours with plans for OP GI follow up. #GIB, c/f colitis -No hematemesis, VS stable, hgb stable, no further bloody show -Continue IV PPI, plans to transition to PO PPI tomorrow 01/01 for 1 month (EOT 01/29) -Trend CBC #Acute anemia, likely secondary to blood loss from GI *stable -Hgb baseline 14-16, now 12. -Order Iron studies, B12, folate -Monitor fur further signs of bleeding -PPI as above -Monitor on tele #Alcohol withdrawal -patient markedly tremulous -Continue gabapentin taper -ALBERT ongoing #Anxiety/mood disorder, -Continue sertraline Rx by PCP #ongoing tobacco abuse -Nicotine patch -Encourage cessation #Hypokalemia secondary to emesis/diarrhea -Replace lytes prn Bowel:prn GI: PPI BID DVT prophylaxis. SCDs Re: GI bleed Full code Admission and Anticipated Discharge Date Admission Date: December 30, 2022 Subjective Patient evaluated at bedside Reports mild improvement in diarrhea and notes resolution of bloody output. Patient denies any history of unintended weight loss, prior diarrhea/bloody stool Denies any chest pain, palpitations, or other acute concerns. Patient states he has been on gabapentin taper previously and feels stable on current regimen Review of Systems Review of Systems: All systems reviewed & are unremarkable except as noted in Subjective Physical Exam Constitutional: WD/WN, vitals as above general tremulouslness Respiratory: normal respiratory effort, lungs clear to auscultation Cardiovascular: tachycardic Gastrointestinal (Abdomen): normal bowel sounds, soft, nontender, no hepatosplenomegaly Musculoskeletal: no cyanosis or clubbing, extremities motor strength 5/5 Neurologic: no focal deficits, tremulous on exam, but conversational Psychiatric: A+Ox3, euthymic affect Results & Data Results & Data Vital Signs (Past 12 Hours) Vital Signs Temp Pulse Pulse Resp BP Pulse Ox O2 Del Method 12/31/22 15:26 109 H 12/31/22 14:28 36.8 C 81 18 158/87 H 97 Room Air 12/31/22 11:28 36.9 C 78 16 137/88 97 Room Air 12/31/22 10:19 86 12/31/22 08:10 36.8 C 90 18 138/91 97 Room Air Laboratory Results Short CBC 12/30/22 12/31/22 Range/Units 19:08 07:05 WBC 8.61 (4.8-10.8) K/ul Hgb 11.7 L 12.7 L (14.0-18.0) g/dl Hct 32.1 L 36.2 L (42.0-52.0) % Plt Count 121 L (130-400) K/uL BMP 12/31/22 07:05 Sodium 137 Potassium 3.3 L Chloride 100 Carbon Dioxide 30 BUN 3 L Creatinine 0.42 L Glucose 70 Calcium 7.1 L Diagnostic Findings no new diagnostic data for review Medications Administered Home Medications Medication Instructions Recorded Confirmed Last Taken multivitamin 1 tab PO DAILY 04/14/22 12/29/22 11/03/22 hydroxyzine pamoate 25 mg capsule 25 - 50 mg PO DAILY PRN Anxiety 10/25/22 12/29/22 11/03/22 dicyclomine 10 mg capsule 10 mg PO QID PRN Abdominal 12/29/22 12/29/22 Unknown Discomfort sertraline 50 mg tablet 50 mg PO QAM 12/29/22 12/29/22 Unknown Active Medications Generic Name Dose Route Start Last Admin Trade Name Andres PRN Reason Stop Dose Admin Folic Acid 1 mg 12/31/22 09:00 12/31/22 09:15 Folic Acid 1 Mg Tab PO 01/30/23 08:59 1 mg QAM [facility] Administration Miscellaneous 1 each 12/31/22 08:59 12/31/22 09:16 Remove Nicoderm Patch N/A 01/30/23 08:58 1 each [id number] [facility] Administration Multivitamins 1 tab 12/31/22 09:00 12/31/22 09:14 Multivitamin Tab PO 01/30/23 08:59 1 tab DAILY [facility] Administration Nicotine 21 mg 12/31/22 09:00 12/31/22 09:13 Nicotine 21 Mg/24 Hr Tdsy TD 01/30/23 08:59 21 mg QAM ELS[facility] Administration Sertraline HCl 50 mg 12/30/22 09:00 12/31/22 09:14 Sertraline Hcl 50 Mg Tablet PO 01/29/23 08:59 50 mg QAM ELSY Administration Thiamine HCl 100 mg 12/31/22 09:00 12/31/22 09:15 Thiamine Hcl 100 Mg Tab PO 01/30/23 08:59 100 mg QAM ELSY Administration
[2023-01-01] MEDS ORDERED: GABAPENTIN 600 MG TAB PO SCH (04:00)
[2023-01-01 07:59] LABS: Hematocrit (blood only) 38.7 % (42.0-52.0); Hemoglobin 13.9 g/dl (14.0-18.0); Mean Corpuscular Hemoglobin 37.9 pg (25.0-34.0); Mean Corpuscular Hgb Conc 35.9 g/dL (32.0-36.0); Mean Corpuscular Volume 105.4 fL (80.0-100.0); Mean Platelet Volume 9.5 fL (9.4-12.4); Platelet Count 135 K/uL (130-400); RDW Standard Deviation 54.6 fL (36.4-46.3); Red Blood Count 3.67 M/uL (4.70-6.10); White Blood Count 5.85 K/ul (4.8-10.8)
[2023-01-01 08:11] LABS: Alanine Aminotransferase 23 U/L (7-52); Albumin Globulin Ratio 1.2 (0.9-2); Albumin Level 3.2 gm/dl (3.4-5.0); Alkaline Phosphatase 116 U/L (34-104); Anion Gap 5 (3-11); Aspartate Aminotransferase 49 U/L (13-39); BUN Creatinine Ratio 7.1 (10-20); Blood Urea Nitrogen 3 mg/dl (6-23); Calcium 7.9 mg/dl (8.6-10.3); Carbon Dioxide 32 mmol/L (21-32); Chloride 98 mmol/L (98-107); Creatinine Clr Calc Pharmacy 184.8 ml/min; Est GFR (African American) > 150.0 ml/min; Est GFR (Non-African American) 141.6 ml/min; Globulin 2.6 gm/dl (2.5-4.0); Glucose 114 mg/dl (70-99(Fasting)); Iron 107 mcg/dl (35-175); Potassium 3.2 mmol/L (3.5-5.1); Sodium 135 mmol/L (136-145); Total Iron Binding Cap Calc 237 mcg/dl (250-450); Total Protein 5.8 gm/dl (6.0-8.3); Transferrin (FE) Percent Satur 45 % (20-50); Unsaturated Iron Binding Cap 130 mcg/dl (155-355)
[2023-01-01] MEDS: NICOTINE 21 MG/24 HR TDSY TD SCH (08:22)
[2023-01-01] MEDS: MULTIVITAMIN TAB PO SCH (08:22)
[2023-01-01] MEDS: THIAMINE HCL 100 MG TAB PO SCH (08:23)
[2023-01-01] MEDS: SERTRALINE HCL 50 MG TABLET PO SCH (08:23)
[2023-01-01] MEDS: FOLIC ACID 1 MG TAB PO SCH (08:23)
[2023-01-01 08:46] LABS: Folate (Folic Acid),Ser orPlas 9.36 ng/ml (>5.38)
[2023-01-01] MEDS ORDERED: PANTOprazole 40 MG TAB PO SCH (09:00)
[2023-01-01] MEDS ORDERED: POTASSIUM CHLORIDE CRTAB 20 MEQ TABCR PO STA (10:45)
--- NOTE | 2023-01-01 11:02 | Discharge Summary ---
Discharge Summary Date of Service January 01, 2023 Notes For Next Care Provider [ ] Follow up with GI Medication Changes From Visit - Started on Protonix 40mg BID EOT 01/29 for 1 month course Admission HPI Per Admitting Provider History obtained from patient and records. Medical history significant for anxiety/mood disorder, ongoing tobacco/alcohol abuse. Last confinement March 2022 for alcohol withdrawal. Recent ER visit October 2022 for alcohol detox. Patient subsequently discharged home. Patient started drinking again after 2 weeks. 3 weeks ago, patient noted increased frequency of bowel movements (not diarrhea as per patient). No black/bloody stools. Mucoid/jellylike bowel movements. Achy lower abdominal pain, some weight loss. 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 Impression was diarrhea predominant IBS. Low FODMAP diet and alcohol avoidance recommended by PCP. Dicyclomine prescribed as needed for diarrhea. Sertraline also started for anxiety/mood disorder. Outpatient blood work and stool work-up recommended. Stool sample still needs to be submitted. Melanotic stool and worsening abdominal pain noted the last few days. Bilious emesis. No chest pain, no SOB. Outpatient GI referral for EGD contemplated by PCP's office. Patient consulted ER for worsening symptoms. IV Protonix infusion initiated at the ER. Medical History as above No prior endoscopies Surgical History : tonsillectomy/Adenoidectomy Family History : DM, lung cancer, heart disease, COPD; negative IBD as per patient Personal/Social history :1 pack daily, alcohol abuse, prior work as a electrical lineman Admission Exam Per Admitting Provider GENERAL: Slightly uncomfortable, tremulous, underweight, no respiratory distress SKIN: Normal color, warm HEENT: [place] palpebral conjunctivae, no ptosis, dry buccal mucosa NECK : Supple, no tenderness CHEST : CTA, no tenderness HEART : RRR, no obvious murmurs ABDOMEN: Some distention, central abdominal tenderness EXTREMITIES : No LE swelling/tenderness, no other conspicuous deformities noted NEUROLOGIC : Coherent, no facial asymmetry, tremulous, no other gross focality Principal Dx & Hospital Course #1 = Principal Diagnosis (1) Acute GI bleeding: (2) Acute blood loss anemia (ABLA): (3) Abdominal pain: (4) Alcohol withdrawal: Plan Mr. Day is a 42 year old gentleman with history of etoh abuse who was admitted for concern of GIB. Imaging revealed concerns of ileocolitis. Patient denies any reported history of such. GI on consult, given continued stability and no further bleeding, decision made for IV PPI therapy for 48 hours with plans for OP GI follow up. Patient remained with stable hemoglobin for 48 hours with return of formed stool. On day of discharge, patient denied any pain, endorsed strong appetite and tolerated diet. #GIB, c/f colitis -PO Pantoprazole 40mg BID for 1 month, EOT 01/29 #Acute anemia, likely secondary to blood loss from GI *stable -Hgb baseline 14-16, now up to 13 upon discharge -Encouraged Folate and B12 supplementation -OP GI follow up for scope #Alcohol withdrawal #Chronic alcohol missuse -Patient declined further taper or programs for OP cessation #Anxiety/mood disorder, -Continue sertraline Rx by PCP #ongoing tobacco abuse -Encouraged cessation Discharge Exam Constitutional WD/WN, vitals as above Respiratory normal respiratory effort, lungs clear to auscultation Gastrointestinal (Abdomen) normal bowel sounds, soft, nontender, no hepatosplenomegaly Musculoskeletal no cyanosis or clubbing, extremities motor strength 5/5 Psychiatric A+Ox3, euthymic affect Updated Medication List Medication Instructions Recorded Confirmed Type multivitamin 1 tab PO DAILY 04/14/22 12/29/22 History hydroxyzine pamoate 25 mg capsule 25 - 50 mg PO DAILY PRN Anxiety 10/25/22 12/29/22 History dicyclomine 10 mg capsule 10 mg PO QID PRN Abdominal 12/29/22 12/29/22 History Discomfort sertraline 50 mg tablet 50 mg PO QAM 12/29/22 12/29/22 History folic acid 1 mg tablet 1 mg PO QAM 30 days #30 tabs 01/01/23 Rx pantoprazole 40 mg tablet,delayed 40 mg PO BID 28 days #56 tabs 01/01/23 Rx release thiamine HCl (vitamin B1) 100 mg 100 mg PO QAM #30 tabs 01/01/23 Rx tablet Hospital Stay Data Consultations 12/30/22 02:54 ED Decision to Admit Stat 12/30/22 04:41 Consult Gastroenterology Routine Diagnostic Imagining Performed 12/29/22 23:05 CT Abd and Pelvis [CT abd pelvis IV con only] Stat Pending Results Patient Have Any Pending Studies at Discharge: No Discharge Instructions Given to Patient (Per Discharging Provider) You were admitted for concerns of bleeding and diarrhea. Your imaging revealed concerns for possible colitis, or inflammation of the colon. The GI doctors evaluated you and recommended your follow up as an outpatient for further evaluation. Your blood levels (hemoglobin) remained stable during your admission with no further episodes of bleeding reported. [ ]You will need to continue pantoprazole (protonix) two times a day for 1 month (until 01/29/2023) This helps promote healing in areas of irritation and preventing further bleeding It is recommended that you continue Thiamine and Folic acid supplementation. -Thiamine 100mg in the morning -Folate 1mg in the morning These are over the counter, but submitted to pharmacy. Pharmacist can assist and best and cost-effective option if not covered. [ ]You will need to follow up with GI Please continue all other routine medications as directed Until established with GI and further evaluated for concerns of colitis, please trial low-fiber/low residue diet. Some guidance regarding diet is attached Total Time Total Time Spent Total Time Spent (In Minutes): 35
[2023-01-02] MEDS ORDERED: GABAPENTIN 600 MG TAB PO SCH (16:00)
== END 2023-01-01 11:25 | disposition home or self-care (01) | DRG 392 ==
LOC: ED 19:25 → SUATTDRO 12-30 03:25 → EDINP 12-30 03:25 → 2W 12-30 04:41